=== PATIENT | male | born 1960 | race Caucasian/White ===

== ENCOUNTER 2018-02-26 17:22 | Emergency (ER) | payer BC ==
[2018-02-26 17:36] VITALS: BP 140/85
[2018-02-26] MEDS ORDERED: Sodium Chloride 0.9% 10 ML Syringe FLUSH PRN ×2 (17:47→18:56)
[2018-02-26] MEDS ORDERED: HYDROmorphone 0.5 MG/0.5 ML SYRINGE IVPUSH ONE (17:49)
[2018-02-26] MEDS ORDERED: Sodium Chloride 0.9% 1,000 ML IV SCH (18:00)
--- NOTE | 2018-02-26 18:33 | EDM.PDOC ---
ED HPI GENERAL MEDICAL PROBLEM - General Chief Complaint: ENT Problem Stated Complaint: NECK SWELLING AFTER CERVICAL FUSION Time Seen by Provider: 02/26/18 17:32 Source of Information: Reports: Patient History Limitations: Reports: No Limitations - History of Present Illness INITIAL COMMENTS - FREE TEXT/NARRATIVE: The patient presents with a sore throat and trouble swallowing. The patient had cervical spine surgery with an anterior technique at [facility] in [place] earlier this week. He was discharged from [facility] on Thursday. He is now having a sore throat, trouble swallowing and swelling in his throat and neck. He has more pain in his neck but he is not taking his pain meds as prescribed. He has no numbness or weakness. He has no fever, chills, cough, chest pain, shortness of breath, abdominal pain, nausea or vomiting. He was seen at the walk in clinic yesterday and a rapid strep was negative. Onset: Gradual Duration: Day(s): (2) Location: Reports: Neck Quality: Reports: Sharp Severity: Moderate Improves with: Reports: None Worsens with: Reports: None Associated Symptoms: Denies: Chest Pain, Cough, Fever/Chills, Headaches, Nausea/ Vomiting, Shortness of Breath Treatments OIL DIPPER: Reports: Cervical Collar anterior throat Pain Score (Numeric/FACES): 7 - Related Data Allergies Allergy/AdvReac Type Severity Reaction Status Date / Time aspirin Allergy Anxiety Verified 02/26/18 17:36 Home Meds: Home Meds glipiZIDE [Glucotrol] 10 mg PO BID 03/23/15 [History] Carvedilol [Coreg] 6.25 mg PO BID 02/26/18 [History] Cyclobenzaprine [Flexeril] 10 mg PO TID PRN 02/26/18 [History] Diltiazem [Tiazac] 360 mg PO DAILY 02/26/18 [History] Hydrocodone/Acetaminophen [Hydrocodon-Acetaminophen 5-325] 1 each PO TID PRN [History] Polyethylene Glycol 3350 [MiraLAX] 17 gm PO DAILY PRN 02/26/18 [History] Ramipril [Altace] 10 mg PO DAILY 02/26/18 [History] Sennosides/Docusate Sodium [Senna-Docusate Sodium] 1 each PO DAILY 02/26/18 [ History] Past Medical History Cardiovascular History: Reports: Hypertension Endocrine/Metabolic History: Reports: Diabetes, Type II Social & Family History - Family History Family Medical History: Noncontributory - Tobacco Use Smoking Status *Q: Current Every Day Smoker Years of Tobacco use: 38 Packs/Tins Daily: 0.3 Second Hand Smoke Exposure: No - Caffeine Use Caffeine Use: Reports: Coffee - Alcohol Use Days Per Week of Alcohol Use: 7 Number of Drinks Per Day: 4 Total Drinks Per Week: 28 - Recreational Drug Use Recreational Drug Use: No ED ROS ENT - Review of Systems Review Of Systems: See Below Constitutional: Reports: No Symptoms HEENT: Reports: Throat Pain, Throat Swelling Respiratory: Reports: No Symptoms Cardiovascular: Reports: No Symptoms Endocrine: Reports: No Symptoms GI/Abdominal: Reports: No Symptoms : Reports: No Symptoms Musculoskeletal: Reports: Neck Pain Skin: Reports: No Symptoms Neurological: Reports: No Symptoms ED EXAM, ENT - Physical Exam Exam: See Below Exam Limited By: No Limitations General Appearance: Alert, No Apparent Distress Ears: Normal External Exam Nose: Normal Inspection Mouth/Throat: Normal Oropharynx, Other (Dry mucus membranes) Head: Atraumatic, Normocephalic Neck: Other (Anterior scar with no erythema, drainage or edema. The tissue around that area is soft with mild edema.) Respiratory/Chest: No Respiratory Distress, Lungs Clear, Normal Breath Sounds Cardiovascular: Regular Rate, Rhythm, No Edema, No Murmur GI/Abdominal: Soft, Non-Tender, No Organomegaly, No Mass Back: Normal Inspection Extremities: Normal Inspection Neurological: Alert, Oriented, No Motor/Sensory Deficits Course - Vital Signs Last Recorded V/S: Last Vital Signs Temp 98.3 F 02/26/18 17:28 Pulse 77 02/26/18 17:28 Resp 18 02/26/18 17:28 BP 140/85 02/26/18 17:28 Pulse Ox 98 02/26/18 17:28 - Orders/Labs/Meds Orders: Active Orders 24 hr Category Date Time Status Cardiac Monitoring [RC] . DIRECTED Care 02/26/18 17:47 Active Peripheral IV Care [RC] . DIRECTED Care 02/26/18 17:49 Active Soft Tissue Neck w Cont [CT] Stat Exams 02/26/18 18:55 Taken Sodium Chloride 0.9% [Normal Saline] 1,000 ml Med 02/26/18 18:00 Active IV ASDIRECTED Sodium Chloride 0.9% [Saline Flush] Med 02/26/18 17:47 Active 10 ml FLUSH ASDIRECTED PRN Sodium Chloride 0.9% [Saline Flush] Med 02/26/18 18:56 Active 10 ml FLUSH ONETIME PRN Peripheral IV Insertion Adult [OM.PC] Stat Oth 02/26/18 17:47 Ordered Medication Orders Sodium Chloride (Normal Saline) 1,000 mls @ 125 mls/hr IV ASDIRECTED CORTEZ Last Admin: 02/26/18 18:01 Dose: 125 mls/hr Sodium Chloride (Saline Flush) 10 ml FLUSH ASDIRECTED PRN PRN Reason: Keep Vein Open Last Admin: 02/26/18 18:01 Dose: 10 ml Sodium Chloride (Saline Flush) 10 ml FLUSH ONETIME PRN PRN Reason: IV FLUSH Last Admin: 02/26/18 18:57 Dose: 10 ml Labs: Laboratory Tests 02/26/18 02/26/18 Range/Units 17:55 17:55 WBC 5.30 (4.23-9.07) K/mm3 RBC 3.98 L (4.63-6.08) M/mm3 Hgb 13.3 L (13.7-17.5) gm/L Hct 37.5 L (40.1-51.0) % MCV 94.2 H (79.0-92.2) fl MCH 33.4 H (25.7-32.2) pg MCHC 35.5 (32.2-35.5) g/dl RDW Std Deviation 38.2 (35.1-43.9) fL Plt Count 137 L (163-337) K/mm3 MPV 10.6 (9.4-12.3) fl Neut % (Auto) 71.5 H (34.0-67.9) % Lymph % (Auto) 13.8 L (21.8-53.1) % [place] % (Auto) 12.6 H (5.3-12.2) % Eos % (Auto) 1.7 (0.8-7.0) Baso % (Auto) 0.2 (0.1-1.2) % Neut # (Auto) 3.79 (1.78-5.38) K/mm3 Lymph # (Auto) 0.73 L (1.32-3.57) K/mm3 [place] # (Auto) 0.67 (0.30-0.82) K/mm3 Eos # (Auto) 0.09 (0.04-0.54) K/mm3 Baso # (Auto) 0.01 (0.01-0.08) K/mm3 Sodium 133 L (136-145) mEq/L Potassium 3.8 (3.5-5.1) mEq/L Chloride 97 L (98-107) mEq/L Carbon Dioxide 26 (21-32) mEq/L Anion Gap 13.8 (5-15) BUN 13 (7-18) mg/dL Creatinine 0.9 (0.7-1.3) mg/dL Est Cr Clr Drug Dosing 106.56 mL/min Estimated GFR (MDRD) > 60 (>60) mL/min BUN/Creatinine Ratio 14.4 (14-18) Glucose 285 H (74-106) mg/dL Calcium 8.9 (8.5-10.1) mg/dL Total Bilirubin 0.8 (0.2-1.0) mg/dL AST 5 L (15-37) U/L ALT 20 (16-63) U/L Alkaline Phosphatase 55 (46-116) U/L Total Protein 6.8 (6.4-8.2) g/dl Albumin 3.5 (3.4-5.0) g/dl Globulin 3.3 gm/dL Albumin/Globulin Ratio 1.1 (1-2) Meds: Medications Generic Name Dose Route Start Last Admin Trade Name Freq PRN Reason Stop Dose Admin Sodium Chloride 1,000 mls @ 125 mls/hr 02/26/18 18:00 02/26/18 18:01 Normal Saline IV 125 mls/hr ASDIRECTED CORTEZ Administration Sodium Chloride 10 ml 02/26/18 17:47 02/26/18 18:01 Saline Flush FLUSH 10 ml ASDIRECTED PRN Administration Keep Vein Open Sodium Chloride 10 ml 02/26/18 18:56 02/26/18 18:57 Saline Flush FLUSH 10 ml ONETIME PRN Administration IV FLUSH Discontinued Medications Generic Name Dose Route Start Last Admin Trade Name Freq PRN Reason Stop Dose Admin Hydromorphone HCl 0.5 mg 02/26/18 17:49 02/26/18 18:01 Dilaudid IVPUSH 02/26/18 17:50 0.5 mg ONETIME ONE Administration Iopamidol 100 ml 02/26/18 18:56 02/26/18 18:57 Isovue-300 (61%) IVPUSH 02/26/18 18:57 100 ml ONETIME ONE Administration - Re-Assessments/Exams Free Text/Narrative Re-Assessment/Exam: 02/26/18 18:33 I ordered an IV NS at 125mL/hr, dilaudid 0.5mg IV, labs and a CT of the soft tissue of his neck with IV contrast. 02/26/18 19:11 His CBC looks good. His blood sugar was elevated at 285. I am waiting on the CT now. 02/26/18 19:[address] looks good. There is postoperative changes but no swelling or pushing on the airway. He does have a 1.5cm nodule in the left thyroid. He will need to see his doctor and have an US. Departure - Departure Time of Disposition: 19:25 Disposition: Home, Self-Care 01 Condition: Good Clinical Impression: Sore throat, Thyroid nodule - Discharge Information Referrals: Peng Norman Jr, MD [Primary Care Provider] - 1 Week Forms: ED Department Discharge Additional Instructions: Take your medication as prescribed. On CT you had a 1.5cm thyroid nodule. Follow up with your doctor. He may need to order an US to look at it. Please return if you are worse. - My Orders Last 24 Hours: My Active Orders 02/26/18 17:47 Cardiac Monitoring [RC] . DIRECTED Sodium Chloride 0.9% [Saline Flush] 10 ml FLUSH ASDIRECTED PRN Peripheral IV Insertion Adult [OM.PC] Stat 02/26/18 17:49 Peripheral IV Care [RC] . DIRECTED 02/26/18 18:00 Sodium Chloride 0.9% [Normal Saline] 1,000 ml IV ASDIRECTED 02/26/18 18:55 Soft Tissue Neck w Cont [CT] Stat 02/26/18 18:56 Sodium Chloride 0.9% [Saline Flush] 10 ml FLUSH ONETIME PRN - Assessment/Plan Last 24 Hours: My Active Orders 02/26/18 17:47 Cardiac Monitoring [RC] . DIRECTED Sodium Chloride 0.9% [Saline Flush] 10 ml FLUSH ASDIRECTED PRN Peripheral IV Insertion Adult [OM.PC] Stat 02/26/18 17:49 Peripheral IV Care [RC] . DIRECTED 02/26/18 18:00 Sodium Chloride 0.9% [Normal Saline] 1,000 ml IV ASDIRECTED 02/26/18 18:55 Soft Tissue Neck w Cont [CT] Stat 02/26/18 18:56 Sodium Chloride 0.9% [Saline Flush] 10 ml FLUSH ONETIME PRN
[2018-02-26] MEDS ORDERED: Iopamidol 612 MG/ML 100 ML Bottle IVPUSH ONE (18:56)
--- NOTE | 2018-02-27 16:37 | CT ---
CT neck Technique: Multiple axial sections through the neck were obtained. Intravenous contrast was utilized. Reconstructed coronal and sagittal images were reviewed. Findings: Evidence of previous cervical spine surgery is seen with anterior plate and screws. There is low density noted with thickening seen within the prevertebral soft tissues most likely due to normal postoperative swelling. No focal findings of abscess are seen at this time. Submandibular and parotid salivary glands are within normal limits. Normal-appearing lymph nodes seen within both sides of the neck. Atherosclerotic calcification is noted within the carotid siphon. Opacified left maxillary sinus is seen which appears to be chronic. Retention cyst is identified within the right maxillary sinus measuring 1.3 cm. Thyroid gland shows small area of non-enhancement within both posterior lower lobes most likely incidental. Impression: 1. Previous cervical spine surgery. Low density with soft tissue swelling noted within the prevertebral soft tissues most likely due to normal postoperative swelling. 2. Chronic appearing sinus findings. 3. Low density within the posterior thyroid gland most likely incidental. 4. Nothing acute is appreciated on CT study of the neck. Diagnostic code #2 I agree with preliminary report from [facility], finalized at 02/26/18, 8:14 PM Central Time
== END 2018-02-26 19:33 | disposition home or self-care (01) ==
LOC: JD.ED 17:22
DX: J02.9 Acute pharyngitis, unspecified (principal); E04.1 Nontoxic single thyroid nodule; I10 Essential (primary) hypertension; E11.9 Type 2 diabetes mellitus without complications; F17.210 Nicotine dependence, cigarettes, uncomplicated; Z88.6 Allergy status to analgesic agent; Z79.899 Other long term (current) drug therapy
CPT/HCPCS: 36415; 70491; 80053; 85025; 96361; 96374; 99284; J1170; J7040; J7050; Q9967

== ENCOUNTER 2018-05-19 19:57 | Emergency (ER) | payer BC ==
[2018-05-19 20:05] VITALS: BP 165/96
[2018-05-19] MEDS ORDERED: Sodium Chloride 0.9% 10 ML Syringe FLUSH PRN (20:43)
--- NOTE | 2018-05-19 20:49 | EDM.PDOC ---
ED HPI GENERAL MEDICAL PROBLEM - General Chief Complaint: Respiratory Problem Stated Complaint: COUGH Time Seen by Provider: 05/19/18 20:11 Source of Information: Reports: Patient, Family History Limitations: Reports: No Limitations - History of Present Illness INITIAL COMMENTS - FREE TEXT/NARRATIVE: Patient is a 57-year-old male presents emergency department complaining of a cough. Patient states he has had a significant cough for the last week and a half and has been unable to get rid of it with [id number] medications. Patient states he had the cough is productive of white mucus. Patient reports feeling warm/subjective temperature yesterday, back pain, chest congestion with a heavy feeling, and constipation. He denies any chills nausea vomiting abdominal pain diarrhea or rashes itches or joint pains. Patient does admit experiencing lower extremity edema which is new for him. Patient denies any history of cardiac problems. He states he recently had a workup which was negative for any cardiac diagnoses. However, patient states that he has had to sleep in his recliner lately because when he lays down flat it makes his coughing much worse. Onset: Gradual Duration: Week(s): (1.5), Getting Worse Location: Reports: Other (See history of present illness) Quality: Reports: Other (CHPI) Severity: Moderate Improves with: Reports: None Worsens with: Reports: Rest Context: Reports: Other (See history of present illness) Associated Symptoms: Reports: Cough, cough w sputum, Shortness of Breath, Other (Peripheral edema, orthopnea). Denies: Diaphoresis, Headaches, Loss of Appetite , Malaise, Nausea/Vomiting, Seizure Bilateral Chest Pain Score (Numeric/FACES): 6 - Related Data Allergies Allergy/AdvReac Type Severity Reaction Status Date / Time aspirin Allergy Anxiety Verified 05/19/18 20:05 Home Meds: Home Meds glipiZIDE [Glucotrol] 10 mg PO BID 03/23/15 [History] Carvedilol [Coreg] 6.25 mg PO BID 02/26/18 [History] Cyclobenzaprine [Flexeril] 10 mg PO TID PRN 02/26/18 [History] Diltiazem [Tiazac] 360 mg PO DAILY 02/26/18 [History] Hydrocodone/Acetaminophen [Hydrocodon-Acetaminophen 5-325] 1 each PO TID PRN [History] Polyethylene Glycol 3350 [MiraLAX] 17 gm PO DAILY PRN 02/26/18 [History] Ramipril [Altace] 10 mg PO DAILY 02/26/18 [History] Sennosides/Docusate Sodium [Senna-Docusate Sodium] 1 each PO DAILY 02/26/18 [ History] Cephalexin [Keflex] 500 mg PO Q8HR #30 capsule 05/19/18 [Rx] Furosemide [Lasix] 20 mg PO DAILY #5 tab 05/19/18 [Rx] Past Medical History Cardiovascular History: Reports: Hypertension Respiratory History: Reports: Pneumonia, Recurrent Psychiatric History: Reports: Anxiety Endocrine/Metabolic History: Reports: Diabetes, Type II - Past Surgical History HEENT Surgical History: Reports: Adenoidectomy, Tonsillectomy Neurological Surgical History: Reports: C-Spine Other Neurological Surgeries/Procedures: cervical fusion Social & Family History - Family History Family Medical History: Noncontributory - Tobacco Use Smoking Status *Q: Current Every Day Smoker Years of Tobacco use: 35 Packs/Tins Daily: 0.4 - Caffeine Use Caffeine Use: Reports: Coffee - Alcohol Use Days Per Week of Alcohol Use: 7 Number of Drinks Per Day: 5 Total Drinks Per Week: 35 - Recreational Drug Use Recreational Drug Use: Yes ED ROS GENERAL - Review of Systems Review Of Systems: See Below Constitutional: Reports: Fever (Subjective temperature yesterday) HEENT: Reports: No Symptoms Respiratory: Reports: Shortness of Breath (Orthopnea), Cough, Sputum Cardiovascular: Reports: Edema, Orthopnea Endocrine: Reports: No Symptoms GI/Abdominal: Reports: Constipation : Reports: No Symptoms Musculoskeletal: Reports: Neck Pain (Postsurgical, C1-C7 fusion in the last month) Skin: Reports: No Symptoms Neurological: Reports: No Symptoms Psychiatric: Reports: No Symptoms Hematologic/Lymphatic: Reports: No Symptoms Immunologic: Reports: No Symptoms ED EXAM, GENERAL - Physical Exam Exam: See Below Exam Limited By: No Limitations General Appearance: Alert, WD/WN, No Apparent Distress, Mild Distress (With staccato cough) Eye Exam: Bilateral Eye: EOMI, PERRL Ears: Normal External Exam, Normal Canal, Hearing Grossly Normal, Normal TMs Ear Exam: Bilateral Ear: Auricle Normal, Canal Normal, TM normal Nose: Normal Inspection, Normal Mucosa, No Blood Throat/Mouth: Normal Inspection, Normal Lips, Normal Gums, Normal Oropharynx, Normal Voice, No Airway Compromise Head: Atraumatic, Normocephalic Neck: Normal Inspection (Postsurgical scarring) Respiratory/Chest: No Accessory Muscle Use, Chest Non-Tender, Decreased Breath Sounds, Wheezing. No: Respiratory Distress Cardiovascular: Normal Peripheral Pulses, Regular Rate, Rhythm, No Gallop, No JVD, No Rub, Systolic Murmur, Other (Bilateral peripheral edema) Peripheral Pulses: 4+: Radial (L), Radial (R) GI/Abdominal: Normal Bowel Sounds, Soft, Non-Tender, No Distention, No Abnormal Bruit, No Mass Back Exam: Normal Inspection Extremities: Normal Inspection, Normal Range of Motion, Non-Tender, Normal Capillary Refill, Pedal Edema Neurological: Alert, Oriented, CN II-XII Intact, Normal Cognition Psychiatric: Normal Affect, Normal Mood Skin Exam: Warm, Dry, Intact, Normal Color, No Rash Course - Vital Signs Last Recorded V/S: Last Vital Signs Temp 98.2 F 05/19/18 20:01 Pulse 89 05/19/18 20:01 Resp 20 05/19/18 20:01 BP 165/96 H 05/19/18 20:01 Pulse Ox 95 05/19/18 20:01 - Orders/Labs/Meds Orders: Active Orders 24 hr Category Date Time Status RT Aerosol Therapy [RC] ASDIRECTED Care 05/19/18 22:46 Active Chest 2V [CR] Stat Exams 05/19/18 20:43 Taken UA W/MICROSCOPIC [URIN] Stat Lab 05/19/18 21:24 Ordered Sodium Chloride 0.9% [Saline Flush] Med 05/19/18 20:43 Active 10 ml FLUSH ASDIRECTED PRN Saline Lock Insert [OM.PC] Stat Oth 05/19/18 20:42 Ordered EKG 12 Lead [EK] Stat Ther 05/19/18 22:47 Ordered Medication Orders Sodium Chloride (Saline Flush) 10 ml FLUSH ASDIRECTED PRN PRN Reason: Keep Vein Open Last Admin: 05/19/18 21:08 Dose: 10 ml Labs: Laboratory Tests 05/19/18 05/19/18 05/19/18 Range/Units 20:53 20:53 20:53 WBC 7.63 (4.23-9.07) K/mm3 RBC 4.41 L (4.63-6.08) M/mm3 Hgb 14.6 (13.7-17.5) gm/L Hct 41.4 (40.1-51.0) % MCV 93.9 H (79.0-92.2) fl MCH 33.1 H (25.7-32.2) pg MCHC 35.3 (32.2-35.5) g/dl RDW Std Deviation 44.0 H (35.1-43.9) fL Plt Count 178 (163-337) K/mm3 MPV 10.0 (9.4-12.3) fl Neut % (Auto) 77.7 H (34.0-67.9) % Lymph % (Auto) 11.1 L (21.8-53.1) % [place] % (Auto) 9.3 (5.3-12.2) % Eos % (Auto) 1.4 (0.8-7.0) Baso % (Auto) 0.1 (0.1-1.2) % Neut # (Auto) 5.92 H (1.78-5.38) K/mm3 Lymph # (Auto) 0.85 L (1.32-3.57) K/mm3 [place] # (Auto) 0.71 (0.30-0.82) K/mm3 Eos # (Auto) 0.11 (0.04-0.54) K/mm3 Baso # (Auto) 0.01 (0.01-0.08) K/mm3 Sodium 138 (136-145) mEq/L Potassium 3.4 L (3.5-5.1) mEq/L Chloride 100 (98-107) mEq/L Carbon Dioxide 26 (21-32) mEq/L Anion Gap 15.4 H (5-15) BUN 9 (7-18) mg/dL Creatinine 1.0 (0.7-1.3) mg/dL Est Cr Clr Drug Dosing 95.90 mL/min Estimated GFR (MDRD) > 60 (>60) mL/min BUN/Creatinine Ratio 9.0 L (14-18) Glucose 343 H (74-106) mg/dL Calcium 8.6 (8.5-10.1) mg/dL Total Bilirubin 0.5 (0.2-1.0) mg/dL AST 21 (15-37) U/L ALT 41 (16-63) U/L Alkaline Phosphatase 85 (46-116) U/L Troponin I < 0.017 (0.00-0.056) ng/mL NT-Pro-B Natriuret Pep 251 H (0-125) pg/mL Total Protein 6.6 (6.4-8.2) g/dl Albumin 3.5 (3.4-5.0) g/dl Globulin 3.1 gm/dL Albumin/Globulin Ratio 1.1 (1-2) Urine Color (Yellow) Urine Appearance (Clear) Urine pH (5.0-8.0) Ur Specific [place] (1.005-1.030) Urine Protein (Negative) Urine Glucose (UA) (Negative) Urine Ketones (Negative) Urine Occult Blood (Negative) Urine Nitrite (Negative) Urine Bilirubin (Negative) Urine Urobilinogen (0.2-1.0) Ur Leukocyte Esterase (Negative) Urine RBC (0-5) /hpf Urine WBC (0-5) /hpf Urine WBC Clumps (NOT SEEN) /hpf Ur Epithelial Cells (0-5) /hpf Urine Bacteria (FEW) /hpf Urine Mucus (FEW) /hpf 05/19/18 05/19/18 Range/Units 21:24 23:05 WBC (4.23-9.07) K/mm3 RBC (4.63-6.08) M/mm3 Hgb (13.7-17.5) gm/L Hct (40.1-51.0) % MCV (79.0-92.2) fl MCH (25.7-32.2) pg MCHC (32.2-35.5) g/dl RDW Std Deviation (35.1-43.9) fL Plt Count (163-337) K/mm3 MPV (9.4-12.3) fl Neut % (Auto) (34.0-67.9) % Lymph % (Auto) (21.8-53.1) % [place] % (Auto) (5.3-12.2) % Eos % (Auto) (0.8-7.0) Baso % (Auto) (0.1-1.2) % Neut # (Auto) (1.78-5.38) K/mm3 Lymph # (Auto) (1.32-3.57) K/mm3 [place] # (Auto) (0.30-0.82) K/mm3 Eos # (Auto) (0.04-0.54) K/mm3 Baso # (Auto) (0.01-0.08) K/mm3 Sodium (136-145) mEq/L Potassium (3.5-5.1) mEq/L Chloride (98-107) mEq/L Carbon Dioxide (21-32) mEq/L Anion Gap (5-15) BUN (7-18) mg/dL Creatinine (0.7-1.3) mg/dL Est Cr Clr Drug Dosing mL/min Estimated GFR (MDRD) (>60) mL/min BUN/Creatinine Ratio (14-18) Glucose (74-106) mg/dL Calcium (8.5-10.1) mg/dL Total Bilirubin (0.2-1.0) mg/dL AST (15-37) U/L ALT (16-63) U/L Alkaline Phosphatase (46-116) U/L Troponin I < 0.017 (0.00-0.056) ng/mL NT-Pro-B Natriuret Pep (0-125) pg/mL Total Protein (6.4-8.2) g/dl Albumin (3.4-5.0) g/dl Globulin gm/dL Albumin/Globulin Ratio (1-2) Urine Color Yellow (Yellow) Urine Appearance Clear (Clear) Urine pH 6.5 (5.0-8.0) Ur Specific [place] 1.015 (1.005-1.030) Urine Protein Negative (Negative) Urine Glucose (UA) 3+ H (Negative) Urine Ketones Trace H (Negative) Urine Occult Blood 1+ H (Negative) Urine Nitrite Negative (Negative) Urine Bilirubin Negative (Negative) Urine Urobilinogen 0.2 (0.2-1.0) Ur Leukocyte Esterase 1+ H (Negative) Urine RBC 0-5 (0-5) /hpf Urine WBC 10-20 H (0-5) /hpf Urine WBC Clumps Few (NOT SEEN) /hpf Ur Epithelial Cells 0-5 (0-5) /hpf Urine Bacteria Rare (FEW) /hpf Urine Mucus Not seen (FEW) /hpf Meds: Medications Generic Name Dose Route Start Last Admin Trade Name Freq PRN Reason Stop Dose Admin Sodium Chloride 10 ml 05/19/18 20:43 05/19/18 21:08 Saline Flush FLUSH 10 ml ASDIRECTED PRN Administration Keep Vein Open Discontinued Medications Generic Name Dose Route Start Last Admin Trade Name Zahida PRN Reason Stop Dose Admin Albuterol 2.5 mg 05/19/18 22:46 05/19/18 23:23 Proventil Neb Soln NEB 05/19/18 22:47 2.5 mg ONETIME ONE Administration Cephalexin 500 mg 05/19/18 22:45 05/19/18 22:56 Keflex PO 05/19/18 22:46 500 mg ONETIME ONE Administration Furosemide 40 mg 05/19/18 22:17 05/19/18 22:30 Lasix IVPUSH 05/19/18 22:18 40 mg NOW ONE Administration - Radiology Interpretation Free Text/Narrative:: Patient had a two-view chest x-ray which was interpreted by me as having no acute disease no focal infiltrate no pneumothorax no free air. Departure - Departure Time of Disposition: 23:44 Disposition: Refer to Observation Condition: Good Clinical Impression: CHF (congestive heart failure), NYHA class I Qualifiers: Congestive heart failure type: unspecified Qualified Code(s): I50.9 - Heart failure, unspecified Urinary tract infection Qualifiers: Urinary tract infection type: site unspecified Hematuria presence: without hematuria Qualified Code(s): N39.0 - Urinary tract infection, site not specified - Discharge Information *PRESCRIPTION DRUG MONITORING PROGRAM REVIEWED*: Not Applicable *COPY OF PRESCRIPTION DRUG MONITORING REPORT IN PATIENT [place]: Not Applicable Prescriptions: Cephalexin [Keflex] 500 mg PO Q8HR #30 capsule Furosemide [Lasix] 20 mg PO DAILY #5 tab Instructions: Urinary Tract Infection, Adult, Preventing Heart Failure Referrals: Peng Norman Jr, MD [Primary Care Provider] - Forms: ED Department Discharge - My Orders Last 24 Hours: My Active Orders 05/19/18 20:42 Saline Lock Insert [OM.PC] Stat 05/19/18 20:43 Chest 2V [CR] Stat Sodium Chloride 0.9% [Saline Flush] 10 ml FLUSH ASDIRECTED PRN 05/19/18 21:24 UA W/MICROSCOPIC [URIN] Stat 05/19/18 22:46 RT Aerosol Therapy [RC] ASDIRECTED 05/19/18 22:47 EKG 12 Lead [EK] Stat - Assessment/Plan Last 24 Hours: My Active Orders 05/19/18 20:42 Saline Lock Insert [OM.PC] Stat 05/19/18 20:43 Chest 2V [CR] Stat Sodium Chloride 0.9% [Saline Flush] 10 ml FLUSH ASDIRECTED PRN 05/19/18 21:24 UA W/MICROSCOPIC [URIN] Stat 05/19/18 22:46 RT Aerosol Therapy [RC] ASDIRECTED 05/19/18 22:47 EKG 12 Lead [EK] Stat
[2018-05-19] MEDS ORDERED: Furosemide 40 MG/4 ML VIAL IVPUSH ONE (22:17)
[2018-05-19] MEDS ORDERED: Cephalexin 500 MG Cap PO ONE (22:45)
[2018-05-19] MEDS ORDERED: Albuterol 0.083% 2.5 MG/3 ML Neb Soln NEB ONE (22:46)
--- NOTE | 2018-05-19 23:53 | EDM.PDOC ---
ED HPI GENERAL MEDICAL PROBLEM - General Chief Complaint: Respiratory Problem Stated Complaint: COUGH Time Seen by Provider: 05/19/18 20:11 Source of Information: Reports: Patient, Family History Limitations: Reports: No Limitations - History of Present Illness INITIAL COMMENTS - FREE TEXT/NARRATIVE: Patient is a 57-year-old male presents emergency department complaining of a cough. Patient states he has had a significant cough for the last week and a half and has been unable to get rid of it with [id number] medications. Patient states he had the cough is productive of white mucus. Patient reports feeling warm/subjective temperature yesterday, back pain, chest congestion with a heavy feeling, and constipation. He denies any chills nausea vomiting abdominal pain diarrhea or rashes itches or joint pains. Patient does admit experiencing lower extremity edema which is new for him. Patient denies any history of cardiac problems. He states he recently had a workup which was negative for any cardiac diagnoses. However, patient states that he has had to sleep in his recliner lately because when he lays down flat it makes his coughing much worse. Onset: Gradual Duration: Week(s): (1.5), Getting Worse Location: Reports: Other (See history of present illness) Quality: Reports: Other (CHPI) Severity: Moderate Improves with: Reports: None Worsens with: Reports: Rest Context: Reports: Other (See history of present illness) Associated Symptoms: Reports: Cough, cough w sputum, Shortness of Breath, Other (Peripheral edema, orthopnea). Denies: Diaphoresis, Headaches, Loss of Appetite , Malaise, Nausea/Vomiting, Seizure Bilateral Chest Pain Score (Numeric/FACES): 6 - Related Data Allergies Allergy/AdvReac Type Severity Reaction Status Date / Time aspirin Allergy Anxiety Verified 05/19/18 20:05 Home Meds: Home Meds glipiZIDE [Glucotrol] 10 mg PO BID 03/23/15 [History] Carvedilol [Coreg] 6.25 mg PO BID 02/26/18 [History] Cyclobenzaprine [Flexeril] 10 mg PO TID PRN 02/26/18 [History] Diltiazem [Tiazac] 360 mg PO DAILY 02/26/18 [History] Hydrocodone/Acetaminophen [Hydrocodon-Acetaminophen 5-325] 1 each PO TID PRN [History] Polyethylene Glycol 3350 [MiraLAX] 17 gm PO DAILY PRN 02/26/18 [History] Ramipril [Altace] 10 mg PO DAILY 02/26/18 [History] Sennosides/Docusate Sodium [Senna-Docusate Sodium] 1 each PO DAILY 02/26/18 [ History] Cephalexin [Keflex] 500 mg PO Q8HR #30 capsule 05/19/18 [Rx] Furosemide [Lasix] 20 mg PO DAILY #5 tab 05/19/18 [Rx] Potassium Bicarb/Potassium Chl [Potassium Chloride] 25 meq PO DAILY #5 tab.eff 05/20/18 [Rx] Past Medical History Cardiovascular History: Reports: Hypertension Respiratory History: Reports: Pneumonia, Recurrent Psychiatric History: Reports: Anxiety Endocrine/Metabolic History: Reports: Diabetes, Type II - Past Surgical History HEENT Surgical History: Reports: Adenoidectomy, Tonsillectomy Neurological Surgical History: Reports: C-Spine Other Neurological Surgeries/Procedures: cervical fusion Social & Family History - Family History Family Medical History: Noncontributory - Tobacco Use Smoking Status *Q: Current Every Day Smoker Years of Tobacco use: 35 Packs/Tins Daily: 0.4 - Caffeine Use Caffeine Use: Reports: Coffee - Alcohol Use Days Per Week of Alcohol Use: 7 Number of Drinks Per Day: 5 Total Drinks Per Week: 35 - Recreational Drug Use Recreational Drug Use: Yes ED ROS GENERAL - Review of Systems Review Of Systems: See Below Constitutional: Reports: Fever (Subjective temperature). Denies: Chills, Diaphoresis HEENT: Reports: No Symptoms Respiratory: Reports: Shortness of Breath, Cough, Sputum Cardiovascular: Reports: Edema. Denies: Chest Pain Endocrine: Reports: No Symptoms GI/Abdominal: Reports: No Symptoms : Reports: No Symptoms Musculoskeletal: Reports: No Symptoms Skin: Reports: No Symptoms Neurological: Reports: No Symptoms Psychiatric: Reports: No Symptoms Hematologic/Lymphatic: Reports: No Symptoms Immunologic: Reports: No Symptoms ED EXAM, GENERAL - Physical Exam Exam: See Below Free Text/Narrative:: Patient is a 57-year-old male presents emergency department complaining of a cough. Patient states he has had a significant cough for the last week and a half and has been unable to get rid of it with [id number] medications. Patient states he had the cough is productive of white mucus. Patient reports feeling warm/subjective temperature yesterday, back pain, chest congestion with a heavy feeling, and constipation. He denies any chills nausea vomiting abdominal pain diarrhea or rashes itches or joint pains. Patient does admit experiencing lower extremity edema which is new for him. Patient denies any history of cardiac problems. He states he recently had a workup which was negative for any cardiac diagnoses. However, patient states that he has had to sleep in his recliner lately because when he lays down flat it makes his coughing much worse. Exam Limited By: No Limitations General Appearance: Alert, WD/WN, No Apparent Distress, Mild Distress (With staccato cough) Ears: Normal External Exam, Normal Canal, Hearing Grossly Normal, Normal TMs Ear Exam: Bilateral Ear: Auricle Normal, Canal Normal, TM normal Nose: Normal Inspection, Normal Mucosa, No Blood Throat/Mouth: Normal Inspection, Normal Lips, Normal Gums, Normal Oropharynx, Normal Voice, No Airway Compromise Head: Atraumatic, Normocephalic Neck: Normal Inspection (Postsurgical scarring) Respiratory/Chest: No Accessory Muscle Use, Chest Non-Tender, Decreased Breath Sounds, Wheezing. No: Respiratory Distress Cardiovascular: Normal Peripheral Pulses, Regular Rate, Rhythm, No Gallop, No JVD, No Rub, Systolic Murmur, Other (Bilateral peripheral edema) Peripheral Pulses: 4+: Radial (L), Radial (R) GI/Abdominal: Normal Bowel Sounds, Soft, Non-Tender, No Distention, No Abnormal Bruit, No Mass Back Exam: Normal Inspection Extremities: Normal Inspection, Normal Range of Motion, Non-Tender, Normal Capillary Refill, Pedal Edema Neurological: Alert, Oriented, CN II-XII Intact, Normal Cognition Psychiatric: Normal Affect, Normal Mood Skin Exam: Warm, Dry, Intact, Normal Color, No Rash Course - Vital Signs Last Recorded V/S: Last Vital Signs Temp 98.2 F 05/19/18 20:01 Pulse 89 05/19/18 20:01 Resp 20 05/19/18 20:01 BP 165/96 H 05/19/18 20:01 Pulse Ox 95 05/19/18 20:01 - Orders/Labs/Meds Orders: Active Orders 24 hr Category Date Time Status RT Aerosol Therapy [RC] ASDIRECTED Care 05/19/18 22:46 Active UA W/MICROSCOPIC [URIN] Stat Lab 05/19/18 21:24 Ordered Saline Lock Insert [OM.PC] Stat Oth 05/19/18 20:42 Ordered EKG 12 Lead [EK] Stat Ther 05/19/18 22:47 Ordered Labs: Laboratory Tests 05/19/18 05/19/18 05/19/18 Range/Units 20:53 20:53 20:53 WBC 7.63 (4.23-9.07) K/mm3 RBC 4.41 L (4.63-6.08) M/mm3 Hgb 14.6 (13.7-17.5) gm/L Hct 41.4 (40.1-51.0) % MCV 93.9 H (79.0-92.2) fl MCH 33.1 H (25.7-32.2) pg MCHC 35.3 (32.2-35.5) g/dl RDW Std Deviation 44.0 H (35.1-43.9) fL Plt Count 178 (163-337) K/mm3 MPV 10.0 (9.4-12.3) fl Neut % (Auto) 77.7 H (34.0-67.9) % Lymph % (Auto) 11.1 L (21.8-53.1) % Alpine % (Auto) 9.3 (5.3-12.2) % Eos % (Auto) 1.4 (0.8-7.0) Baso % (Auto) 0.1 (0.1-1.2) % Neut # (Auto) 5.92 H (1.78-5.38) K/mm3 Lymph # (Auto) 0.85 L (1.32-3.57) K/mm3 Alpine # (Auto) 0.71 (0.30-0.82) K/mm3 Eos # (Auto) 0.11 (0.04-0.54) K/mm3 Baso # (Auto) 0.01 (0.01-0.08) K/mm3 Sodium 138 (136-145) mEq/L Potassium 3.4 L (3.5-5.1) mEq/L Chloride 100 (98-107) mEq/L Carbon Dioxide 26 (21-32) mEq/L Anion Gap 15.4 H (5-15) BUN 9 (7-18) mg/dL Creatinine 1.0 (0.7-1.3) mg/dL Est Cr Clr Drug Dosing 95.90 mL/min Estimated GFR (MDRD) > 60 (>60) mL/min BUN/Creatinine Ratio 9.0 L (14-18) Glucose 343 H (74-106) mg/dL Calcium 8.6 (8.5-10.1) mg/dL Total Bilirubin 0.5 (0.2-1.0) mg/dL AST 21 (15-37) U/L ALT 41 (16-63) U/L Alkaline Phosphatase 85 (46-116) U/L Troponin I < 0.017 (0.00-0.056) ng/mL NT-Pro-B Natriuret Pep 251 H (0-125) pg/mL Total Protein 6.6 (6.4-8.2) g/dl Albumin 3.5 (3.4-5.0) g/dl Globulin 3.1 gm/dL Albumin/Globulin Ratio 1.1 (1-2) Urine Color (Yellow) Urine Appearance (Clear) Urine pH (5.0-8.0) Ur Specific [place] (1.005-1.030) Urine Protein (Negative) Urine Glucose (UA) (Negative) Urine Ketones (Negative) Urine Occult Blood (Negative) Urine Nitrite (Negative) Urine Bilirubin (Negative) Urine Urobilinogen (0.2-1.0) Ur Leukocyte Esterase (Negative) Urine RBC (0-5) /hpf Urine WBC (0-5) /hpf Urine WBC Clumps (NOT SEEN) /hpf Ur Epithelial Cells (0-5) /hpf Urine Bacteria (FEW) /hpf Urine Mucus (FEW) /hpf 05/19/18 05/19/18 Range/Units 21:24 23:05 WBC (4.23-9.07) K/mm3 RBC (4.63-6.08) M/mm3 Hgb (13.7-17.5) gm/L Hct (40.1-51.0) % MCV (79.0-92.2) fl MCH (25.7-32.2) pg MCHC (32.2-35.5) g/dl RDW Std Deviation (35.1-43.9) fL Plt Count (163-337) K/mm3 MPV (9.4-12.3) fl Neut % (Auto) (34.0-67.9) % Lymph % (Auto) (21.8-53.1) % Alpine % (Auto) (5.3-12.2) % Eos % (Auto) (0.8-7.0) Baso % (Auto) (0.1-1.2) % Neut # (Auto) (1.78-5.38) K/mm3 Lymph # (Auto) (1.32-3.57) K/mm3 Alpine # (Auto) (0.30-0.82) K/mm3 Eos # (Auto) (0.04-0.54) K/mm3 Baso # (Auto) (0.01-0.08) K/mm3 Sodium (136-145) mEq/L Potassium (3.5-5.1) mEq/L Chloride (98-107) mEq/L Carbon Dioxide (21-32) mEq/L Anion Gap (5-15) BUN (7-18) mg/dL Creatinine (0.7-1.3) mg/dL Est Cr Clr Drug Dosing mL/min Estimated GFR (MDRD) (>60) mL/min BUN/Creatinine Ratio (14-18) Glucose (74-106) mg/dL Calcium (8.5-10.1) mg/dL Total Bilirubin (0.2-1.0) mg/dL AST (15-37) U/L ALT (16-63) U/L Alkaline Phosphatase (46-116) U/L Troponin I < 0.017 (0.00-0.056) ng/mL NT-Pro-B Natriuret Pep (0-125) pg/mL Total Protein (6.4-8.2) g/dl Albumin (3.4-5.0) g/dl Globulin gm/dL Albumin/Globulin Ratio (1-2) Urine Color Yellow (Yellow) Urine Appearance Clear (Clear) Urine pH 6.5 (5.0-8.0) Ur Specific [place] 1.015 (1.005-1.030) Urine Protein Negative (Negative) Urine Glucose (UA) 3+ H (Negative) Urine Ketones Trace H (Negative) Urine Occult Blood 1+ H (Negative) Urine Nitrite Negative (Negative) Urine Bilirubin Negative (Negative) Urine Urobilinogen 0.2 (0.2-1.0) Ur Leukocyte Esterase 1+ H (Negative) Urine RBC 0-5 (0-5) /hpf Urine WBC 10-20 H (0-5) /hpf Urine WBC Clumps Few (NOT SEEN) /hpf Ur Epithelial Cells 0-5 (0-5) /hpf Urine Bacteria Rare (FEW) /hpf Urine Mucus Not seen (FEW) /hpf Meds: Medications Discontinued Medications Generic Name Dose Route Start Last Admin Trade Name Freq PRN Reason Stop Dose Admin Albuterol 2.5 mg 05/19/18 22:46 05/19/18 23:23 Proventil Neb Soln NEB 05/19/18 22:47 2.5 mg ONETIME ONE Administration Cephalexin 500 mg 05/19/18 22:45 05/19/18 22:56 Keflex PO 05/19/18 22:46 500 mg ONETIME ONE Administration Furosemide 40 mg 05/19/18 22:17 05/19/18 22:30 Lasix IVPUSH 05/19/18 22:18 40 mg NOW ONE Administration Sodium Chloride 10 ml 05/19/18 20:43 05/19/18 21:08 Saline Flush FLUSH 10 ml ASDIRECTED PRN Administration Keep Vein Open Departure - Departure Time of Disposition: 23:50 Disposition: Home, Self-Care 01 Condition: Good Clinical Impression: Hypokalemia CHF (congestive heart failure), NYHA class I Qualifiers: Congestive heart failure type: unspecified Qualified Code(s): I50.9 - Heart failure, unspecified Urinary tract infection Qualifiers: Urinary tract infection type: site unspecified Hematuria presence: without hematuria Qualified Code(s): N39.0 - Urinary tract infection, site not specified - Discharge Information *PRESCRIPTION DRUG MONITORING PROGRAM REVIEWED*: Not Applicable *COPY OF PRESCRIPTION DRUG MONITORING REPORT IN PATIENT [place]: Not Applicable Prescriptions: Cephalexin [Keflex] 500 mg PO Q8HR #30 capsule Furosemide [Lasix] 20 mg PO DAILY #5 tab Potassium Bicarb/Potassium Chl [Potassium Chloride] 25 meq PO DAILY #5 tab.eff Instructions: Urinary Tract Infection, Adult, Preventing Heart Failure Referrals: Peng Norman Jr, MD [Primary Care Provider] - 3 Days Forms: ED Department Discharge - My Orders Last 24 Hours: My Active Orders 05/19/18 20:42 Saline Lock Insert [OM.PC] Stat 05/19/18 21:24 UA W/MICROSCOPIC [URIN] Stat 05/19/18 22:46 RT Aerosol Therapy [RC] ASDIRECTED 05/19/18 22:47 EKG 12 Lead [EK] Stat - Assessment/Plan Last 24 Hours: My Active Orders 05/19/18 20:42 Saline Lock Insert [OM.PC] Stat 05/19/18 21:24 UA W/MICROSCOPIC [URIN] Stat 05/19/18 22:46 RT Aerosol Therapy [RC] ASDIRECTED 05/19/18 22:47 EKG 12 Lead [EK] Stat
--- NOTE | 2018-05-20 06:51 | CR ---
Chest: Two views of the chest were obtained. Comparison: Prior chest x-ray of 03/07/12. Heart size and mediastinum are normal. Lungs are clear. Degenerative endplate spurring noted within the mid and lower thoracic spine with minimal scoliosis. Prior cervical spine surgery is noted. Impression: 1. Incidental findings. Nothing acute is seen on two-view chest x-ray. Diagnostic code #2
== END 2018-05-20 00:15 | disposition home or self-care (01) ==
LOC: JD.ED 19:57
DX: I11.0 Hypertensive heart disease with heart failure (principal); I50.9 Heart failure, unspecified; N39.0 Urinary tract infection, site not specified; E87.6 Hypokalemia; F41.9 Anxiety disorder, unspecified; E11.9 Type 2 diabetes mellitus without complications; F17.210 Nicotine dependence, cigarettes, uncomplicated; Z79.84 Long term (current) use of oral hypoglycemic drugs; Z79.899 Other long term (current) drug therapy; Z79.82 Long term (current) use of aspirin
CPT/HCPCS: 36415; 71046; 80053; 81001; 83880; 84484; 85025; 94640; 96374; 99284; A9270; J1940; J7050

== ENCOUNTER 2018-12-17 12:41 | Emergency (ER) | payer BC ==
[2018-12-17 13:31] VITALS: BP 162/98
--- NOTE | 2018-12-17 13:36 | EDM.PDOC ---
ED HPI GENERAL MEDICAL PROBLEM - General Chief Complaint: Neck Problem Stated Complaint: NECK PAIN Time Seen by Provider: 12/17/18 13:33 Source of Information: Reports: Patient History Limitations: Reports: No Limitations - History of Present Illness INITIAL COMMENTS - FREE TEXT/NARRATIVE: 58-year-old male presents to the ED with persistent diffuse cervical neck pain and radiculopathy particularly in his left upper extremity. Patient underwent cervical fusion by --neurosurgeon in [place] at [facility] in January of this last year. Pain is markedly improved compared to before surgery but he has chronic pain in the neck and radicular pain in his left upper extremity. States the pain is has good days and bad days. He states the left arm seems to be slowly getting a bit stronger but he has marked evidence of triceps wasting and radiculopathy in the C7 nerve root distribution. He states he is usually on Percocet 10/325 mg tabs for pain relief but has run short this month. He has nothing to get him through the weekend. He cannot get his regular prescription filled until Thursday-- due to insurance purposes. Onset: Other (Chronic cervical neck pain) Duration: Chronic Location: Reports: Neck Quality: Reports: Ache, Burning, Other (Sedating shooting pain in the C7 dermatome left arm) Severity: Moderate (6 or 7 out of 10) Improves with: Reports: None Worsens with: Reports: None Context: Reports: Other (Has chronic cervical neck pain with previous fusion carried out in January of last year. Fortunately did not relieve all of his pain and continues to have radiculopathy left upper extremity.). 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: Other (see below) Posterior Neck Pain Score (Numeric/FACES): 8 - Related Data Allergies Allergy/AdvReac Type Severity Reaction Status Date / Time aspirin Allergy Anxiety Verified 08/21/18 06:07 Home Meds: Home Meds glipiZIDE [Glucotrol] 10 mg PO BID 03/23/15 [History] Diltiazem [Tiazac] 360 mg PO DAILY 02/26/18 [History] Hydrocodone/Acetaminophen [Hydrocodon-Acetaminophen 5-325] 1 each PO TID PRN [History] Ramipril [Altace] 10 mg PO DAILY 02/26/18 [History] Diclofenac Sodium [Voltaren] 50 mg PO TID #30 tab.ec 08/21/18 [Rx] oxyCODONE HCl/Acetaminophen [Percocet 10-325 mg Tablet] 1 each PO Q3H PRN #30 tablet 08/21/18 [Rx] Carvedilol 6.25 mg PO DAILY 09/17/18 [History] Gabapentin [Neurontin] 100 mg PO Q8H #30 capsule 09/17/18 [Rx] oxyCODONE HCl/Acetaminophen [Percocet 5-325 mg Tablet] 1 - 2 each PO Q4H PRN # 24 tablet 12/17/18 [Rx] Past Medical History Cardiovascular History: Reports: High Cholesterol, Hypertension Respiratory History: Reports: Pneumonia, Recurrent Musculoskeletal History: Reports: Neck Pain, Chronic, Osteoarthritis Neurological History: Reports: Neuropathy, Peripheral Psychiatric History: Reports: Anxiety Endocrine/Metabolic History: Reports: Diabetes, Type II - Past Surgical History HEENT Surgical History: Reports: Adenoidectomy, Tonsillectomy Neurological Surgical History: Reports: C-Spine Social & Family History - Family History Family Medical History: Noncontributory - Caffeine Use Caffeine Use: Reports: Coffee - Living Situation & Occupation Living situation: Reports: , with Spouse 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 Denies: Fever, Chills, Malaise HEENT: Reports: Glasses Respiratory: Reports: No Symptoms Cardiovascular: Reports: No Symptoms Endocrine: Reports: No Symptoms GI/Abdominal: Reports: Constipation (Occasional problems) : Reports: No Symptoms Musculoskeletal: Reports: Neck Pain ( left side), Shoulder Pain (Left side), Arm Pain Skin: Reports: No Symptoms (chronic cervical neck pain ) Neurological: Reports: Paresthesia (Left upper extremity to his thumb.) Psychiatric: Reports: No Symptoms Hematologic/Lymphatic: Reports: No Symptoms Immunologic: Reports: No Symptoms ED EXAM, UPPER BACK/NECK PAIN - Physical Exam Exam: See Below Exam Limited By: No Limitations General Appearance: Alert, WD/WN, Other (Appears very tired.) Eye Exam: Bilateral Eye: Normal Inspection Head Exam: Atraumatic, Normocephalic Neck Exam: Normal Alignment, Normal Inspection, Painful Range of Motion, Paraspinous Muscle Tender, Stiff Neck, Other (Bilaterally.). No: Full Range of Motion Nexus Criteria: Posterior, Midline Cervical Tenderness ( Healed midline cervical neck incision.) Cardiovascular/Respiratory: Regular Rate, Rhythm, No M/R/G, Normal Peripheral Pulses Course - Vital Signs Last Recorded V/S: Last Vital Signs Temp 36.2 C 12/17/18 13:29 Pulse 80 12/17/18 13:29 Resp 20 12/17/18 13:29 BP 162/98 H 12/17/18 13:29 Pulse Ox 100 12/17/18 13:29 - Radiology Interpretation Free Text/Narrative:: 58-year-old male presents to the ED with exacerbation of pain in his neck. Patient has had spinal fusion carried out by a neurosurgeon in [place] January of last year. This did relieve a good amount of pain in his neck and left upper extremity but not all of it. He usually manages with Percocet 10/325 mg tablets one every 6 hours. He ran out of medication prematurely this month. He has a prescription for refill of medication from Dr. Norman but this is unable to be filled until Thursday due to insurance purposes. He therefore has been without medicine for the last few days and is requesting analgesia to get through the weekend. Will write him a prescription for the Percocet 5/325 mg tabs one or 2 every 4 hours as needed for pain relief 24 tabs to get him through the weekend. Departure - Departure Time of Disposition: 13:33 Disposition: Home, Self-Care 01 Condition: Fair Clinical Impression: Cervicalgia, Cervical radiculopathy, chronic - Discharge Information *PRESCRIPTION DRUG MONITORING PROGRAM REVIEWED*: Not Applicable *COPY OF PRESCRIPTION DRUG MONITORING REPORT IN PATIENT [place]: Not Applicable Prescriptions: oxyCODONE HCl/Acetaminophen [Percocet 5-325 mg Tablet] 1 - 2 each PO Q4H PRN # 24 tablet PRN Reason: pain relief. Referrals: Peng Norman Jr, MD [Primary Care Provider] - Forms: ED Department Discharge Additional Instructions: Evaluation in the emergency room in regards to chronic cervical /neck pain . Continued pain post surgery with Lt sided radicular pain. ran short of pain pills this month. Script written for Percocet 5/325mg tabs-- take 1-2 tabs every 4-6hrs as needed for pain relief over the weekend until able to get regular prescription re filled for chronic pain.
== END 2018-12-17 13:44 | disposition home or self-care (01) ==
LOC: JD.ED 12:41
DX: M54.12 Radiculopathy, cervical region (principal); I10 Essential (primary) hypertension; E11.9 Type 2 diabetes mellitus without complications
CPT/HCPCS: 99283

== ENCOUNTER 2019-01-16 18:15 | Emergency (ER) | payer BC ==
[2019-01-16 18:38] VITALS: BP 141/83
[2019-01-16] MEDS ORDERED: Ketorolac 30 MG/ML SDV IM ONE (19:01)
--- NOTE | 2019-01-16 19:05 | EDM.PDOC ---
ED HPI GENERAL MEDICAL PROBLEM - General Chief Complaint: Neck Problem Stated Complaint: SEVERE PAIN IN NECK AND LEFT ARM Time Seen by Provider: 01/16/19 18:36 Source of Information: Reports: Patient History Limitations: Reports: No Limitations - History of Present Illness INITIAL COMMENTS - FREE TEXT/NARRATIVE: Pt is 58 yo M here for chronic neck pain that radiates to left arm. He states he is taking Oxycodone 10mg TID but it hasn't worked for 3 weeks now. He has an appointment with his PCP, Dr. Norman, on Thursday. He is here for management of chronic pain. Left Arm Pain Score (Numeric/FACES): 8 Neck Pain Score (Numeric/FACES): 8 - Related Data Allergies Allergy/AdvReac Type Severity Reaction Status Date / Time aspirin Allergy Anxiety Verified 01/16/19 18:38 Home Meds: Home Meds glipiZIDE [Glucotrol] 10 mg PO BID 03/23/15 [History] Diltiazem [Tiazac] 360 mg PO DAILY 02/26/18 [History] Ramipril [Altace] 10 mg PO DAILY 02/26/18 [History] Diclofenac Sodium [Voltaren] 50 mg PO TID #30 tab.ec 08/21/18 [Rx] Carvedilol 6.25 mg PO DAILY 09/17/18 [History] oxyCODONE HCl/Acetaminophen [Percocet 5-325 mg Tablet] 1 - 2 each PO Q4H PRN # 24 tablet 12/17/18 [Rx] predniSONE [Prednisone] 20 mg PO DAILY 01/16/19 [History] predniSONE [Prednisone] 20 mg PO DAILY #2 tablet 01/16/19 [Rx] Past Medical History Cardiovascular History: Reports: High Cholesterol, Hypertension Respiratory History: Reports: Pneumonia, Recurrent Musculoskeletal History: Reports: Neck Pain, Chronic, Osteoarthritis Neurological History: Reports: Neuropathy, Peripheral Psychiatric History: Reports: Anxiety Endocrine/Metabolic History: Reports: Diabetes, Type II - Past Surgical History HEENT Surgical History: Reports: Adenoidectomy, Tonsillectomy Neurological Surgical History: Reports: C-Spine Social & Family History - Family History Family Medical History: Noncontributory - Caffeine Use Caffeine Use: Reports: Coffee - Living Situation & Occupation Living situation: Reports: , with Spouse Occupation: Employed ([email or web address]) ED ROS GENERAL - Review of Systems Review Of Systems: ROS reveals no pertinent complaints other than HPI. ED EXAM, UPPER BACK/NECK PAIN - Physical Exam Exam: See Below Exam Limited By: No Limitations General Appearance: Alert, WD/WN, Mild Distress Eye Exam: Bilateral Eye: EOMI, Normal Inspection, PERRL Ears Exam: Normal External Exam, Hearing Grossly Normal Nose Exam: Normal Inspection, Normal Mucousa, No Blood Head Exam: Atraumatic, Normocephalic Neck Exam: Limited Range of Motion, Painful Range of Motion, Stiff Neck, Tenderness Back Exam: Normal Inspection Extremities: Normal Inspection, Normal Range of Motion, Non-Tender, No Pedal Edema, Normal Capillary Refill Psychiatric: Normal Affect, Normal Mood Skin Exam: Normal Color, Warm/Dry Course - Vital Signs Last Recorded V/S: Last Vital Signs Temp 98.0 F 01/16/19 18:35 Pulse 89 01/16/19 18:35 Resp 20 01/16/19 18:35 BP 141/83 H 01/16/19 18:35 Pulse Ox 95 01/16/19 18:35 - Orders/Labs/Meds Meds: Medications Discontinued Medications Generic Name Dose Route Start Last Admin Trade Name Zahida PRN Reason Stop Dose Admin Ketorolac Tromethamine 30 mg 01/16/19 19:01 01/16/19 19:07 Toradol IM 01/16/19 19:02 30 mg ONETIME ONE Administration - Re-Assessments/Exams Free Text/Narrative Re-Assessment/Exam: 01/16/19 19:08 I have explained to Terrance that we do not treat chronic pain in the ED, especially not with opioids. However, I did tell him will give him a dose of Toradol while he is here to see if that helps. He has an appointment with his PCP on Thursday which is who he should be going to with this issue. He states he understands and would like to try the Toradol. 01/16/19 19:22 He did have some relief with the Toradol. Offered some prednisone which he is willing to try. Will send prescription in for him for a couple of days. Ultimately he understands he needs to f/u with PCP. Departure - Departure Time of Disposition: 19:11 Disposition: Home, Self-Care 01 Condition: Fair Clinical Impression: Neck pain of over 3 months duration - Discharge Information *PRESCRIPTION DRUG MONITORING PROGRAM REVIEWED*: Yes *COPY OF PRESCRIPTION DRUG MONITORING REPORT IN PATIENT R[place]: Yes Prescriptions: predniSONE [Prednisone] 20 mg PO DAILY #2 tablet Instructions: What You Need to Know About Chronic Back Pain Referrals: Peng Norman Jr, MD [Primary Care Provider] - Forms: ED Department Discharge Additional Instructions: You were seen in the ED today for chronic neck and left arm pain. You were given Toradol while here, but it was explained that we do not treat chronic pain in the ED, especialyl not with opioids. Since you did have some relief with the Toradol, prednisone (steroid) will be prescribed to you for a couple of days until your appointment. Please keep your appointment with your primary care provider, Dr. Norman on Thursday, for follow up and further treatment. Please return to ED if new or worsening symptoms.
== END 2019-01-16 19:34 | disposition home or self-care (01) ==
LOC: JD.ED 18:15
DX: G89.29 Other chronic pain (principal); M54.2 Cervicalgia; E11.42 Type 2 diabetes mellitus with diabetic polyneuropathy; E78.00 Pure hypercholesterolemia, unspecified; I10 Essential (primary) hypertension; D41.9 Neoplasm of uncertain behavior of unspecified urinary organ; Z88.8 Allergy status to other drugs, medicaments and biological substances; Z79.899 Other long term (current) drug therapy; Z79.84 Long term (current) use of oral hypoglycemic drugs
CPT/HCPCS: 96372; 99283; J1885

== ENCOUNTER 2019-02-15 21:21 | Emergency (ER) | payer BC ==
[2019-02-15 21:48] VITALS: BP 167/102
[2019-02-15] MEDS ORDERED: HYDROmorphone 1 MG/ML Syringe IM ONE (21:51)
[2019-02-15] MEDS ORDERED: Promethazine 25 MG/ML SDV IM ONE (21:52)
--- NOTE | 2019-02-15 21:54 | EDM.PDOC ---
ED HPI GENERAL MEDICAL PROBLEM - General Chief Complaint: General Stated Complaint: NECK PAIN GOING DOWN LEFT ARM Time Seen by Provider: 02/15/19 21:51 Source of Information: Reports: Patient, Family (spouse) History Limitations: Reports: No Limitations - History of Present Illness INITIAL COMMENTS - FREE TEXT/NARRATIVE: 58-year-old male attends the ED primarily for pain management. He has found out that his son-in-law is stealing his narcotics. He is currently using 10/325 mg of Percocet every 4-6 hours for cervical neck pain with radiculopathy in the C7 nerve root distribution left upper extremity. Patient is a great deal of pain tonight since he's had no pain medication today. I get his prescription refilled until Thursday this week. He has appointment to follow-up with Dr. Norman this week. Plan is to get him to see a neural surgeon with a view to having the disc in his neck fixed. Denies any nausea or vomiting. He appears exhausted he's not slept well for the last 3 nights. Onset: Other (Has been having cervical neck pain with left upper extremity radiculopathy for greater than 6 weeks.) Duration: Constant, Getting Worse Location: Reports: Neck, Upper Extremity, Left (With radiculopathy into the left upper extremity all the way down to his thumb) Quality: Reports: Ache, Burning, Other Severity: Severe (Burning sharp stabbing lancinating 10 out of 10) Improves with: Reports: None Worsens with: Reports: None Context: Denies: Activity, Exercise, Lifting, Sick Contact, Trauma Associated Symptoms: Reports: Malaise. 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) (None.) Neck Pain Score (Numeric/FACES): 10 - Related Data Allergies Allergy/AdvReac Type Severity Reaction Status Date / Time aspirin Allergy Anxiety Verified 02/15/19 21:41 Home Meds: Home Meds glipiZIDE [Glucotrol] 10 mg PO BID 03/23/15 [History] Diltiazem [Tiazac] 360 mg PO DAILY 02/26/18 [History] Ramipril [Altace] 10 mg PO DAILY 02/26/18 [History] Diclofenac Sodium [Voltaren] 50 mg PO TID #30 tab.ec 08/21/18 [Rx] Carvedilol 6.25 mg PO DAILY 09/17/18 [History] oxyCODONE HCl/Acetaminophen [Percocet 5-325 mg Tablet] 1 - 2 each PO Q4H PRN # 24 tablet 12/17/18 [Rx] oxyCODONE HCl/Acetaminophen [Percocet 5-325 mg Tablet] 1 - 2 each PO Q4H PRN # 20 tablet 02/15/19 [Rx] Past Medical History Cardiovascular History: Reports: High Cholesterol, Hypertension Respiratory History: Reports: Pneumonia, Recurrent Musculoskeletal History: Reports: Neck Pain, Chronic (With radiculopathy left upper extremity.), Osteoarthritis Neurological History: Reports: Neuropathy, Peripheral Psychiatric History: Reports: Anxiety Endocrine/Metabolic History: Reports: Diabetes, Type II (On diet and oral medications) - Past Surgical History HEENT Surgical History: Reports: Adenoidectomy, Tonsillectomy Neurological Surgical History: Reports: C-Spine Social & Family History - Family History Family Medical History: Noncontributory - Caffeine Use Caffeine Use: Reports: Coffee - Living Situation & Occupation Living situation: Reports: , with Spouse Occupation: Employed ([employer]) ED ROS GENERAL - Review of Systems Review Of Systems: See Below Constitutional: Reports: Malaise, Weakness, Fatigue, Decreased Appetite (From not sleeping), Weight Loss. Denies: Fever, Chills HEENT: Reports: No Symptoms Respiratory: Reports: No Symptoms Cardiovascular: Reports: No Symptoms Endocrine: Reports: Fatigue GI/Abdominal: Reports: No Symptoms : Reports: Frequency Musculoskeletal: Reports: Neck Pain Skin: Reports: No Symptoms (Neck cervical neck pain radiating down his left upper extremity in the distribution of the C7 nerve root.) Neurological: Reports: Other (Wasting of his left triceps. Chronic radiculopathy left upper extremity) Psychiatric: Reports: No Symptoms Hematologic/Lymphatic: Reports: No Symptoms ( only to his thumb) Immunologic: Reports: No Symptoms ED EXAM, GENERAL - Physical Exam Exam: See Below Exam Limited By: No Limitations General Appearance: Alert, WD/WN, Moderate Distress Eye Exam: Bilateral Eye: Normal Inspection Neck: Other (Patient has diffuse cervical neck pain to palpation. He has a positive axial compression examination with radiculopathy in his left upper extremity with the head slightly extended and tilted to the left side. The triceps on the left upper extremity. No obvious interosseous muscle) Respiratory/Chest: No Respiratory Distress, Lungs Clear, Normal Breath Sounds, No Accessory Muscle Use Cardiovascular: Normal Peripheral Pulses, Regular Rate, Rhythm, No Edema, No Gallop, No Murmur ( atrophy in his hand yet.) Peripheral Pulses: 2+: Radial (L), Radial (R) Course - Vital Signs Last Recorded V/S: Last Vital Signs Temp 36.9 C 02/15/19 21:44 Pulse 81 02/15/19 21:44 Resp 18 02/15/19 21:44 BP 167/102 H 02/15/19 21:44 Pulse Ox 100 02/15/19 21:44 - Orders/Labs/Meds Meds: Medications Discontinued Medications Generic Name Dose Route Start Last Admin Trade Name Freq PRN Reason Stop Dose Admin Hydromorphone HCl 1 mg 02/15/19 21:51 02/15/19 22:04 Dilaudid IM 02/15/19 21:52 1 mg ONETIME ONE Administration Promethazine HCl 25 mg 02/15/19 21:52 02/15/19 22:04 Phenergan IM 02/15/19 21:53 25 mg ONETIME ONE Administration - Radiology Interpretation Free Text/Narrative:: 58-year-old male presents to the ED primarily for pain management. Patient is currently on oxycodone 10/325 mg tablets one every 4-6 hours no safe for pain management. Patient has chronic cervical neck pain with radiculopathy in the left upper extremity reveals C7 nerve root entrapment. This is confirmed by examination. He has identified that his son-in-law is stealing his narcotic medications. For his come up shorts and cannot get his medications refilled until Thursday this week. He has been performed to see Dr. Norman on Thursday this week. Plan is to refer him to a neurosurgeon for definitive neurosurgical management of herniated disc in his neck. He has not had sleep for 3 days. I will therefore give him that I am injection of Dilaudid 1 mg with Phenergan 25 mg IM for pain relief. I wrote a prescription for Percocet 5/325 mg tabs 2 tablets every 4 hours as needed for pain relief 20 tablets to get him through till Thursday this week. Departure - Departure Time of Disposition: 21:52 Disposition: Home, Self-Care 01 Condition: Fair Clinical Impression: Herniation of cervical intervertebral disc with radiculopathy - Discharge Information *PRESCRIPTION DRUG MONITORING PROGRAM REVIEWED*: No *COPY OF PRESCRIPTION DRUG MONITORING REPORT IN PATIENT [place]: No Prescriptions: oxyCODONE HCl/Acetaminophen [Percocet 5-325 mg Tablet] 1 - 2 each PO Q4H PRN # 20 tablet PRN Reason: pain relief. Instructions: Herniated Disk, [id number], Cervical Radiculopathy, Easy-to- Read Referrals: Peng Norman Jr, MD [Primary Care Provider] - Forms: ED Department Discharge Additional Instructions: Evaluation in the emergency him today in regards to severe neck pain radiating down the left arm in the distribution of C7 nerve root. Chronic pain problem due to cervical disc herniation. You're treated today with thinning intramuscular injection of Dilaudid 1 mg with Phenergan 25 mg IM to help alleviate pain for the next 4-6 hours and hopefully get to some sleep. Prescription tomorrow for Percocet 5/325 mg tablets 2 tablets every 4-6 hours needed for pain relief until follow-up with Dr. Norman on Thursday.
== END 2019-02-15 22:15 | disposition home or self-care (01) ==
LOC: JD.ED 21:21
DX: M50.13 Cervical disc disorder with radiculopathy, cervicothoracic region (principal); E78.00 Pure hypercholesterolemia, unspecified; I10 Essential (primary) hypertension; E11.42 Type 2 diabetes mellitus with diabetic polyneuropathy; Z88.8 Allergy status to other drugs, medicaments and biological substances; Z79.899 Other long term (current) drug therapy
CPT/HCPCS: 96372; 99283; J1170; J2550

== ENCOUNTER 2019-03-05 20:09 | Emergency (ER) | payer BC ==
[2019-03-05 20:22] VITALS: BP 150/85
[2019-03-05] MEDS ORDERED: HYDROmorphone 1 MG/ML Syringe IM ONE (20:38)
--- NOTE | 2019-03-05 20:48 | EDM.PDOC ---
ED HPI GENERAL MEDICAL PROBLEM - General Chief Complaint: General Stated Complaint: pain all over Time Seen by Provider: 03/05/19 20:13 Source of Information: Reports: Patient History Limitations: Reports: No Limitations - History of Present Illness INITIAL COMMENTS - FREE TEXT/NARRATIVE: There is a 58-year-old male. He comes to the ER because he complains of pain all over. He's had neck surgery so he has chronic cervical pain but he also has pain as he describes it in all of his joints including his legs his knees his hips and shoulders his hands. His family doctor who provides his pain medications switched and OxyContin 20 mg extended release a day and then his breakthrough pain and takes oxycodone 10 mg. It has not been helping today. So he comes to the ER for evaluation. I talked to him about the workup for polyarthralgia and that perhaps there something more going on with the rest of his body causing his joint pain and perhaps he needs to speak to his family doctor regarding this. I can certainly see why his neck might be painful but I' m not certain why all of his joints are painful. He assures me his doctor has worked him up in the past and all he needs is a little booster to get him over this pain. He says that the pain medications he takes now don't seem to be as effective as they used to be a very talked about the process of tolerance and that perhaps he needs to talk to his family doctor about switching him to a different medication and giving him a drug holiday so he'll be more effective. He says he'll talk to his doctor about this. He denies any fever or chills he denies any nausea or vomiting he denies any cough he denies any stomach pain he says he's not had any illnesses recently. Does not want a workup for his polyarthralgias he just needs a booster. 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 Generalized Pain Score (Numeric/FACES): 9 - Related Data Allergies Allergy/AdvReac Type Severity Reaction Status Date / Time aspirin Allergy Anxiety Verified 02/15/19 21:41 Home Meds: Home Meds glipiZIDE [Glucotrol] 10 mg PO BID 03/23/15 [History] Diltiazem [Tiazac] 360 mg PO DAILY 02/26/18 [History] Ramipril [Altace] 10 mg PO DAILY 02/26/18 [History] Diclofenac Sodium [Voltaren] 50 mg PO TID #30 tab.ec 08/21/18 [Rx] Carvedilol 6.25 mg PO DAILY 09/17/18 [History] oxyCODONE HCl/Acetaminophen [Percocet 5-325 mg Tablet] 1 - 2 each PO Q4H PRN # 24 tablet 12/17/18 [Rx] oxyCODONE HCl/Acetaminophen [Percocet 5-325 mg Tablet] 1 - 2 each PO Q4H PRN # 20 tablet 02/15/19 [Rx] Past Medical History Cardiovascular History: Reports: High Cholesterol, Hypertension Respiratory History: Reports: Pneumonia, Recurrent Musculoskeletal History: Reports: Neck Pain, Chronic, Osteoarthritis Neurological History: Reports: Neuropathy, Peripheral Psychiatric History: Reports: Anxiety Endocrine/Metabolic History: Reports: Diabetes, Type II - Past Surgical History HEENT Surgical History: Reports: Adenoidectomy, Tonsillectomy Neurological Surgical History: Reports: C-Spine Social & Family History - Family History Family Medical History: Noncontributory - Tobacco Use Smoking Status *Q: Unknown Ever Smoked - Caffeine Use Caffeine Use: Reports: Coffee - Recreational Drug Use Recreational Drug Use: No - Living Situation & Occupation Living situation: Reports: , with Spouse Occupation: Employed ([employer]) ED ROS GENERAL - Review of Systems Review Of Systems: See Below Constitutional: Reports: Malaise. Denies: Fever, Chills HEENT: Reports: No Symptoms Respiratory: Reports: No Symptoms Cardiovascular: Denies: Chest Pain Endocrine: Reports: No Symptoms GI/Abdominal: Reports: No Symptoms : Reports: No Symptoms Musculoskeletal: Reports: Neck Pain, Joint Pain Skin: Reports: No Symptoms Neurological: Reports: No Symptoms Psychiatric: Reports: Depression Hematologic/Lymphatic: Reports: No Symptoms ED EXAM, GENERAL - Physical Exam Exam: See Below Exam Limited By: No Limitations General Appearance: Alert, WD/WN, No Apparent Distress Eye Exam: Bilateral Eye: Normal Inspection Ears: Normal External Exam, Normal Canal, Normal TMs Nose: Normal Inspection Throat/Mouth: Normal Inspection, Normal Voice, No Airway Compromise, Other ( Teeth are in poor repair but he denies any particular tooth pain or drainage to suggest an infection and there is no facial swelling) Head: Normocephalic Neck: Other (Cervical spine appears to be tender all over, he has limited range of motion) Respiratory/Chest: No Respiratory Distress, Lungs Clear, Normal Breath Sounds Cardiovascular: Regular Rate, Rhythm, Other (Very faint murmur) GI/Abdominal: Soft, Non-Tender Back Exam: Decreased Range of Motion Extremities: Normal Inspection, Other (He appears to have full range of motion of his extremities, he walks rather slow and slumped) Neurological: Alert, Oriented Psychiatric: Depressed Mood, Flat Affect Skin Exam: Warm, Dry Course - Vital Signs Last Recorded V/S: Last Vital Signs Temp 97.3 F 03/05/19 20:20 Pulse 88 03/05/19 20:20 Resp 20 03/05/19 20:20 BP 150/85 H 03/05/19 20:20 Pulse Ox 98 03/05/19 20:20 - Orders/Labs/Meds Meds: Medications Discontinued Medications Generic Name Dose Route Start Last Admin Trade Name Freq PRN Reason Stop Dose Admin Hydromorphone HCl 1 mg 03/05/19 20:38 03/05/19 20:47 Dilaudid IM 03/05/19 20:39 1 mg ONETIME ONE Administration - Re-Assessments/Exams Free Text/Narrative Re-Assessment/Exam: 03/05/19 21:15 After the Dilaudid shot the patient states that his symptoms have eased up some though they have not gone away. Patient is wanting to go home now and he will follow-up with his family doctor. Departure - Departure Time of Disposition: 21:16 Disposition: Home, Self-Care 01 Condition: Fair Clinical Impression: Chronic cervical pain, Polyarthralgia - Discharge Information *PRESCRIPTION DRUG MONITORING PROGRAM REVIEWED*: Yes *COPY OF PRESCRIPTION DRUG MONITORING REPORT IN PATIENT R[place]: No Referrals: Peng Norman Jr, MD [Primary Care Provider] - Forms: ED Department Discharge Additional Instructions: Continue with your pain regimen as per Dr. Norman, follow up with him this week if the medications do not seem to be working or as effective as they used to be to see what he would suggest, return to the ER if needed
== END 2019-03-05 21:25 | disposition home or self-care (01) ==
LOC: JD.ED 20:09
DX: M25.50 Pain in unspecified joint (principal); M54.2 Cervicalgia; G89.29 Other chronic pain; I10 Essential (primary) hypertension; E78.00 Pure hypercholesterolemia, unspecified; E11.42 Type 2 diabetes mellitus with diabetic polyneuropathy; F41.9 Anxiety disorder, unspecified; Z79.84 Long term (current) use of oral hypoglycemic drugs; Z79.899 Other long term (current) drug therapy
CPT/HCPCS: 96372; 99283; J1170

== ENCOUNTER 2019-04-03 12:26 | Emergency (ER) | payer BC ==
[2019-04-03 12:48] VITALS: BP 152/96
[2019-04-03] MEDS ORDERED: HYDROmorphone 1 MG/ML Syringe IM ONE (13:06)
--- NOTE | 2019-04-03 13:13 | EDM.PDOC ---
ED HPI GENERAL MEDICAL PROBLEM - General Chief Complaint: Neck Problem Stated Complaint: ALL OVER PAIN Time Seen by Provider: 04/03/19 12:38 Source of Information: Reports: Patient History Limitations: Reports: No Limitations - History of Present Illness INITIAL COMMENTS - FREE TEXT/NARRATIVE: The patient presents with neck pain. This is a chronic problem. He has had surgery and he is under the care of a neurosurgeon and Dr Norman. The patient wanted to cut back so Dr Norman prescribed less of the percocet but now he is out and he is having more pain. He still has the oxycontins. He has numbness in his hands but that is chronic. Onset: Gradual Duration: Week(s): Location: Reports: Neck Quality: Reports: Sharp Severity: Severe Improves with: Reports: Immobilization Worsens with: Reports: Movement Associated Symptoms: Reports: No Other Symptoms Neck Pain Score (Numeric/FACES): 8 - Related Data Allergies Allergy/AdvReac Type Severity Reaction Status Date / Time aspirin Allergy Anxiety Verified 02/15/19 21:41 Home Meds: Home Meds glipiZIDE [Glucotrol] 10 mg PO BID 03/23/15 [History] Diltiazem [Tiazac] 360 mg PO DAILY 02/26/18 [History] Ramipril [Altace] 10 mg PO DAILY 02/26/18 [History] oxyCODONE HCl/Acetaminophen [Percocet 5-325 mg Tablet] 1 - 2 each PO Q4H PRN # 24 tablet 12/17/18 [Rx] oxyCODONE HCl [Oxycontin] 20 mg PO DAILY 04/03/19 [History] oxyCODONE HCl/Acetaminophen [Percocet 10-325 mg Tablet] 1 each PO Q6HR PRN #30 tablet 04/03/19 [Rx] Past Medical History Cardiovascular History: Reports: High Cholesterol, Hypertension Respiratory History: Reports: Pneumonia, Recurrent Musculoskeletal History: Reports: Neck Pain, Chronic, Osteoarthritis, Other ( See Below) Other Musculoskeletal History: neck surgery Neurological History: Reports: Neuropathy, Peripheral Psychiatric History: Reports: Anxiety Endocrine/Metabolic History: Reports: Diabetes, Type II - Past Surgical History HEENT Surgical History: Reports: Adenoidectomy, Tonsillectomy Neurological Surgical History: Reports: C-Spine Social & Family History - Family History Family Medical History: Noncontributory - Tobacco Use Smoking Status *Q: Current Every Day Smoker Years of Tobacco use: 40 Packs/Tins Daily: 0.3 - Caffeine Use Caffeine Use: Reports: Coffee - Recreational Drug Use Recreational Drug Use: No - Living Situation & Occupation Living situation: Reports: , with Spouse 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 GENERAL - Review of Systems Review Of Systems: See Below Constitutional: Reports: No Symptoms HEENT: Reports: No Symptoms Respiratory: Reports: No Symptoms Cardiovascular: Reports: No Symptoms Endocrine: Reports: No Symptoms GI/Abdominal: Reports: No Symptoms : Reports: No Symptoms Musculoskeletal: Reports: Neck Pain ED EXAM, UPPER BACK/NECK PAIN - Physical Exam Exam: See Below Exam Limited By: No Limitations General Appearance: Alert, No Apparent Distress Ears Exam: Normal External Exam Throat/Mouth Exam: Normal Inspection Head Exam: Atraumatic, Normocephalic Neck Exam: Other (Pain upon palpation to the posterior neck) Cardiovascular/Respiratory: Regular Rate, Rhythm, No M/R/G, Normal Breath Sounds , No Respiratory Distress GI/Abdominal: Soft, Non-Tender, No Organomegaly, No Mass Back Exam: Normal Inspection Course - Vital Signs Last Recorded V/S: Last Vital Signs Temp 98.0 F 04/03/19 12:46 Pulse 91 04/03/19 12:46 Resp 20 04/03/19 12:46 BP 152/96 H 04/03/19 12:46 Pulse Ox 95 04/03/19 12:46 - Orders/Labs/Meds Orders: Active Orders 24 hr Category Date Time Status HYDROmorphone [Dilaudid] Med 04/03/19 13:06 Once 1 mg IM ONETIME ONE - Re-Assessments/Exams Free Text/Narrative Re-Assessment/Exam: 04/03/19 13:10 I ordered a shot of dilaudid and I will get him a refill. Departure - Departure Time of Disposition: 13:15 Disposition: Home, Self-Care 01 Condition: Good Clinical Impression: Cervical radiculopathy, chronic - Discharge Information *PRESCRIPTION DRUG MONITORING PROGRAM REVIEWED*: Yes *COPY OF PRESCRIPTION DRUG MONITORING REPORT IN PATIENT R[place]: Yes Prescriptions: oxyCODONE HCl/Acetaminophen [Percocet 10-325 mg Tablet] 1 each PO Q6HR PRN #30 tablet PRN Reason: Pain Referrals: Peng Norman Jr, MD [Primary Care Provider] - Additional Instructions: Take your medication as prescribed. Please return if you are worse. - My Orders Last 24 Hours: My Active Orders 04/03/19 13:06 HYDROmorphone [Dilaudid] 1 mg IM ONETIME ONE - Assessment/Plan Last 24 Hours: My Active Orders 04/03/19 13:06 HYDROmorphone [Dilaudid] 1 mg IM ONETIME ONE
== END 2019-04-03 13:33 | disposition home or self-care (01) ==
LOC: JD.ED 12:26
DX: M54.12 Radiculopathy, cervical region (principal); I10 Essential (primary) hypertension; M19.90 Unspecified osteoarthritis, unspecified site; E11.9 Type 2 diabetes mellitus without complications; Z79.899 Other long term (current) drug therapy; F17.210 Nicotine dependence, cigarettes, uncomplicated; Z98.890 Other specified postprocedural states; Z88.6 Allergy status to analgesic agent
CPT/HCPCS: 96372; 99283; J1170

== ENCOUNTER 2019-04-14 23:33 | Emergency (ER) | payer BC ==
[2019-04-14 23:41] VITALS: BP 164/92
== END 2019-04-15 00:53 | disposition left against medical advice (07) ==
LOC: JD.ED 23:33
DX: Z53.21 Procedure and treatment not carried out due to patient leaving prior to being seen by health care provider (principal)

== ENCOUNTER 2019-04-20 23:41 | Emergency (ER) | payer BC ==
[2019-04-20 23:53] VITALS: BP 144/84
--- NOTE | 2019-04-20 23:54 | EDM.PDOC ---
ED HPI GENERAL MEDICAL PROBLEM - General Chief Complaint: Neck Problem Stated Complaint: PAIN IN ARM AND NECK Time Seen by Provider: 04/20/19 23:52 - History of Present Illness INITIAL COMMENTS - FREE TEXT/NARRATIVE: 58-year-old male presents emergency room chronic pain concerns The patient wants off his Percocet they usually takes 4 times a day. The patient had neck surgery several years ago and actually had a pretty good outcome but since this time is low back is got progressively worse and he does not want to have back surgery. He sees his regular doctor on a regular basis for his Percocet. At this time the patient states he really wants to get off the Percocet that is really concerned about having back surgery. The patient has not lost any bowel or bladder control. He has significant radicular symptoms. He states he had a good result from his neck surgeries Upper body strength back in the pain is much better but his back is continuing to get worse. Neck Pain Score (Numeric/FACES): 8 - Related Data Allergies Allergy/AdvReac Type Severity Reaction Status Date / Time aspirin Allergy Anxiety Verified 04/20/19 23:52 Home Meds: Home Meds glipiZIDE [Glucotrol] 10 mg PO BID 03/23/15 [History] Diltiazem [Tiazac] 360 mg PO DAILY 02/26/18 [History] Ramipril [Altace] 10 mg PO DAILY 02/26/18 [History] oxyCODONE HCl/Acetaminophen [Percocet 10-325 mg Tablet] 1 each PO Q6HR PRN #30 tablet 04/03/19 [Rx] Past Medical History Cardiovascular History: Reports: High Cholesterol, Hypertension Respiratory History: Reports: Pneumonia, Recurrent Musculoskeletal History: Reports: Neck Pain, Chronic, Osteoarthritis, Other ( See Below) Other Musculoskeletal History: neck surgery Neurological History: Reports: Neuropathy, Peripheral Psychiatric History: Reports: Anxiety Endocrine/Metabolic History: Reports: Diabetes, Type II - Past Surgical History HEENT Surgical History: Reports: Adenoidectomy, Tonsillectomy Neurological Surgical History: Reports: C-Spine Social & Family History - Family History Family Medical History: Noncontributory - Caffeine Use Caffeine Use: Reports: Coffee - Living Situation & Occupation Living situation: Reports: , with Spouse 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) ED ROS GENERAL - Review of Systems Review Of Systems: See Below Constitutional: Reports: No Symptoms HEENT: Reports: No Symptoms Respiratory: Reports: No Symptoms Cardiovascular: Reports: No Symptoms Endocrine: Reports: No Symptoms GI/Abdominal: Reports: No Symptoms : Reports: No Symptoms ED EXAM, UPPER BACK/NECK PAIN - Physical Exam Exam: See Below Exam Limited By: Uncooperative General Appearance: Alert, No Apparent Distress Head Exam: Atraumatic, Normocephalic Neck Exam: Non-Tender, Full Range of Motion, Normal Alignment, Normal Inspection Cardiovascular/Respiratory: Regular Rate, Rhythm, Normal Peripheral Pulses, No JVD, Normal Breath Sounds, No Respiratory Distress GI/Abdominal: Normal Bowel Sounds, Soft, Non-Tender Back Exam: Normal Inspection, Muscle Spasm. No: Vertebral Tenderness Extremities: Normal Inspection, Pedal Edema Neurologic: Normal Mood/Affect, Oriented x 3 Course - Vital Signs Last Recorded V/S: Last Vital Signs Temp 37.1 C 04/20/19 23:48 Pulse 81 04/20/19 23:48 Resp 16 04/20/19 23:48 BP 144/84 H 04/20/19 23:48 Pulse Ox 95 04/20/19 23:48 - Orders/Labs/Meds Meds: Medications Discontinued Medications Generic Name Dose Route Start Last Admin Trade Name Freq PRN Reason Stop Dose Admin Ketorolac Tromethamine 30 mg 04/21/19 00:33 04/21/19 00:41 Toradol IM 04/21/19 00:34 30 mg ONETIME ONE Administration - Re-Assessments/Exams Free Text/Narrative Re-Assessment/Exam: 04/21/19 02:02 Patient had some improvement with 30 mg IM Toradol. He will follow-up with his regular doctor as scheduled Departure - Departure Time of Disposition: 01:58 Disposition: Home, Self-Care 01 Clinical Impression: Back pain, Lumbar radiculopathy - Discharge Information Instructions: Opioid Use Disorder Referrals: Peng Norman Jr, MD [Primary Care Provider] - Forms: ED Department Discharge Additional Instructions: Return to the emergency room with any questions or problems or worsening symptoms. Follow-up with your regular doctor on Thursday as scheduled.
[2019-04-21] MEDS ORDERED: Ketorolac 30 MG/ML SDV IM ONE (00:33)
== END 2019-04-21 02:07 | disposition home or self-care (01) ==
LOC: JD.ED 23:41
DX: M54.16 Radiculopathy, lumbar region (principal); E78.00 Pure hypercholesterolemia, unspecified; I10 Essential (primary) hypertension; E11.42 Type 2 diabetes mellitus with diabetic polyneuropathy; Z88.8 Allergy status to other drugs, medicaments and biological substances; Z79.899 Other long term (current) drug therapy
CPT/HCPCS: 96372; 99283; J1885

== ENCOUNTER 2019-04-21 09:24 | Emergency (ER) | payer BC ==
[2019-04-21 09:33] VITALS: BP 147/90
[2019-04-21] MEDS ORDERED: Ketorolac 60 MG/2 ML SDV IM ONE (09:51)
[2019-04-21] MEDS ORDERED: Cyclobenzaprine 10 MG Tab PO ONE (09:51)
[2019-04-21] MEDS ORDERED: HYDROmorphone 1 MG/ML Syringe IM ONE (09:51)
--- NOTE | 2019-04-21 10:01 | EDM.PDOC ---
ED HPI GENERAL MEDICAL PROBLEM - General Chief Complaint: General Stated Complaint: HIP, LEG AND FEET PAIN Time Seen by Provider: 04/21/19 09:42 Source of Information: Reports: Patient History Limitations: Reports: No Limitations - History of Present Illness INITIAL COMMENTS - FREE TEXT/NARRATIVE: The patient presents with low back pain that radiates to his legs. He has a history of neck and upper back problems with surgery by Dr Mabry. He did nothing to hurt his back. He has no bowel or bladder problems. He has no numbness or weakness in his legs. He has never had an MRI of his low back. He is seeing Dr Norman on Thursday to get an MRI scheduled. He is also trying to get back in to see Dr Mabry. Onset: Gradual Duration: Day(s): Location: Reports: Back Quality: Reports: Sharp Severity: Severe Improves with: Reports: Immobilization Worsens with: Reports: Movement Associated Symptoms: Reports: No Other Symptoms Bilateral Lower Leg Pain Score (Numeric/FACES): 9 - Related Data Allergies Allergy/AdvReac Type Severity Reaction Status Date / Time aspirin Allergy Anxiety Verified 04/21/19 09:34 Home Meds: Home Meds glipiZIDE [Glucotrol] 10 mg PO BID 03/23/15 [History] Diltiazem [Tiazac] 360 mg PO DAILY 02/26/18 [History] Ramipril [Altace] 10 mg PO DAILY 02/26/18 [History] oxyCODONE HCl/Acetaminophen [Percocet 10-325 mg Tablet] 1 each PO Q6HR PRN #30 tablet 04/03/19 [Rx] Cyclobenzaprine [Flexeril] 10 mg PO TID PRN #20 tab 04/21/19 [Rx] oxyCODONE HCl/Acetaminophen [Percocet 5-325 mg Tablet] 1 - 2 each PO Q6HR PRN # 20 tablet 04/21/19 [Rx] Past Medical History Cardiovascular History: Reports: High Cholesterol, Hypertension Respiratory History: Reports: Pneumonia, Recurrent Musculoskeletal History: Reports: Neck Pain, Chronic, Osteoarthritis, Other ( See Below) Other Musculoskeletal History: neck surgery Neurological History: Reports: Neuropathy, Peripheral Psychiatric History: Reports: Anxiety Endocrine/Metabolic History: Reports: Diabetes, Type II - Past Surgical History HEENT Surgical History: Reports: Adenoidectomy, Tonsillectomy Neurological Surgical History: Reports: C-Spine Social & Family History - Family History Family Medical History: Noncontributory - Tobacco Use Smoking Status *Q: Never Smoker - Caffeine Use Caffeine Use: Reports: Coffee - Alcohol Use Days Per Week of Alcohol Use: 7 Number of Drinks Per Day: 5 Total Drinks Per Week: 35 - Recreational Drug Use Recreational Drug Use: No - Living Situation & Occupation Living situation: Reports: , with Spouse 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 GENERAL - Review of Systems Review Of Systems: See Below Constitutional: Reports: No Symptoms HEENT: Reports: No Symptoms Respiratory: Reports: No Symptoms Cardiovascular: Reports: No Symptoms Endocrine: Reports: No Symptoms GI/Abdominal: Reports: No Symptoms : Reports: No Symptoms Musculoskeletal: Reports: Back Pain ED EXAM, GENERAL - Physical Exam Exam: See Below Exam Limited By: No Limitations General Appearance: Alert, No Apparent Distress Ears: Normal External Exam Nose: Normal Inspection Head: Atraumatic, Normocephalic Neck: Normal Inspection Respiratory/Chest: No Respiratory Distress, Lungs Clear, Normal Breath Sounds Cardiovascular: Regular Rate, Rhythm, No Edema, No Murmur GI/Abdominal: Soft, Non-Tender, No Organomegaly, No Mass Back Exam: Other (Pain upon palpation to the lower back with more pain to the left back) Neurological: Alert, Oriented, No Motor/Sensory Deficits Course - Vital Signs Last Recorded V/S: Last Vital Signs Temp 98.0 F 04/21/19 09:30 Pulse 95 04/21/19 09:30 Resp 14 04/21/19 09:30 BP 147/90 H 04/21/19 09:30 Pulse Ox 97 04/21/19 09:30 - Orders/Labs/Meds Meds: Medications Discontinued Medications Generic Name Dose Route Start Last Admin Trade Name Freq PRN Reason Stop Dose Admin Cyclobenzaprine HCl 10 mg 04/21/19 09:51 04/21/19 10:05 Flexeril PO 04/21/19 09:52 10 mg ONETIME ONE Administration Hydromorphone HCl 1 mg 04/21/19 09:51 04/21/19 10:06 Dilaudid IM 04/21/19 09:52 1 mg ONETIME ONE Administration Ketorolac Tromethamine 60 mg 04/21/19 09:51 Toradol IM 04/21/19 09:52 ONETIME ONE - Re-Assessments/Exams Free Text/Narrative Re-Assessment/Exam: 04/21/19 10:05 I ordered dilaudid 1mg IM, toradol 30mg IM and flexeril 10mg by mouth. Departure - Departure Time of Disposition: 10:25 Disposition: Home, Self-Care 01 Condition: Good Clinical Impression: Low back pain Qualifiers: Chronicity: acute Back pain laterality: left Sciatica presence: with sciatica Sciatica laterality: sciatica of left side Qualified Code(s): M54.42 - Lumbago with sciatica, left side - Discharge Information *PRESCRIPTION DRUG MONITORING PROGRAM REVIEWED*: No *COPY OF PRESCRIPTION DRUG MONITORING REPORT IN PATIENT [place]: No Prescriptions: oxyCODONE HCl/Acetaminophen [Percocet 5-325 mg Tablet] 1 - 2 each PO Q6HR PRN # 20 tablet PRN Reason: Pain Cyclobenzaprine [Flexeril] 10 mg PO TID PRN #20 tab PRN Reason: Pain Referrals: Peng Norman Jr, MD [Primary Care Provider] - 1 Day Forms: ED Department Discharge Additional Instructions: Take the medicine as prescribed. Follow up with Dr Norman tomorrow and talk about getting an MRI and then follow up with Dr Mabry. Please return if you are worse.
== END 2019-04-21 10:25 | disposition home or self-care (01) ==
LOC: JD.ED 09:24
DX: M54.42 Lumbago with sciatica, left side (principal); E11.9 Type 2 diabetes mellitus without complications; E78.00 Pure hypercholesterolemia, unspecified; I10 Essential (primary) hypertension; Z88.8 Allergy status to other drugs, medicaments and biological substances; Z79.899 Other long term (current) drug therapy
CPT/HCPCS: 96372; 99283; A9270; J1170; J1885

== ENCOUNTER 2019-04-21 20:21 | Emergency (ER) | payer BC ==
[2019-04-21 20:48] VITALS: BP 183/95
--- NOTE | 2019-04-21 21:09 | EDM.PDOC ---
ED HPI GENERAL MEDICAL PROBLEM - General Chief Complaint: Genitourinary Problem Stated Complaint: UNABLE TO URINATE Time Seen by Provider: 04/21/19 21:08 - History of Present Illness INITIAL COMMENTS - FREE TEXT/NARRATIVE: 58-year-old male presents emergency room with bladder obstruction This started during the course of the day patient developed quite a bit of lower abdominal distention discomfort and has not been able to void. He has not had any fevers or chills she's never had an episode like this in the past. He's not had any nausea vomiting no constipation diarrhea. Lower Abdomen Pain Score (Numeric/FACES): 9 - Related Data Allergies Allergy/AdvReac Type Severity Reaction Status Date / Time aspirin Allergy Anxiety Verified 04/21/19 20:48 Home Meds: Home Meds glipiZIDE [Glucotrol] 10 mg PO BID 03/23/15 [History] Diltiazem [Tiazac] 360 mg PO DAILY 02/26/18 [History] Ramipril [Altace] 10 mg PO DAILY 02/26/18 [History] oxyCODONE HCl/Acetaminophen [Percocet 10-325 mg Tablet] 1 each PO Q6HR PRN #30 tablet 04/03/19 [Rx] Cyclobenzaprine [Flexeril] 10 mg PO TID PRN #20 tab 04/21/19 [Rx] Tamsulosin [Tamsulosin 24 Hr] 0.4 mg PO Q24H #15 cap.er 04/21/19 [Rx] oxyCODONE HCl/Acetaminophen [Percocet 5-325 mg Tablet] 1 - 2 each PO Q6HR PRN # 20 tablet 04/21/19 [Rx] Past Medical History Cardiovascular History: Reports: High Cholesterol, Hypertension Respiratory History: Reports: Pneumonia, Recurrent Musculoskeletal History: Reports: Neck Pain, Chronic, Osteoarthritis, Other ( See Below) Other Musculoskeletal History: neck surgery Neurological History: Reports: Neuropathy, Peripheral Psychiatric History: Reports: Anxiety Endocrine/Metabolic History: Reports: Diabetes, Type II - Past Surgical History HEENT Surgical History: Reports: Adenoidectomy, Tonsillectomy Neurological Surgical History: Reports: C-Spine Social & Family History - Family History Family Medical History: Noncontributory - Caffeine Use Caffeine Use: Reports: Coffee - Living Situation & Occupation Living situation: Reports: , with Spouse 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 Denies: Constipation, Diarrhea, Nausea, Vomiting : Reports: Urinary Retention. Denies: Flank Pain, Frequency ED EXAM, RENAL/ - Physical Exam Exam: See Below Exam Limited By: No Limitations General Appearance: Alert, No Apparent Distress Respiratory/Chest: No Respiratory Distress, Lungs Clear, Normal Breath Sounds Cardiovascular: Regular Rate, Rhythm, No Edema, No Murmur GI/Abdominal: Normal Bowel Sounds, Soft, Non-Tender, Other (Patient had a Barrios placed in an almost 2100 mL out by the time I saw him felt much better) Course - Vital Signs Last Recorded V/S: Last Vital Signs Temp 36.2 C 04/21/19 20:44 Pulse 86 04/21/19 20:44 Resp 18 04/21/19 20:44 BP 183/95 H 04/21/19 20:44 Pulse Ox 98 04/21/19 20:44 - Orders/Labs/Meds Labs: Laboratory Tests 04/21/19 Range/Units 21:30 Urine Color Yellow (Yellow) Urine Appearance Clear (Clear) Urine pH 6.5 (5.0-8.0) Ur Specific [place] 1.015 (1.005-1.030) Urine Protein 1+ H (Negative) Urine Glucose (UA) Negative (Negative) Urine Ketones Negative (Negative) Urine Occult Blood 1+ H (Negative) Urine Nitrite Negative (Negative) Urine Bilirubin Negative (Negative) Urine Urobilinogen 0.2 (0.2-1.0) Ur Leukocyte Esterase Negative (Negative) Urine RBC 0-5 (0-5) /hpf Urine WBC 0-5 (0-5) /hpf Ur Squamous Epith Cells 0-5 (0-5) /hpf Urine Bacteria Rare (FEW) /hpf Hyaline Casts 0-5 (0-5) /lpf Urine Mucus Rare (FEW) /hpf - Re-Assessments/Exams Free Text/Narrative Re-Assessment/Exam: 04/21/19 23:41 Significant urinary retention patient felt much better after placement of catheter however patient demanded that the Barrios be taken out I informed him in no uncertain terms he may be back later this evening for another one he is willing to take that risk he is given a Flomax before his discharge and I will discharge him with some Flomax. He has an appointment to see his regular doctor tomorrow Departure - Departure Time of Disposition: 23:42 Disposition: Home, Self-Care 01 Clinical Impression: Urinary retention - Discharge Information Prescriptions: Tamsulosin [Tamsulosin 24 Hr] 0.4 mg PO Q24H #15 cap.er Referrals: Peng Norman Jr, MD [Primary Care Provider] - Forms: ED Department Discharge Additional Instructions: Return to emergency room if any questions or problems. Take the Flomax 1 daily. Follow-up with your doctor tomorrow as scheduled
[2019-04-21] MEDS ORDERED: Tamsulosin 0.4 MG Cap.ER PO ONE (23:50)
== END 2019-04-21 23:55 | disposition home or self-care (01) ==
LOC: JD.ED 20:21
DX: R33.9 Retention of urine, unspecified (principal); I10 Essential (primary) hypertension; E11.9 Type 2 diabetes mellitus without complications; M19.90 Unspecified osteoarthritis, unspecified site; Z98.890 Other specified postprocedural states; Z87.01 Personal history of pneumonia (recurrent); Z79.899 Other long term (current) drug therapy; Z88.6 Allergy status to analgesic agent
CPT/HCPCS: 51702; 51798; 81001; 99283; A9270

== ENCOUNTER 2019-04-25 22:11 | Emergency (ER) | payer BC ==
[2019-04-25 22:23] VITALS: BP 139/78
--- NOTE | 2019-04-25 23:18 | EDM.PDOC ---
ED HPI GENERAL MEDICAL PROBLEM - General Chief Complaint: Genitourinary Problem Stated Complaint: LOWER ABDOMINAL PAIN POSSIBLE BLADDER INFECTION Time Seen by Provider: 04/25/19 22:29 Source of Information: Reports: Patient, Family (), RN Notes Reviewed History Limitations: Reports: No Limitations - History of Present Illness INITIAL COMMENTS - FREE TEXT/NARRATIVE: Medical records indicate that the patient was seen in this ED on , 2018, for bladder obstruction. He had no prior history of bladder obstruction. He was catheterized, and a recommendation was made that the catheter be left in place for a few days, but the patient insisted that it be removed, being made aware that it may result in his having to return to the ED due to re- obstruction. He was prescribed Flomax, and instructed to follow-up with his PCP on 04/22/2019. The patient now returns to the ED stating that he has had dysuria and suprapubic pain today. No recent fever or back pain. He states that his symptoms are similar to prior urinary tract infections. The patient states that he typically has no difficulty urinating in the morning , but that as the day goes on, he finds it more and more difficult to initiate a stream, and that by the evening, he is virtually unable to urinate. He states that he saw his PCP on 04/22/2019, and that he was referred to a Urologist, but that he has not heard back from the Urologist's office. He does not recall the name of the Urologist. The patient states that he has been taking his Flomax once a day, as prescribed. He denies recent use of antihistamines or cold medications. The patient's PCP is Dr. Peng Norman. His Spinal Surgeon is Dr. Norm Burdick. His Neurology mid level is Tali Sequeira NP. Lower Abdomen Pain Score (Numeric/FACES): 8 - Related Data Allergies Allergy/AdvReac Type Severity Reaction Status Date / Time aspirin Allergy Anxiety Verified 04/25/19 22:23 Home Meds: Home Meds glipiZIDE [Glucotrol] 10 mg PO BID 03/23/15 [History] Diltiazem [Tiazac] 360 mg PO DAILY 02/26/18 [History] Ramipril [Altace] 10 mg PO DAILY 02/26/18 [History] Tamsulosin [Tamsulosin 24 Hr] 0.4 mg PO Q24H #15 cap.er 04/21/19 [Rx] oxyCODONE HCl/Acetaminophen [Percocet 5-325 mg Tablet] 1 - 2 each PO Q6HR PRN # 20 tablet 04/21/19 [Rx] Januvia. 1 tab PO DAILY 04/25/19 [History] Past Medical History Cardiovascular History: Reports: High Cholesterol (untreated), Hypertension Genitourinary History: Reports: BPH Musculoskeletal History: Reports: Neck Pain, Chronic, Osteoarthritis Neurological History: Reports: Neuropathy, Peripheral Psychiatric History: Reports: Anxiety (untreated) Endocrine/Metabolic History: Reports: Diabetes, Type II - Past Surgical History HEENT Surgical History: Reports: Adenoidectomy, Tonsillectomy Neurological Surgical History: Reports: C-Spine (ACDF January 2018) Social & Family History - Family History Family Medical History: Noncontributory - Tobacco Use Smoking Status *Q: Never Smoker - Caffeine Use Caffeine Use: Reports: None - Alcohol Use Alcohol Use History: Yes Days Per Week of Alcohol Use: 7 Number of Drinks Per Day: 10 Total Drinks Per Week: 70 Alcohol Use Frequency: Daily (Alcoholic) - Recreational Drug Use Recreational Drug Use: No - Living Situation & Occupation Living situation: Reports: , with Spouse 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 ED EXAM, RENAL/ - Physical Exam Exam: See Below Exam Limited By: No Limitations General Appearance: Alert, WD/WN, No Apparent Distress Eye Exam: Bilateral Eye: EOMI, Normal Inspection Ears: Normal External Exam, Hearing Grossly Normal Nose: Normal Inspection Throat/Mouth: Normal Inspection, Normal Lips, Normal Voice, No Airway Compromise Head: Atraumatic, Normocephalic Neck: Normal Inspection, Full Range of Motion Respiratory/Chest: No Respiratory Distress, Lungs Clear, Normal Breath Sounds, No Accessory Muscle Use Cardiovascular: Normal Peripheral Pulses, Regular Rate, Rhythm, No Edema, No Gallop, No JVD, No Murmur, No Rub GI/Abdominal: Normal Bowel Sounds, Soft, No Organomegaly, No Distention, No Abnormal Bruit, No Mass, Tender (Suprapubically only. Nontender elsewhere.), Other (Male) Exam: Deferred Rectal (Males) Exam: Deferred Back Exam: Normal Inspection, Full Range of Motion. No: CVA Tenderness (L), CVA Tenderness (R) Extremities: Normal Inspection, Normal Range of Motion, No Pedal Edema, Normal Capillary Refill Neurological: Alert, Oriented, Normal Cognition, No Motor/Sensory Deficits Psychiatric: Normal Affect Skin Exam: Warm, Dry, Intact, Normal Color, No Rash Course - Vital Signs Last Recorded V/S: Last Vital Signs Temp 36.4 C 04/25/19 22:20 Pulse 85 04/25/19 22:20 Resp 16 04/25/19 22:20 BP 139/78 04/25/19 22:20 Pulse Ox 97 04/25/19 22:20 - Orders/Labs/Meds Labs: Laboratory Tests 04/25/19 Range/Units 22:38 Urine Color Light yellow (Yellow) Urine Appearance Clear (Clear) Urine pH 6.5 (5.0-8.0) Ur Specific [place] 1.010 (1.005-1.030) Urine Protein Negative (Negative) Urine Glucose (UA) Negative (Negative) Urine Ketones Negative (Negative) Urine Occult Blood Trace-lysed H (Negative) Urine Nitrite Negative (Negative) Urine Bilirubin Negative (Negative) Urine Urobilinogen 0.2 (0.2-1.0) Ur Leukocyte Esterase 1+ H (Negative) Urine RBC Not seen (0-5) /hpf Urine WBC 0-5 (0-5) /hpf Ur Squamous Epith Cells 0-5 (0-5) /hpf Urine Bacteria Rare (FEW) /hpf Urine Mucus Not seen (FEW) /hpf - Re-Assessments/Exams Free Text/Narrative Re-Assessment/Exam: 04/25/19 23:17 The urinalysis results are still pending, however, his postvoid bladder scan found only 50 mL of urine. If the urinalysis finds a UTI, then that would explain his symptoms, however, if it is negative, I am not certain what the cause of his dysuria and suprapubic pain is. His symptoms are not consistent with acute bacterial prostatitis, as he does not appear to be acutely ill, he has not had a fever or chills, myalgias, or cloudy urine. 04/26/19 00:09 The patient's urinalysis is normal. The patient stated that he is able to urinate in the middle the night, but that over the course of the day, he has progressively worsening urinary retention, only to be relieved again the following night. Perhaps the patient's pain is due to bladder spasm, however, I cannot prove that from the ED. I suggested that he might try a few doses of over -the-counter Azo, to see if that helps with his symptoms. He should continue to take tamsulosin, and I will refer him to a Urologist in [place], for definitive evaluation and treatment. Departure - Departure Time of Disposition: 00:10 Disposition: Home, Self-Care 01 Condition: Good Clinical Impression: Bladder spasms, Dysuria - Discharge Information *PRESCRIPTION DRUG MONITORING PROGRAM REVIEWED*: Not Applicable *COPY OF PRESCRIPTION DRUG MONITORING REPORT IN PATIENT [place]: Not Applicable Instructions: Dysuria Referrals: Kar Guerrero MD [Ordering Only Provider] - Peng Norman Jr, MD [Primary Care Provider] - Norm Burdick MD [Ordering Only Provider] - Tali Sequeira NP [Ordering Only Provider] - Forms: ED Department Discharge Additional Instructions: You were seen in the emergency room for painful urination and lower central abdominal pain today. Workup in the ER included a urinalysis, followed by a post-void bladder scan. Your urinalysis returned normal. You do not have a urinary tract infection. Your postvoid bladder scan found only 50 mL of urine, which is not significantly elevated. The cause of your symptoms is not clear, but may be related to intermittent urinary retention and bladder spasms. We recommend that you continue to take the tamsulosin (Flomax) that you were previously prescribed. We recommend that you try taking [id number] Azo, either 2 tablets a day for 3 days or 3 tablets a day for 2 days. We recommend that you not exceed a total of 6 doses. Azo will turn your urine orange, which is normal. Follow-up with either the Urologist that you were referred to by Dr. Norman, or Dr. Kar Guerrero, in [place], at the next available appointment, for definitive evaluation. If any other problems, please do not hesitate to return to the ER.
== END 2019-04-26 00:24 | disposition home or self-care (01) ==
LOC: JD.ED 22:11
DX: N32.89 Other specified disorders of bladder (principal); R30.0 Dysuria; I10 Essential (primary) hypertension; E11.42 Type 2 diabetes mellitus with diabetic polyneuropathy; F41.9 Anxiety disorder, unspecified; E78.00 Pure hypercholesterolemia, unspecified; Z79.84 Long term (current) use of oral hypoglycemic drugs; Z79.899 Other long term (current) drug therapy; Z88.6 Allergy status to analgesic agent
CPT/HCPCS: 51798; 81001; 99282; 99283

== ENCOUNTER 2019-04-28 19:15 | Emergency (ER) | payer BC ==
[2019-04-28 19:28] VITALS: BP 138/83
--- NOTE | 2019-04-28 19:40 | EDM.PDOC ---
ED HPI GENERAL MEDICAL PROBLEM - General Chief Complaint: General Stated Complaint: LOWER ABDOMINAL PAIN AND POSSIBLE KIDNEY STONE Time Seen by Provider: 04/28/19 19:39 Source of Information: Reports: Patient History Limitations: Reports: No Limitations - History of Present Illness INITIAL COMMENTS - FREE TEXT/NARRATIVE: Patient is a 58-year-old male who presents ED complaining of lower abdominal pain, generalized pain to his legs/ arms/neck. Patient states he has a history of arthritis and history of cervical spinal fusion. He has been on chronic narcotic pain medications for quite some time. He normally takes Percocet [id number] 4 times a day. He took his last pill this afternoon at 1400 hrs. and since then has developed pain to these areas with arthritis. In addition he has a history of urine retention. He has been evaluated by a ER provider here approximately 3 days ago with UA obtained that was negative for infection. Patient refuses to have a Barrios catheter placed. He has appointment with urology for May 03. He also has a appointment with his PCP for tomorrow morning at 8:30 to get refill of his pain medications. All the pain he is currently experiencing is chronic unchanged. He believes he cannot urinate secondary to his worsening pain. He does admit to being a alcoholic and drinks approximately 10 shots of alcohol daily for the past 10 years. When able to urinate he does no dysuria. He states the discomfort to the abdomen comes and goes. With the Flomax the ability to urinate has improved drastically. Patient has been eating well. There is been no bloody stools, dark tarry stools, constipation, nausea or vomiting, fever, chest pain, shortness of breath, scrotal pain, perineal pain , and/or any additional complaints. He is requesting a oral pain medication to help alleviate his discomfort so that he may be able to urinate with no issues. In addition patient is a type II diabetic and takes Januvia and glipizide. Patient states he has been waking up in the middle of night experiencing hypoglycemic events. He wakes up in a cold sweat with blood sugars in the 50s. He has been in contact with his PCPs nurse with no changes to current medication regimen. Again the patient states he has been eating well. Abdomen Pain Score (Numeric/FACES): 8 - Related Data Allergies Allergy/AdvReac Type Severity Reaction Status Date / Time aspirin Allergy Anxiety Verified 04/28/19 19:28 Home Meds: Home Meds Diltiazem [Tiazac] 360 mg PO DAILY 02/26/18 [History] Ramipril [Altace] 10 mg PO DAILY 02/26/18 [History] Tamsulosin [Tamsulosin 24 Hr] 0.4 mg PO Q24H #15 cap.er 04/21/19 [Rx] oxyCODONE HCl/Acetaminophen [Percocet 5-325 mg Tablet] 1 - 2 each PO Q6HR PRN # 20 tablet 04/21/19 [Rx] Past Medical History Cardiovascular History: Reports: High Cholesterol, Hypertension Respiratory History: Reports: Pneumonia, Recurrent Genitourinary History: Reports: BPH Musculoskeletal History: Reports: Neck Pain, Chronic, Osteoarthritis Other Musculoskeletal History: neck surgery Neurological History: Reports: Neuropathy, Peripheral Psychiatric History: Reports: Anxiety, Depression Endocrine/Metabolic History: Reports: Diabetes, Type II - Past Surgical History HEENT Surgical History: Reports: Adenoidectomy, Tonsillectomy Neurological Surgical History: Reports: C-Spine Social & Family History - Family History Family Medical History: Noncontributory - Tobacco Use Smoking Status *Q: Current Every Day Smoker Years of Tobacco use: 30 Packs/Tins Daily: 0.3 - Caffeine Use Caffeine Use: Reports: Soda - Recreational Drug Use Recreational Drug Use: No - Living Situation & Occupation Living situation: Reports: , with Spouse 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 ED EXAM, GENERAL - Physical Exam Exam: See Below Exam Limited By: Intoxication General Appearance: Alert, WD/WN, No Apparent Distress Eye Exam: Bilateral Eye: Normal Inspection, PERRL Ears: Hearing Grossly Normal Nose: Normal Inspection Throat/Mouth: Normal Voice, No Airway Compromise Head: Atraumatic, Normocephalic Neck: Normal Inspection, Supple Respiratory/Chest: No Respiratory Distress, Lungs Clear, Normal Breath Sounds, No Accessory Muscle Use, Chest Non-Tender Cardiovascular: Normal Peripheral Pulses, Regular Rate, Rhythm, No Murmur Peripheral Pulses: 2+: Radial (L) GI/Abdominal: Normal Bowel Sounds, Soft, No Organomegaly, Distended (minimal distention to the suprapubic region along the bladder with some pain present. ) Back Exam: Normal Inspection. No: CVA Tenderness (L), CVA Tenderness (R) Extremities: Normal Inspection, Normal Range of Motion, Non-Tender, No Pedal Edema Neurological: Alert, Oriented, CN II-XII Intact, Normal Cognition, Normal Gait Psychiatric: Normal Affect, Normal Mood Course - Vital Signs Last Recorded V/S: Last Vital Signs Temp 97.1 F 04/28/19 19:22 Pulse 77 04/28/19 19:22 Resp 16 04/28/19 19:22 BP 138/83 04/28/19 19:22 Pulse Ox 97 04/28/19 19:22 - Orders/Labs/Meds Orders: Active Orders 24 hr Category Date Time Status Blood Glucose Check, Bedside [RC] ONETIME Care 04/28/19 20:12 Active Abdomen 2V AP Flat Upright [CR] Stat Exams 04/28/19 20:21 Taken UA W/MICROSCOPIC [URIN] Stat Lab 04/28/19 20:20 Ordered Labs: Laboratory Tests 04/28/19 04/28/19 04/28/19 Range/Units 20:17 20:40 20:40 WBC 5.09 (4.23-9.07) K/mm3 RBC 4.33 L (4.63-6.08) M/mm3 Hgb 14.4 (13.7-17.5) gm/L Hct 41.7 (40.1-51.0) % MCV 96.3 H (79.0-92.2) fl MCH 33.3 H (25.7-32.2) pg MCHC 34.5 (32.2-35.5) g/dl RDW Std Deviation 41.5 (35.1-43.9) fL Plt Count 206 (163-337) K/mm3 MPV 9.2 L (9.4-12.3) fl Neutrophils % (Manual) 70 H (40-60) % Band Neutrophils % 0 (0-10) % Lymphocytes % (Manual) 23 (20-40) % Atypical Lymphs % 0 % Monocytes % (Manual) 6 (2-10) % Eosinophils % (Manual) 1 (0.8-7.0) % Basophils % (Manual) 0 L (0.2-1.2) Platelet Estimate Adequate RBC Morph Comment Normal Sodium 138 (136-145) mEq/L Potassium 4.0 (3.5-5.1) mEq/L Chloride 101 (98-107) mEq/L Carbon Dioxide 30 (21-32) mEq/L Anion Gap 11.0 (5-15) BUN 9 (7-18) mg/dL Creatinine 0.8 (0.7-1.3) mg/dL Est Cr Clr Drug Dosing 115.13 mL/min Estimated GFR (MDRD) > 60 (>60) mL/min BUN/Creatinine Ratio 11.3 L (14-18) Glucose 130 H (74-106) mg/dL POC Glucose 56 L (70-105) mg/dL Calcium 8.7 (8.5-10.1) mg/dL Magnesium 2.0 (1.8-2.4) mg/dl Total Bilirubin 0.3 (0.2-1.0) mg/dL AST 42 H (15-37) U/L ALT 68 H (16-63) U/L Alkaline Phosphatase 57 (46-116) U/L C-Reactive Protein < 0.2 (<1.0) mg/dL Total Protein 6.8 (6.4-8.2) g/dl Albumin 4.0 (3.4-5.0) g/dl Globulin 2.8 gm/dL Albumin/Globulin Ratio 1.4 (1-2) Ethyl Alcohol 0.22 (0.00) gm% Meds: Medications Discontinued Medications Generic Name Dose Route Start Last Admin Trade Name Freq PRN Reason Stop Dose Admin Oxycodone/Acetaminophen 2 tab 04/28/19 20:03 04/28/19 20:22 Percocet 325-5 Mg PO 04/28/19 20:04 2 tab ONETIME ONE Administration Oxycodone/Acetaminophen 2 tab 04/28/19 21:35 04/28/19 21:46 Percocet 325-5 Mg PO 04/28/19 21:36 2 tab ONETIME ONE Administration - Re-Assessments/Exams Free Text/Narrative Re-Assessment/Exam: On exam patient is intoxicated. On exam of his abdomen there is some slight discomfort along the suprapubic region. Pain is constant and unchanged from previous episodes. Similar to previous episode with being evaluated in the emergency department 3 days ago. He is adamant about not having a catheter placed. Otherwise on exam there is no other concerning findings. Bladder scan indicated 250 mL. Patient has been unable to urinate 2. States his generalized pain is causing the issue. Percocet 5x325 x2 tabs have been ordered. 2019 Patient returned from the bathroom complaining of low blood sugar. Rapid bedside glucose was obtained and it was 56. Patient is eating and drinking juice at this time. I will go ahead and obtain some basic labs and studies including: CBC, chem 14, CRP, magnesium, UA with micro, serum EtOH, and abdomen two-view. 04/28/19 21:13 X-ray of the abdomen revealed nonspecific air in stool patterns. No acute findings. Final interpretation is pending. Reviewed with Dr. Laureano. Labs reviewed: CMP essentially normal. Blood glucose 1:30. Magnesium 2.0. LFTs are elevated at 42 and 68. CRP normal. CBC White blood cell count 5.09, hemoglobin 14.4, platelet count 206. Serum EtOH 0.22. 2119 reassessment, patient resting comfortably along the bedside with no complaints at this time. He does not have the sensation he needs to urinate. States he has urinated 5 times today with no issues. Strong stream present. He does not feel the urge to urinate at this time. I will discharge the patient home with 2x 5-325 Percocet tabs. I will not provide a prescription for the Percocet 10-325 mg tabs. He has an appointment with his PCP tomorrow morning for this. Return precautions were discussed with the patient. Patient had no further questions or concerns. He agreed with plan. Patient voiced understanding of the return precautions. Departure - Departure Time of Disposition: 21:22 Disposition: Home, Self-Care 01 Condition: Good Clinical Impression: Lower abdominal pain of unknown etiology, Alcohol abuse with intoxication, Hypoglycemia due to type 2 diabetes mellitus Opioid dependence Qualifiers: Substance use status: with unspecified opioid-induced disorder Qualified Code(s ): F11.29 - Opioid dependence with unspecified opioid-induced disorder - Discharge Information Instructions: Alcohol Use Disorder, Chemical Dependency, Alcohol Intoxication, Opioid Pain Medicine Information, Alcohol Abuse and Nutrition, Finding Treatment for Addiction Referrals: Peng Norman Jr, MD [Primary Care Provider] - Forms: ED Department Discharge Additional Instructions: Do not take any of your oral diabetic medications this evening or tomorrow morning until you speak with your PCP. I would recommend discontinuing the glipizide since this is a common medication that causes hypoglycemia. This evening prior to going to bed please ensure that you have eaten food that is high in protein. Please check your blood sugars prior to going to bed as well. If low continue to eat and check blood sugars until it raises to exceptable level. Stop consuming alcohol. Take the Percocet 5-325, 2 tabs this evening as needed. For further pain management see your PCP tomorrow morning at 8:30 as scheduled. Please return to the ED if you experience any new or worsening symptoms. - My Orders Last 24 Hours: My Active Orders 04/28/19 20:12 Blood Glucose Check, Bedside [RC] ONETIME 04/28/19 20:20 UA W/MICROSCOPIC [URIN] Stat 04/28/19 20:21 Abdomen 2V AP Flat Upright [CR] Stat - Assessment/Plan Last 24 Hours: My Active Orders 04/28/19 20:12 Blood Glucose Check, Bedside [RC] ONETIME 04/28/19 20:20 UA W/MICROSCOPIC [URIN] Stat 04/28/19 20:21 Abdomen 2V AP Flat Upright [CR] Stat
[2019-04-28] MEDS ORDERED: Acetaminophen/oxyCODONE 325-5 MG Tab PO ONE ×2 (20:03→21:35)
--- NOTE | 2019-04-29 07:18 | CR ---
Abdomen: Supine and upright views the abdomen were obtained. Comparison: No prior abdominal imaging is available. Mild degenerative change is seen within the left hip. Degenerative endplate spurring is noted throughout the spine. No free air is seen. Bowel gas pattern appears within normal limits. Mild vascular calcification is seen. Impression: 1. Findings as noted above. Nothing acute is appreciated on two-view abdominal x-ray. Diagnostic code #2
== END 2019-04-28 21:45 | disposition home or self-care (01) ==
LOC: JD.ED 19:15
DX: R10.30 Lower abdominal pain, unspecified (principal); F10.129 Alcohol abuse with intoxication, unspecified; Y90.7 Blood alcohol level of 200-239 mg/100 ml; E11.649 Type 2 diabetes mellitus with hypoglycemia without coma; F11.29 Opioid dependence with unspecified opioid-induced disorder; E78.00 Pure hypercholesterolemia, unspecified; I10 Essential (primary) hypertension; F41.9 Anxiety disorder, unspecified; F32.9 Major depressive disorder, single episode, unspecified; F17.210 Nicotine dependence, cigarettes, uncomplicated; Z88.6 Allergy status to analgesic agent; Z79.899 Other long term (current) drug therapy; Z79.82 Long term (current) use of aspirin
CPT/HCPCS: 36415; 51798; 74019; 80053; 82962; 83735; 85007; 85027; 86140; 99284; A9270; G0480; 99283

== ENCOUNTER 2019-07-03 13:17 | Emergency (ER) | payer BC, OTHER ==
[2019-07-03 13:33] VITALS: BP 137/95
--- NOTE | 2019-07-03 14:37 | EDM.PDOC ---
ED HPI GENERAL MEDICAL PROBLEM - General Chief Complaint: General Stated Complaint: OUT OF MEDS Time Seen by Provider: 07/03/19 13:52 Source of Information: Reports: Patient History Limitations: Reports: No Limitations - History of Present Illness INITIAL COMMENTS - FREE TEXT/NARRATIVE: Patient is a 58-year-old male who presents to the ED requesting a prescription for his glipizide. Patient states he has not taking his glipizide for the past 2 days and notes his blood sugars have been elevated. States his blood sugar today was 237. Has been eating and drinking okay. Denies any increased frequency to urination. He has to self catheter. Straw-colored urine noted. No polydipsia, fever, cough, short of breath, abdominal pain, nausea or vomiting noted. He recently changed his insurance and thus issue is a prescription currently will cost him $200. He states with his new insurance that should be different. He is requesting enough medication to get through Thursday. - Related Data Allergies Allergy/AdvReac Type Severity Reaction Status Date / Time aspirin Allergy Anxiety Verified 07/03/19 13:29 Home Meds: Home Meds Diltiazem [Tiazac] 360 mg PO DAILY 02/26/18 [History] Ramipril [Altace] 10 mg PO DAILY 02/26/18 [History] Tamsulosin [Flomax] 0.4 mg PO Q24H #15 cap.er 04/21/19 [Rx] Polyethylene Glycol 3350 [MiraLAX] 17 gm PO DAILY #1 cont 05/24/19 [Rx] oxyCODONE HCl/Acetaminophen [Percocet 10-325 mg Tablet] 1 each PO Q4H PRN #24 tablet 05/24/19 [Rx] Ondansetron [Zofran ODT] 4 mg PO Q6H PRN #20 tab.dis 06/19/19 [Rx] glipiZIDE [Glucotrol] 10 mg PO BID #60 tablet 07/03/19 [Rx] Past Medical History Cardiovascular History: Reports: High Cholesterol, Hypertension Respiratory History: Reports: Pneumonia, Recurrent Gastrointestinal History: Reports: Chronic Constipation Genitourinary History: Reports: BPH, Other (See Below) Other Genitourinary History: pt self caths for bladder issues and prostate Musculoskeletal History: Reports: Neck Pain, Chronic, Osteoarthritis Other Musculoskeletal History: neck surgery Neurological History: Reports: Neuropathy, Peripheral Psychiatric History: Reports: Anxiety, Depression Endocrine/Metabolic History: Reports: Diabetes, Type II - Infectious Disease History Infectious Disease History: Reports: Chicken Pox, Measles, Mumps - Past Surgical History HEENT Surgical History: Reports: Adenoidectomy, Tonsillectomy Neurological Surgical History: Reports: C-Spine Social & Family History - Family History Family Medical History: Noncontributory - Tobacco Use Smoking Status *Q: Never Smoker - Caffeine Use Caffeine Use: Reports: Coffee - Recreational Drug Use Recreational Drug Use: No - Living Situation & Occupation Living situation: Reports: , with Spouse Occupation: Employed ([employer]) ED ROS GENERAL - Review of Systems Review Of Systems: See Below Constitutional: Denies: Fever, Chills, Malaise, Weakness, Decreased Appetite HEENT: Reports: No Symptoms Respiratory: Reports: No Symptoms Cardiovascular: Reports: No Symptoms GI/Abdominal: Reports: No Symptoms : Reports: No Symptoms Neurological: Reports: No Symptoms ED EXAM, GENERAL - Physical Exam Exam: See Below Exam Limited By: No Limitations General Appearance: Alert, WD/WN, No Apparent Distress Ears: Hearing Grossly Normal Nose: Normal Inspection Throat/Mouth: Normal Inspection, Normal Oropharynx, Normal Voice, No Airway Compromise Head: Atraumatic, Normocephalic, Other Neck: Normal Inspection, Supple Respiratory/Chest: No Respiratory Distress, Lungs Clear, Normal Breath Sounds, No Accessory Muscle Use Cardiovascular: Normal Peripheral Pulses, Regular Rate, Rhythm, No Murmur Peripheral Pulses: 2+: Radial (R) GI/Abdominal: Normal Bowel Sounds, Soft, Non-Tender, No Organomegaly, No Distention Extremities: Normal Inspection Neurological: Alert, Oriented, CN II-XII Intact, Normal Cognition, No Motor/ Sensory Deficits Psychiatric: Normal Affect, Normal Mood Course - Vital Signs Last Recorded V/S: Last Vital Signs Temp 98.5 F 07/03/19 13:29 Pulse 95 07/03/19 13:29 Resp 17 07/03/19 13:29 BP 137/95 H 07/03/19 13:29 Pulse Ox 95 07/03/19 13:29 - Re-Assessments/Exams Free Text/Narrative Re-Assessment/Exam: I have provided a coupon for RX with prescription for the glipizide. He will be able to purchase sixty-10 mg tabs of the glipizide for $7.15. Patient takes 10mgs twice a day. He was encouraged to follow-up with his PCP this week for prescriptions if needed. In addition return precautions discussed with the patient. He had no further questions or concerns and agreed with plan. Departure - Departure Time of Disposition: 14:36 Disposition: Home, Self-Care 01 Condition: Good Clinical Impression: Encounter for medication refill - Discharge Information Prescriptions: glipiZIDE [Glucotrol] 10 mg PO BID #60 tablet Instructions: Medicine Refill at the Emergency Department Referrals: Peng Norman Jr, MD [Primary Care Provider] - Forms: ED Department Discharge Additional Instructions: Take the glipizide as previously prescribed 10 mg one tab twice a day. Check her blood sugars twice a day keep any log. Provide the log to your PCP on reevaluation in the next week. Return to the ED if you develop any new or worsening symptoms.
== END 2019-07-03 14:58 | disposition home or self-care (01) ==
LOC: JD.ED 13:17
DX: I10 Essential (primary) hypertension (principal); E11.40 Type 2 diabetes mellitus with diabetic neuropathy, unspecified; M19.90 Unspecified osteoarthritis, unspecified site; Z88.6 Allergy status to analgesic agent; Z79.899 Other long term (current) drug therapy; Z98.890 Other specified postprocedural states
CPT/HCPCS: 99281

== ENCOUNTER 2019-08-19 16:37 | Emergency (ER) | payer OTHER ==
[2019-08-19 17:00] VITALS: BP 97/71; PULSE 88
== END 2019-08-19 17:40 | disposition home or self-care (01) ==
LOC: JD.ED 16:37
DX: Z53.21 Procedure and treatment not carried out due to patient leaving prior to being seen by health care provider (principal)

== ENCOUNTER 2019-10-16 18:57 | Emergency (ER) | payer BC, OTHER ==
[2019-10-16 19:06] VITALS: BP 137/92; PULSE 86
[2019-10-16] MEDS ORDERED: Promethazine 25 MG/ML SDV IM ONE (19:07)
[2019-10-16] MEDS ORDERED: Morphine 4 MG/ML Syringe IM ONE (19:07)
--- NOTE | 2019-10-16 19:12 | EDM.PDOC ---
ED HPI GENERAL MEDICAL PROBLEM - General Chief Complaint: General Stated Complaint: PAIN ALL OVER Time Seen by Provider: 10/16/19 19:04 Source of Information: Reports: Patient History Limitations: Reports: No Limitations - History of Present Illness INITIAL COMMENTS - FREE TEXT/NARRATIVE: Patient's unfortunate 59-year-old male who presents emergency Department they reports he is out of his oxycodone. Patient reports that he's been out since yesterday. Patient reports that he has chronic neck pain and he has radiculopathy which radiates to bilateral hands of burning tingling type pain is consistent with his chronic pain. Patient reports he would like his oxycodone refilled Generalized Pain Score (Numeric/FACES): 8 - Related Data Allergies Allergy/AdvReac Type Severity Reaction Status Date / Time aspirin Allergy Anxiety Verified 10/16/19 19:06 Home Meds: Home Meds Diltiazem [Tiazac] 360 mg PO DAILY 02/26/18 [History] Ramipril [Altace] 10 mg PO DAILY 02/26/18 [History] Tamsulosin [Flomax] 0.4 mg PO Q24H #15 cap.er 04/21/19 [Rx] oxyCODONE HCl/Acetaminophen [Percocet 10-325 mg Tablet] 1 each PO Q4H PRN #24 tablet 05/24/19 [Rx] Ondansetron [Zofran ODT] 4 mg PO Q6H PRN #20 tab.dis 06/19/19 [Rx] glipiZIDE [Glucotrol] 10 mg PO BID #60 tablet 07/03/19 [Rx] Past Medical History Cardiovascular History: Reports: High Cholesterol, Hypertension Respiratory History: Reports: Pneumonia, Recurrent Gastrointestinal History: Reports: Chronic Constipation Genitourinary History: Reports: BPH Other Genitourinary History: pt self caths for bladder issues and prostate Musculoskeletal History: Reports: Neck Pain, Chronic, Osteoarthritis Other Musculoskeletal History: neck surgery Neurological History: Reports: Neuropathy, Peripheral Psychiatric History: Reports: Anxiety Endocrine/Metabolic History: Reports: Diabetes, Type II - Infectious Disease History Infectious Disease History: Reports: Chicken Pox, Measles, Mumps - Past Surgical History HEENT Surgical History: Reports: Adenoidectomy, Tonsillectomy Neurological Surgical History: Reports: C-Spine Social & Family History - Family History Family Medical History: Noncontributory - Caffeine Use Caffeine Use: Reports: Coffee, Soda - Living Situation & Occupation Living situation: Reports: , with Spouse 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 GENERAL - Review of Systems Review Of Systems: See Below Constitutional: Denies: Fever, Chills Free Text/Narrative/Comment: Positive neck pain ED EXAM, GENERAL - Physical Exam Exam: See Below Exam Limited By: No Limitations General Appearance: Alert, WD/WN, Mild Distress Ears: Normal External Exam, Normal Canal, Hearing Grossly Normal, Normal TMs Nose: Normal Inspection, Normal Mucosa, No Blood Throat/Mouth: Normal Inspection, Normal Lips, Normal Teeth, Normal Gums, Normal Oropharynx, Normal Voice, No Airway Compromise Neck: Other (Tenderness to paraspinous muscles bilaterally C2-C7 and radiates to his lats bilaterally) Respiratory/Chest: No Respiratory Distress Cardiovascular: Normal Peripheral Pulses, Regular Rate, Rhythm, No Edema, No Gallop, No JVD, No Murmur, No Rub GI/Abdominal: Normal Bowel Sounds, Soft, Non-Tender, No Organomegaly, No Distention, No Abnormal Bruit, No Mass Back Exam: Normal Inspection, Full Range of Motion, NT Extremities: Normal Inspection, Normal Range of Motion, Non-Tender, Normal Capillary Refill, No Pedal Edema Neurological: Alert, Oriented Skin Exam: Warm, Dry, No Rash Course - Vital Signs Last Recorded V/S: Last Vital Signs Temp 97.4 F 10/16/19 19:04 Pulse 86 10/16/19 19:04 Resp 16 10/16/19 19:04 BP 137/92 H 10/16/19 19:04 Pulse Ox 100 10/16/19 19:04 - Re-Assessments/Exams Free Text/Narrative Re-Assessment/Exam: 10/16/19 19:11 I discussed with patient that this is an emergency department in treating his chronic pain is not appropriate here, we will not be refilling his prescription tomorrow is Thursday he can follow-up with his PCP tomorrow and get his prescription refilled we will however, give him a one-time injection, to assist with his pain overnight and hopefully he'll be able to sleep in order to see his PCP tomorrow Departure - Departure Time of Disposition: 19:12 Disposition: Home, Self-Care 01 Condition: Good Clinical Impression: Chronic neck pain - Discharge Information Referrals: Peng Norman Jr, MD [Primary Care Provider] - Additional Instructions: Home, rest, heating pad 20 minutes at a time 3-4 times a day, return as needed for worsening condition Sepsis Event Note - Evaluation Sepsis Screening Result: No Definite Risk - Focused Exam Vital Signs: Vital Signs Temp Pulse Resp BP Pulse Ox 10/16/19 19:04 97.4 F 86 16 137/92 H 100 Date Exam was Performed: 10/16/19 Time Exam was Performed: 19:07
== END 2019-10-16 19:30 | disposition home or self-care (01) ==
LOC: JD.ED 18:57
DX: G89.29 Other chronic pain (principal); M54.2 Cervicalgia; I10 Essential (primary) hypertension; E78.00 Pure hypercholesterolemia, unspecified; E11.40 Type 2 diabetes mellitus with diabetic neuropathy, unspecified; Z79.84 Long term (current) use of oral hypoglycemic drugs; Z79.899 Other long term (current) drug therapy; Z88.6 Allergy status to analgesic agent
CPT/HCPCS: 96372; 99283; J2270; J2550; 99282

== ENCOUNTER 2019-10-18 00:34 | Emergency (ER) | payer OTHER ==
[2019-10-18 00:53] VITALS: BP 160/105; PULSE 90
--- NOTE | 2019-10-18 00:54 | EDM.PDOC ---
ED HPI GENERAL MEDICAL PROBLEM - General Chief Complaint: General Stated Complaint: PAIN ALL OVER BODY Time Seen by Provider: 10/18/19 00:54 - History of Present Illness INITIAL COMMENTS - FREE TEXT/NARRATIVE: 59-year-old male returns emergency room with pain requesting refill of his oxycodone Patient was seen here Thursday given a shot of morphine and advised to follow-up with his regular provider on Thursday apparently the patient tried to get hold of his physician but still does not have a refill. According to the patient's own admission he is not due for refill until . He complains mostly of his chronic neck pain with pain into both arms. Patient denies any recent trauma falls or other injury. Treatments [employer] IN[employer]: Reports: NSAIDS Other Treatments [employer]: 600 mg motrin @ 2029 - Related Data Allergies Allergy/AdvReac Type Severity Reaction Status Date / Time aspirin Allergy Anxiety Verified 10/18/19 00:58 Home Meds: Home Meds Diltiazem [Tiazac] 360 mg PO DAILY 02/26/18 [History] Ramipril [Altace] 10 mg PO DAILY 02/26/18 [History] Tamsulosin [Flomax] 0.4 mg PO Q24H #15 cap.er 04/21/19 [Rx] oxyCODONE HCl/Acetaminophen [Percocet 10-325 mg Tablet] 1 each PO Q4H PRN #24 tablet 05/24/19 [Rx] Ondansetron [Zofran ODT] 4 mg PO Q6H PRN #20 tab.dis 06/19/19 [Rx] glipiZIDE [Glucotrol] 10 mg PO BID #60 tablet 07/03/19 [Rx] Past Medical History Cardiovascular History: Reports: High Cholesterol, Hypertension Respiratory History: Reports: Pneumonia, Recurrent Gastrointestinal History: Reports: Chronic Constipation Genitourinary History: Reports: BPH Other Genitourinary History: pt self caths for bladder issues and prostate Musculoskeletal History: Reports: Neck Pain, Chronic, Osteoarthritis Other Musculoskeletal History: neck surgery Neurological History: Reports: Neuropathy, Peripheral Psychiatric History: Reports: Anxiety Endocrine/Metabolic History: Reports: Diabetes, Type II - Infectious Disease History Infectious Disease History: Reports: Chicken Pox, Measles, Mumps - Past Surgical History HEENT Surgical History: Reports: Adenoidectomy, Tonsillectomy Neurological Surgical History: Reports: C-Spine Social & Family History - Family History Family Medical History: Noncontributory - Caffeine Use Caffeine Use: Reports: Coffee, Soda - Living Situation & Occupation Living situation: Reports: , with Spouse 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 GENERAL - Review of Systems Review Of Systems: See Below Constitutional: Reports: No Symptoms Respiratory: Reports: No Symptoms Cardiovascular: Reports: No Symptoms GI/Abdominal: Reports: No Symptoms ED EXAM, GENERAL - Physical Exam Exam: See Below Exam Limited By: No Limitations General Appearance: Alert, No Apparent Distress Respiratory/Chest: No Respiratory Distress, Lungs Clear, Normal Breath Sounds Cardiovascular: Regular Rate, Rhythm, No Edema, No Murmur Course - Vital Signs Last Recorded V/S: Last Vital Signs Temp 36.7 C 10/18/19 00:46 Pulse 90 10/18/19 00:46 Resp 18 10/18/19 00:46 BP 160/105 H 10/18/19 00:46 Pulse Ox 98 10/18/19 00:46 - Orders/Labs/Meds Orders: Active Orders 24 hr Category Date Time Status Ketorolac [Toradol] Med 10/18/19 01:33 Once 30 mg IM ONETIME ONE Medication Orders Ketorolac Tromethamine (Toradol) 30 mg IM ONETIME ONE Stop: 10/18/19 01:34 Meds: Medications Generic Name Dose Route Start Last Admin Trade Name Zahida PRN Reason Stop Dose Admin Ketorolac Tromethamine 30 mg 10/18/19 01:33 Toradol IM 10/18/19 01:34 ONETIME ONE - Re-Assessments/Exams Free Text/Narrative Re-Assessment/Exam: 10/18/19 01:37 I did explain to the patient that he should get all his medication from the same [facility] and from the same pharmacy. The emergency room is not a place for medication refills. I will give him a shot of Toradol 30 mg IM and he needs to follow-up with his physician later today. Did review his chart he had good renal function in June of this year Departure - Departure Time of Disposition: 01:38 Disposition: Home, Self-Care 01 Clinical Impression: Chronic pain, Chronic cervical pain - Discharge Information Referrals: Peng Norman Jr, MD [Primary Care Provider] - Forms: ED Department Discharge Additional Instructions: Follow-up with your regular physician today to get this medication issue resolved. Sepsis Event Note - Evaluation Sepsis Screening Result: No Definite Risk - Focused Exam Vital Signs: Vital Signs Temp Pulse Resp BP Pulse Ox 10/18/19 00:46 36.7 C 90 18 160/105 H 98 Date Exam was Performed: 10/18/19 Time Exam was Performed: 01:35 - My Orders Last 24 Hours: My Active Orders 10/18/19 01:33 Ketorolac [Toradol] 30 mg IM ONETIME ONE - Assessment/Plan Last 24 Hours: My Active Orders 10/18/19 01:33 Ketorolac [Toradol] 30 mg IM ONETIME ONE
[2019-10-18] MEDS ORDERED: Ketorolac 30 MG/ML SDV IM ONE (01:33)
== END 2019-10-18 01:48 | disposition home or self-care (01) ==
LOC: JD.ED 00:34
DX: G89.29 Other chronic pain (principal); M54.2 Cervicalgia; I10 Essential (primary) hypertension; E11.9 Type 2 diabetes mellitus without complications; Z88.5 Allergy status to narcotic agent; Z79.899 Other long term (current) drug therapy
CPT/HCPCS: 96372; 99283-25; J1885

== ENCOUNTER 2019-10-19 16:20 | Emergency (ER) | payer OTHER ==
[2019-10-19 16:37] VITALS: BP 135/96; PULSE 97
--- NOTE | 2019-10-19 16:41 | EDM.PDOC ---
ED HPI GENERAL MEDICAL PROBLEM - General Chief Complaint: Medication Administration Stated Complaint: WITHDRAWL FROM OPIATES Time Seen by Provider: 10/19/19 16:33 Source of Information: Reports: Patient History Limitations: Reports: No Limitations - History of Present Illness INITIAL COMMENTS - FREE TEXT/NARRATIVE: Patient's unfortunate 59-year-old male who presents emergency Department today with complaint of oxycodone addiction. Patient reports that he has chronic pain in his back and has been out of his oxycodone for the past 5 days. Patient was seen here on 10/18/2019 was given a shot of Toradol patient was seen again here on 10/16/2019 at that time was given a shot of morphine and Phenergan area patient reports that he wants to get off narcotics does not want to take opiates anymore first chronic back pain has a follow-up appointment on Thursday with his PCP Generalized Pain Score (Numeric/FACES): 10 - Related Data Allergies Allergy/AdvReac Type Severity Reaction Status Date / Time aspirin Allergy Anxiety Verified 10/19/19 16:36 Home Meds: Home Meds Diltiazem [Tiazac] 360 mg PO DAILY 02/26/18 [History] Ramipril [Altace] 10 mg PO DAILY 02/26/18 [History] Tamsulosin [Flomax] 0.4 mg PO Q24H #15 cap.er 04/21/19 [Rx] oxyCODONE HCl/Acetaminophen [Percocet 10-325 mg Tablet] 1 each PO Q4H PRN #24 tablet 05/24/19 [Rx] Ondansetron [Zofran ODT] 4 mg PO Q6H PRN #20 tab.dis 06/19/19 [Rx] glipiZIDE [Glucotrol] 10 mg PO BID #60 tablet 07/03/19 [Rx] Ondansetron [Zofran ODT] 4 mg PO TID PRN #8 tab.dis 10/19/19 [Rx] cloNIDine [Catapres] 0.1 mg PO Q12HR #8 tab 10/19/19 [Rx] Past Medical History Cardiovascular History: Reports: High Cholesterol, Hypertension Respiratory History: Reports: Pneumonia, Recurrent Gastrointestinal History: Reports: Chronic Constipation Genitourinary History: Reports: BPH Other Genitourinary History: pt self caths for bladder issues and prostate Musculoskeletal History: Reports: Neck Pain, Chronic, Osteoarthritis Other Musculoskeletal History: neck surgery Neurological History: Reports: Neuropathy, Peripheral Psychiatric History: Reports: Anxiety Endocrine/Metabolic History: Reports: Diabetes, Type II - Infectious Disease History Infectious Disease History: Reports: Chicken Pox, Measles, Mumps - Past Surgical History HEENT Surgical History: Reports: Adenoidectomy, Tonsillectomy Neurological Surgical History: Reports: C-Spine Social & Family History - Family History Family Medical History: Noncontributory - Tobacco Use Smoking Status *Q: Current Every Day Smoker Years of Tobacco use: 40 Packs/Tins Daily: 0.2 - Caffeine Use Caffeine Use: Reports: Coffee, Soda - Living Situation & Occupation Living situation: Reports: , with Spouse Occupation: Employed ([employer]) ED ROS GENERAL - Review of Systems Review Of Systems: See Below Constitutional: Denies: Fever, Chills GI/Abdominal: Reports: Nausea. Denies: Abdominal Pain, Vomiting Musculoskeletal: Reports: Back Pain ED EXAM, GENERAL - Physical Exam Exam: See Below Exam Limited By: No Limitations General Appearance: Alert, WD/WN, Mild Distress Ears: Normal External Exam, Normal Canal, Hearing Grossly Normal, Normal TMs Nose: Normal Inspection, Normal Mucosa, No Blood Neck: Normal Inspection, Supple, Non-Tender, Full Range of Motion Respiratory/Chest: No Respiratory Distress, Lungs Clear, Normal Breath Sounds, No Accessory Muscle Use, Chest Non-Tender Cardiovascular: Normal Peripheral Pulses, Regular Rate, Rhythm, No Edema, No Gallop, No JVD, No Murmur, No Rub GI/Abdominal: Normal Bowel Sounds, Soft, Non-Tender, No Organomegaly, No Distention, No Abnormal Bruit, No Mass Back Exam: Normal Inspection, Full Range of Motion, NT Extremities: Other (Mild tenderness paraspinous muscles bilaterally L4-L5 level) Neurological: Alert Skin Exam: Warm, Dry, No Rash Course - Vital Signs Last Recorded V/S: Last Vital Signs Temp 97.4 F 10/19/19 16:31 Pulse 97 10/19/19 16:31 Resp 16 10/19/19 16:31 BP 135/96 H 10/19/19 16:31 Pulse Ox 99 10/19/19 16:31 Departure - Departure Time of Disposition: 16:44 Disposition: Home, Self-Care 01 Condition: Good Clinical Impression: Opiate withdrawal Chronic back pain Qualifiers: Back pain location: low back pain Back pain laterality: unspecified Sciatica presence: without sciatica Qualified Code(s): M54.5 - Low back pain; G89.29 - Other chronic pain - Discharge Information Prescriptions: cloNIDine [Catapres] 0.1 mg PO Q12HR #8 tab Ondansetron [Zofran ODT] 4 mg PO TID PRN #8 tab.dis PRN Reason: Nausea Referrals: Peng Norman Jr, MD [Primary Care Provider] - Forms: ED Department Discharge Additional Instructions: Home, rest, avoid opiates, you may need counseling for your opiate addiction I would suggest [facility], return as needed for worsening condition Sepsis Event Note - Evaluation Sepsis Screening Result: No Definite Risk - Focused Exam Vital Signs: Vital Signs Temp Pulse Resp BP Pulse Ox 10/19/19 16:31 97.4 F 97 16 135/96 H 99 Date Exam was Performed: 10/19/19 Time Exam was Performed: 16:43
== END 2019-10-19 17:08 | disposition home or self-care (01) ==
LOC: JD.ED 16:20
DX: F11.23 Opioid dependence with withdrawal (principal); M54.5 Low back pain; I10 Essential (primary) hypertension; E11.42 Type 2 diabetes mellitus with diabetic polyneuropathy; M19.90 Unspecified osteoarthritis, unspecified site; F41.9 Anxiety disorder, unspecified; N40.0 Benign prostatic hyperplasia without lower urinary tract symptoms; F17.210 Nicotine dependence, cigarettes, uncomplicated; Z79.84 Long term (current) use of oral hypoglycemic drugs; Z79.899 Other long term (current) drug therapy; Z88.8 Allergy status to other drugs, medicaments and biological substances
CPT/HCPCS: 99283

== ENCOUNTER 2019-10-20 18:12 | Emergency (ER) | payer OTHER ==
[2019-10-20] MEDS ORDERED: Ketorolac 60 MG/2 ML SDV IM ONE (18:34)
[2019-10-20 18:37] VITALS: BP 120/97; PULSE 89
--- NOTE | 2019-10-20 18:38 | EDM.PDOC ---
ED HPI GENERAL MEDICAL PROBLEM - General Chief Complaint: General Stated Complaint: NECK AND SHOULDER PAIN Time Seen by Provider: 10/20/19 18:31 Source of Information: Reports: Patient, Family History Limitations: Reports: No Limitations - History of Present Illness INITIAL COMMENTS - FREE TEXT/NARRATIVE: Patient is an [id number] male presents today with chronic neck pain and was seen here yesterday and diagnosed with opioid withdrawal was placed on clonidine and Zofran at home. Patient reports that he continues to have pain in his neck which radiates to his fingers. Patient reports this time he wants to get back on opioids. I've instructed the patient had a long discussion with him that it is inappropriate to treat chronic pain with opioids as we will not be doing that at this time this states he does not want stop opioids but has an appointment with his primary care doctor tomorrow. Instructed him that we will be happy to give him a shot of a non-opioid and let him follow up with his PCP tomorrow patient has agreed to this and will be discharged home. Patient denies any other symptoms at this time no symptoms are new this pain is his chronic pain - Related Data Allergies Allergy/AdvReac Type Severity Reaction Status Date / Time aspirin Allergy Anxiety Verified 10/19/19 16:36 Home Meds: Home Meds Diltiazem [Tiazac] 360 mg PO DAILY 02/26/18 [History] Ramipril [Altace] 10 mg PO DAILY 02/26/18 [History] Tamsulosin [Flomax] 0.4 mg PO Q24H #15 cap.er 04/21/19 [Rx] oxyCODONE HCl/Acetaminophen [Percocet 10-325 mg Tablet] 1 each PO Q4H PRN #24 tablet 05/24/19 [Rx] Ondansetron [Zofran ODT] 4 mg PO Q6H PRN #20 tab.dis 06/19/19 [Rx] glipiZIDE [Glucotrol] 10 mg PO BID #60 tablet 07/03/19 [Rx] Ondansetron [Zofran ODT] 4 mg PO TID PRN #8 tab.dis 10/19/19 [Rx] cloNIDine [Catapres] 0.1 mg PO Q12HR #8 tab 10/19/19 [Rx] Past Medical History Cardiovascular History: Reports: High Cholesterol, Hypertension Respiratory History: Reports: Pneumonia, Recurrent Gastrointestinal History: Reports: Chronic Constipation Genitourinary History: Reports: BPH Other Genitourinary History: pt self caths for bladder issues and prostate Musculoskeletal History: Reports: Neck Pain, Chronic, Osteoarthritis Other Musculoskeletal History: neck surgery Neurological History: Reports: Neuropathy, Peripheral Psychiatric History: Reports: Anxiety Endocrine/Metabolic History: Reports: Diabetes, Type II - Infectious Disease History Infectious Disease History: Reports: Chicken Pox, Measles, Mumps - Past Surgical History HEENT Surgical History: Reports: Adenoidectomy, Tonsillectomy Neurological Surgical History: Reports: C-Spine Social & Family History - Family History Family Medical History: Noncontributory - Caffeine Use Caffeine Use: Reports: Coffee, Soda - Living Situation & Occupation Living situation: Reports: , with Spouse 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 GENERAL - Review of Systems Review Of Systems: See Below Constitutional: Denies: Fever, Chills HEENT: Reports: Other (Neck pain) ED EXAM, GENERAL - Physical Exam Exam: See Below Exam Limited By: No Limitations General Appearance: Alert, WD/WN, Anxious, Mild Distress Neck: Other (Status tenderness to bilateral paraspinous muscles at the C5-C6 level bilateral trapezius and tingling that extends to the fingers on both hands ) Respiratory/Chest: No Respiratory Distress, Lungs Clear, Normal Breath Sounds, No Accessory Muscle Use, Chest Non-Tender Cardiovascular: Normal Peripheral Pulses, Regular Rate, Rhythm, No Edema, No Gallop, No JVD, No Murmur, No Rub GI/Abdominal: Normal Bowel Sounds, Soft, Non-Tender, No Organomegaly, No Distention, No Abnormal Bruit, No Mass Extremities: Normal Inspection, Normal Range of Motion, Non-Tender, Normal Capillary Refill, No Pedal Edema Neurological: Alert, Oriented Skin Exam: Warm, Dry, No Rash Course - Orders/Labs/Meds Meds: Medications Discontinued Medications Generic Name Dose Route Start Last Admin Trade Name Freq PRN Reason Stop Dose Admin Ketorolac Tromethamine 60 mg 10/20/19 18:34 Toradol IM 10/20/19 18:35 ONETIME ONE - Re-Assessments/Exams Free Text/Narrative Re-Assessment/Exam: 10/20/19 18:37 We have discussed at great length that opioid therapy is not appropriate for chronic pain we will not be giving the patient any opioids at this time the patient is to follow-up with his PCP tomorrow Departure - Departure Time of Disposition: 18:38 Disposition: Home, Self-Care 01 Clinical Impression: Cervical radiculopathy, Chronic cervical pain, Opiate withdrawal - Discharge Information Referrals: Peng Norman Jr, MD [Primary Care Provider] - Additional Instructions: Home, rest, heating pad 20 minutes at a time 3-4 times a day, return as needed for worsening condition
== END 2019-10-20 18:45 | disposition home or self-care (01) ==
LOC: JD.ED 18:12
DX: M54.12 Radiculopathy, cervical region (principal); G89.29 Other chronic pain; F11.23 Opioid dependence with withdrawal; I10 Essential (primary) hypertension; E11.9 Type 2 diabetes mellitus without complications; M19.90 Unspecified osteoarthritis, unspecified site; Z98.890 Other specified postprocedural states; Z88.6 Allergy status to analgesic agent
CPT/HCPCS: 96372; 99283; J1885

== ENCOUNTER 2019-10-21 16:30 | Emergency (ER) | payer OTHER ==
[2019-10-21 16:41] VITALS: BP 144/80; PULSE 101
[2019-10-21] MEDS ORDERED: Sodium Chloride 0.9% 10 ML Syringe FLUSH PRN (16:41)
--- NOTE | 2019-10-21 16:45 | EDM.PDOCBH ---
ED HPI GENERAL MEDICAL PROBLEM - General Chief Complaint: Drug or Alcohol Abuse Stated Complaint: DETOX Time Seen by Provider: 10/21/19 16:34 Source of Information: Reports: Patient History Limitations: Reports: No Limitations - History of Present Illness INITIAL COMMENTS - FREE TEXT/NARRATIVE: She has unfortunate 59-year-old male who presents emergency Department today with complaint of chronic neck pain and opioid withdrawal symptoms. Patient denies any symptoms at this time no nausea no vomiting no fever no chills no shortness of breath. However, patient does report that he is an alcoholic despite previous questioning on this the last 5 visits the patient was here and denied alcohol use he now reports that he use 1.5 L of liquor per day is approximately 2:00 today and now he wants to get off of alcohol. He did not follow-up with his PCP as directed today he reported he did not want to be on opioids anymore. Patient does complain of chronic neck pain we will not be addressing that at this time as we do not address chronic pain in the emergency department we discussed this at length with patient who was not happy with the decision wanted be admitted to the hospital for alcohol detox Bilateral Upper Shoulder Pain Score (Numeric/FACES): 9 - Related Data Allergies Allergy/AdvReac Type Severity Reaction Status Date / Time aspirin Allergy Anxiety Verified 10/21/19 16:48 Home Meds: Home Meds Diltiazem [Tiazac] 360 mg PO DAILY 02/26/18 [History] Ramipril [Altace] 10 mg PO DAILY 02/26/18 [History] Tamsulosin [Flomax] 0.4 mg PO Q24H #15 cap.er 04/21/19 [Rx] oxyCODONE HCl/Acetaminophen [Percocet 10-325 mg Tablet] 1 each PO Q4H PRN #24 tablet 05/24/19 [Rx] Ondansetron [Zofran ODT] 4 mg PO Q6H PRN #20 tab.dis 06/19/19 [Rx] glipiZIDE [Glucotrol] 10 mg PO BID #60 tablet 07/03/19 [Rx] cloNIDine [Catapres] 0.1 mg PO Q12HR #8 tab 10/19/19 [Rx] Ondansetron [Zofran ODT] 4 mg PO TID PRN #8 tab.dis 10/21/19 [Rx] cephALEXin [Keflex] 500 mg PO QID #28 cap 10/21/19 [Rx] Past Medical History Cardiovascular History: Reports: High Cholesterol, Hypertension Respiratory History: Reports: Pneumonia, Recurrent Gastrointestinal History: Reports: Chronic Constipation Genitourinary History: Reports: BPH Other Genitourinary History: pt self caths for bladder issues and prostate Musculoskeletal History: Reports: Neck Pain, Chronic, Osteoarthritis Other Musculoskeletal History: neck surgery Neurological History: Reports: Neuropathy, Peripheral Psychiatric History: Reports: Anxiety Endocrine/Metabolic History: Reports: Diabetes, Type II - Infectious Disease History Infectious Disease History: Reports: Chicken Pox, Measles, Mumps - Past Surgical History HEENT Surgical History: Reports: Adenoidectomy, Tonsillectomy Neurological Surgical History: Reports: C-Spine Social & Family History - Family History Family Medical History: Noncontributory - Caffeine Use Caffeine Use: Reports: Coffee, Soda - Living Situation & Occupation Living situation: Reports: , with Spouse 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 GENERAL - Review of Systems Review Of Systems: See Below Constitutional: Denies: Fever, Chills GI/Abdominal: Denies: Abdominal Pain, Anorexia, Bloody Stool, Nausea, Vomiting Musculoskeletal: Reports: Neck Pain ED EXAM, BEHAVIORAL HEALTH - Physical Exam Exam: See Below Exam Limited By: No Limitations General Appearance: Alert, WD/WN, Mild Distress Throat/Mouth: Normal Inspection, Normal Lips, Normal Teeth, Normal Gums, Normal Oropharynx, Normal Voice, No Airway Compromise Head: Atraumatic, Normocephalic Neck: Normal Inspection, Supple, Non-Tender, Full Range of Motion Respiratory/Chest: No Respiratory Distress, Lungs Clear, Normal Breath Sounds, No Accessory Muscle Use, Chest Non-Tender Cardiovascular: Normal Peripheral Pulses, Regular Rate, Rhythm, No Edema, No Gallop, No JVD, No Murmur, No Rub GI/Abdominal: Normal Bowel Sounds, Soft, Non-Tender, No Organomegaly, No Distention, No Abnormal Bruit, No Mass Back Exam: Normal Inspection, Full Range of Motion, NT Extremities: Normal Inspection, Normal Range of Motion, Non-Tender, Normal Capillary Refill, No Pedal Edema Neurological: Alert, CN II-XII Intact Psychiatric: Alert. No: Suicidal Plan, Suicidal Thoughts Skin Exam: Warm, Dry, No rash COURSE, BEHAVIORAL HEALTH COMP - Course Vital Signs: Last Vital Signs Temp 97.6 F 10/21/19 16:40 Pulse 101 H 10/21/19 16:40 Resp 20 10/21/19 16:40 BP 144/80 H 10/21/19 16:40 Pulse Ox 99 10/21/19 16:40 Orders, Labs, Meds: Active Orders 24 hr Category Date Time Status CULTURE URINE [RM] Stat Lab 10/21/19 17:32 Received Sodium Chloride 0.9% [Saline Flush] Med 10/21/19 16:41 Active 10 ml FLUSH ASDIRECTED PRN Saline Lock Insert [OM.PC] Stat Oth 10/21/19 16:42 Ordered Medication Orders Sodium Chloride (Saline Flush) 10 ml FLUSH ASDIRECTED PRN PRN Reason: Keep Vein Open Last Admin: 10/21/19 16:57 Dose: 10 ml Laboratory Tests 10/21/19 10/21/19 10/21/19 Range/Units 16:42 16:50 17:32 WBC 6.11 (4.23-9.07) K/mm3 RBC 4.15 L (4.63-6.08) M/mm3 Hgb 14.3 (13.7-17.5) gm/dl Hct 40.0 L (40.1-51.0) % MCV 96.4 H (79.0-92.2) fl MCH 34.5 H (25.7-32.2) pg MCHC 35.8 H (32.2-35.5) g/dl RDW Std Deviation 41.9 (35.1-43.9) fL Plt Count 228 D (163-337) K/mm3 MPV 9.4 (9.4-12.3) fl Neut % (Auto) 70.9 H (34.0-67.9) % Lymph % (Auto) 16.0 L (21.8-53.1) % [place] % (Auto) 11.1 (5.3-12.2) % Eos % (Auto) 1.3 (0.8-7.0) Baso % (Auto) 0.2 (0.1-1.2) % Neut # (Auto) 4.33 (1.78-5.38) K/mm3 Lymph # (Auto) 0.98 L (1.32-3.57) K/mm3 [place] # (Auto) 0.68 (0.30-0.82) K/mm3 Eos # (Auto) 0.08 (0.04-0.54) K/mm3 Baso # (Auto) 0.01 (0.01-0.08) K/mm3 Manual Slide Review Not Reportable Sodium 136 (136-145) mEq/L Potassium 3.3 L (3.5-5.1) mEq/L Chloride 99 (98-107) mEq/L Carbon Dioxide 23 (21-32) mEq/L Anion Gap 17.3 H (5-15) BUN 13 (7-18) mg/dL Creatinine 0.8 (0.7-1.3) mg/dL Est Cr Clr Drug Dosing 113.75 mL/min Estimated GFR (MDRD) > 60 (>60) mL/min BUN/Creatinine Ratio 16.3 (14-18) Glucose 190 H (74-106) mg/dL Calcium 7.8 L (8.5-10.1) mg/dL Total Bilirubin 0.6 (0.2-1.0) mg/dL AST 63 H (15-37) U/L ALT 83 H (16-63) U/L Alkaline Phosphatase 83 (46-116) U/L Total Protein 6.0 L (6.4-8.2) g/dl Albumin 3.3 L (3.4-5.0) g/dl Globulin 2.7 gm/dL Albumin/Globulin Ratio 1.2 (1-2) Lipase 571 H (73-393) U/L Urine Color Yellow (Yellow) Urine Appearance Slt cloudy H (Clear) Urine pH 6.0 (5.0-8.0) Ur Specific Funk 1.015 (1.005-1.030) Urine Protein Negative (Negative) Urine Glucose (UA) Negative (Negative) Urine Ketones Negative (Negative) Urine Occult Blood Negative (Negative) Urine Nitrite Negative (Negative) Urine Bilirubin Negative (Negative) Urine Urobilinogen 1.0 (0.2-1.0) Ur Leukocyte Esterase 2+ H (Negative) Urine RBC 5-10 H (0-5) /hpf Urine WBC 30-40 H (0-5) /hpf Ur Squamous Epith Cells 0-5 (0-5) /hpf Urine Bacteria Many H (FEW) /hpf Urine Mucus Few (FEW) /hpf Urine Opiates Screen (VUQQAR=290) Ur Buprenorphine Scrn (CUTOFF=10) Ur Oxycodone Screen (QPZ5PL=070) Urine Methadone Screen (ZHC0RI=610) Ur Propoxyphene Screen (MXVUYS=564) Ur Barbiturates Screen (BAIHGG=203) Ur Tricyclics Screen (CHCWRM=465) Ur Phencyclidine Scrn (CUTOFF=25) Ur Amphetamine Screen (FRHVFU=250) U Methamphetamines Scrn (KLLBAC=153) U Benzodiazepines Scrn (ADSUMP=626) U Cocaine Metab Screen (MVBRFX=909) U Marijuana (THC) Screen (CUTOFF=50) Ethyl Alcohol 0.16 (0.00) gm% 10/21/19 Range/Units 17:32 WBC (4.23-9.07) K/mm3 RBC (4.63-6.08) M/mm3 Hgb (13.7-17.5) gm/dl Hct (40.1-51.0) % MCV (79.0-92.2) fl MCH (25.7-32.2) pg MCHC (32.2-35.5) g/dl RDW Std Deviation (35.1-43.9) fL Plt Count (163-337) K/mm3 MPV (9.4-12.3) fl Neut % (Auto) (34.0-67.9) % Lymph % (Auto) (21.8-53.1) % [place] % (Auto) (5.3-12.2) % Eos % (Auto) (0.8-7.0) Baso % (Auto) (0.1-1.2) % Neut # (Auto) (1.78-5.38) K/mm3 Lymph # (Auto) (1.32-3.57) K/mm3 [place] # (Auto) (0.30-0.82) K/mm3 Eos # (Auto) (0.04-0.54) K/mm3 Baso # (Auto) (0.01-0.08) K/mm3 Manual Slide Review Sodium (136-145) mEq/L Potassium (3.5-5.1) mEq/L Chloride (98-107) mEq/L Carbon Dioxide (21-32) mEq/L Anion Gap (5-15) BUN (7-18) mg/dL Creatinine (0.7-1.3) mg/dL Est Cr Clr Drug Dosing mL/min Estimated GFR (MDRD) (>60) mL/min BUN/Creatinine Ratio (14-18) Glucose (74-106) mg/dL Calcium (8.5-10.1) mg/dL Total Bilirubin (0.2-1.0) mg/dL AST (15-37) U/L ALT (16-63) U/L Alkaline Phosphatase (46-116) U/L Total Protein (6.4-8.2) g/dl Albumin (3.4-5.0) g/dl Globulin gm/dL Albumin/Globulin Ratio (1-2) Lipase (73-393) U/L Urine Color (Yellow) Urine Appearance (Clear) Urine pH (5.0-8.0) Ur Specific [place] (1.005-1.030) Urine Protein (Negative) Urine Glucose (UA) (Negative) Urine Ketones (Negative) Urine Occult Blood (Negative) Urine Nitrite (Negative) Urine Bilirubin (Negative) Urine Urobilinogen (0.2-1.0) Ur Leukocyte Esterase (Negative) Urine RBC (0-5) /hpf Urine WBC (0-5) /hpf Ur Squamous Epith Cells (0-5) /hpf Urine Bacteria (FEW) /hpf Urine Mucus (FEW) /hpf Urine Opiates Screen Negative (NWGWRS=962) Ur Buprenorphine Scrn Negative (CUTOFF=10) Ur Oxycodone Screen Negative (QXY2QZ=772) Urine Methadone Screen Negative (BPG5EO=301) Ur Propoxyphene Screen Negative (CFDPKL=285) Ur Barbiturates Screen Negative (BNKKVA=300) Ur Tricyclics Screen Negative (SBGXYL=167) Ur Phencyclidine Scrn Negative (CUTOFF=25) Ur Amphetamine Screen Negative (XPFIDH=495) U Methamphetamines Scrn Negative (PUBHVC=333) U Benzodiazepines Scrn Negative (ZWCWWQ=671) U Cocaine Metab Screen Negative (ZXABUZ=021) U Marijuana (THC) Screen Negative (CUTOFF=50) Ethyl Alcohol (0.00) gm% Medications Generic Name Dose Route Start Last Admin Trade Name Freq PRN Reason Stop Dose Admin Sodium Chloride 10 ml 10/21/19 16:41 10/21/19 16:57 Saline Flush FLUSH 10 ml ASDIRECTED PRN Administration Keep Vein Open Discontinued Medications Generic Name Dose Route Start Last Admin Trade Name Zaihda PRN Reason Stop Dose Admin Ketorolac Tromethamine 10 mg 10/21/19 17:40 10/21/19 17:43 Toradol IVPUSH 10/21/19 17:41 10 mg ONETIME ONE Administration Medical Clearance: 10/21/19 18:38 Chest case with [facility] they do not have a bed available for the patient, I notified the patient this patient reports that he does not want to quit drinking at this time and as such she is in no danger of going into DTs we will not Rx him any benzodiazepines at this point, we will give him some nausea medicine and have him follow-up with [facility] as an outpatient Departure - Departure Time of Disposition: 18:39 Disposition: Home, Self-Care 01 Clinical Impression: Alcohol abuse, Chronic cervical pain UTI (urinary tract infection) Qualifiers: Urinary tract infection type: site unspecified Hematuria presence: without hematuria Qualified Code(s): N39.0 - Urinary tract infection, site not specified - Discharge Information Prescriptions: cephALEXin [Keflex] 500 mg PO QID #28 cap Ondansetron [Zofran ODT] 4 mg PO TID PRN #8 tab.dis PRN Reason: Nausea Referrals: Peng Norman Jr, MD [Primary Care Provider] - Forms: ED Department Discharge Additional Instructions: Home, rest, drinking alcohol, we recommend that you follow up outpatient tomorrow with [facility] and/or Alcoholics Anonymous, return as needed for worsening condition, Good [place]! Sepsis Event Note - Evaluation Sepsis Screening Result: No Definite Risk - Focused Exam Vital Signs: Vital Signs Temp Pulse Resp BP Pulse Ox 10/21/19 16:40 97.6 F 101 H 20 144/80 H 99 Date Exam was Performed: 10/21/19 Time Exam was Performed: 18:38 - My Orders Last 24 Hours: My Active Orders 10/21/19 16:41 Sodium Chloride 0.9% [Saline Flush] 10 ml FLUSH ASDIRECTED PRN 10/21/19 16:42 Saline Lock Insert [OM.PC] Stat 10/21/19 17:32 CULTURE URINE [RM] Stat - Assessment/Plan Last 24 Hours: My Active Orders 10/21/19 16:41 Sodium Chloride 0.9% [Saline Flush] 10 ml FLUSH ASDIRECTED PRN 10/21/19 16:42 Saline Lock Insert [OM.PC] Stat 10/21/19 17:32 CULTURE URINE [RM] Stat
[2019-10-21] MEDS ORDERED: Ketorolac 15 MG/ML SDV IVPUSH ONE (17:40)
== END 2019-10-21 18:55 | disposition home or self-care (01) ==
LOC: JD.ED 16:30
DX: G89.29 Other chronic pain (principal); M54.2 Cervicalgia; F10.10 Alcohol abuse, uncomplicated; Y90.0 Blood alcohol level of less than 20 mg/100 ml; N39.0 Urinary tract infection, site not specified; B96.89 Other specified bacterial agents as the cause of diseases classified elsewhere; I10 Essential (primary) hypertension; E11.42 Type 2 diabetes mellitus with diabetic polyneuropathy; E78.00 Pure hypercholesterolemia, unspecified; N40.0 Benign prostatic hyperplasia without lower urinary tract symptoms; F41.9 Anxiety disorder, unspecified; M19.90 Unspecified osteoarthritis, unspecified site; Z88.8 Allergy status to other drugs, medicaments and biological substances; Z79.899 Other long term (current) drug therapy; Z79.84 Long term (current) use of oral hypoglycemic drugs
CPT/HCPCS: 36415; 80053; 80306; 80320; 81001; 83690; 85025; 87086; 87088; 87186; 96374; 99284; J1885; G0480

== ENCOUNTER 2019-10-23 05:02 | Emergency (ER) | payer OTHER ==
[2019-10-23 05:20] VITALS: BP 120/85; PULSE 99
--- NOTE | 2019-10-23 05:44 | EDM.PDOC ---
ED HPI GENERAL MEDICAL PROBLEM - General Chief Complaint: General Stated Complaint: NECK AND SHOULDER PAIN Time Seen by Provider: 10/23/19 05:17 Source of Information: Reports: Patient History Limitations: Reports: No Limitations - History of Present Illness INITIAL COMMENTS - FREE TEXT/NARRATIVE: Is a 59-year-old male. He has chronic pain in his neck and shoulders. He is normally seen by his family doctor who provides him with opioid pain medications. Because the patient was taking more and more of these medications to get the same effect he decided to stop his opioids. He has been off them now for 7 days. He was seen a couple of days ago and placed on some clonidine and Zofran for withdrawal symptoms. He was also given a Toradol shot for his pain. But he has not been given opioids from the ER so far. Supposed to see Dr. Norman on Thursday but he did not have a ride so he did not go. Now he is going to see Dr. Norman on Thursday but in between times he wants something for his pain. I explained to him that we do not treat chronic pain in the ER and that he has to get his pain medications from his family doctor who is the one that supplies them. We also talked about having his family doctor sent him to pain management so they can find some other options that might work for him rather than just opioids. I suggested he talk to his family doctor about being referred to pain management. Patient states that now he drinks alcohol to help dull the pain and he drinks a lot of it. Neck Pain Score (Numeric/FACES): 10 Bilateral Shoulder Pain Score (Numeric/FACES): 10 - Related Data Allergies Allergy/AdvReac Type Severity Reaction Status Date / Time aspirin Allergy Anxiety Verified 10/21/19 16:48 Home Meds: Home Meds Diltiazem [Tiazac] 360 mg PO DAILY 02/26/18 [History] Ramipril [Altace] 10 mg PO DAILY 02/26/18 [History] Tamsulosin [Flomax] 0.4 mg PO Q24H #15 cap.er 04/21/19 [Rx] Ondansetron [Zofran ODT] 4 mg PO Q6H PRN #20 tab.dis 06/19/19 [Rx] glipiZIDE [Glucotrol] 10 mg PO BID #60 tablet 07/03/19 [Rx] cloNIDine [Catapres] 0.1 mg PO Q12HR #8 tab 10/19/19 [Rx] Ondansetron [Zofran ODT] 4 mg PO TID PRN #8 tab.dis 10/21/19 [Rx] traMADol [Ultram] 50 mg PO Q6H PRN #6 tab 10/23/19 [Rx] Past Medical History Cardiovascular History: Reports: High Cholesterol, Hypertension Respiratory History: Reports: Pneumonia, Recurrent Gastrointestinal History: Reports: Chronic Constipation Genitourinary History: Reports: BPH Other Genitourinary History: pt self caths for bladder issues and prostate Musculoskeletal History: Reports: Neck Pain, Chronic, Osteoarthritis Other Musculoskeletal History: neck surgery Neurological History: Reports: Neuropathy, Peripheral Psychiatric History: Reports: Anxiety Endocrine/Metabolic History: Reports: Diabetes, Type II - Infectious Disease History Infectious Disease History: Reports: Chicken Pox, Measles, Mumps - Past Surgical History HEENT Surgical History: Reports: Adenoidectomy, Tonsillectomy Neurological Surgical History: Reports: C-Spine Social & Family History - Family History Family Medical History: Noncontributory - Tobacco Use Smoking Status *Q: Never Smoker - Caffeine Use Caffeine Use: Reports: None - Recreational Drug Use Recreational Drug Use: No - Living Situation & Occupation Living situation: Reports: , with Spouse 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 Denies: Fever, Chills HEENT: Reports: No Symptoms Respiratory: Reports: No Symptoms Cardiovascular: Reports: No Symptoms Endocrine: Reports: No Symptoms GI/Abdominal: Denies: Abdominal Pain, Diarrhea, Nausea, Vomiting : Reports: No Symptoms Musculoskeletal: Reports: Other (Chronic neck and shoulder pain) Skin: Reports: No Symptoms Neurological: Reports: No Symptoms Psychiatric: Reports: Mood Lability Hematologic/Lymphatic: Reports: No Symptoms ED EXAM, GENERAL - Physical Exam Exam: See Below Exam Limited By: No Limitations General Appearance: Alert, WD/WN, No Apparent Distress Eye Exam: Bilateral Eye: Normal Inspection Ears: Normal External Exam Nose: Normal Inspection Throat/Mouth: Normal Inspection, Normal Lips, Normal Voice, No Airway Compromise Head: Normocephalic Neck: Other (Planes of cervical tenderness with movement as well as palpation, also complains of trapezius muscle and shoulder muscle tenderness) Respiratory/Chest: No Respiratory Distress, Lungs Clear, Normal Breath Sounds Cardiovascular: Regular Rate, Rhythm, No Murmur GI/Abdominal: Soft Back Exam: Decreased Range of Motion Extremities: Normal Inspection, Normal Range of Motion Neurological: Alert, Oriented Psychiatric: Depressed Mood, Flat Affect Skin Exam: Warm, Dry Course - Vital Signs Last Recorded V/S: Last Vital Signs Temp 97.8 F 10/23/19 05:16 Pulse 99 10/23/19 05:16 Resp 16 10/23/19 05:16 BP 120/85 10/23/19 05:16 Pulse Ox 100 10/23/19 05:16 - Orders/Labs/Meds Meds: Medications Discontinued Medications Generic Name Dose Route Start Last Admin Trade Name Freq PRN Reason Stop Dose Admin Ketorolac Tromethamine 60 mg 10/23/19 05:46 Toradol IM 10/23/19 05:47 ONETIME ONE Departure - Departure Time of Disposition: 05:43 Disposition: Home, Self-Care 01 Condition: Fair Clinical Impression: Chronic neck pain with history of cervical spinal surgery, Neck and shoulder pain, Alcohol ingestion Opioid dependence Qualifiers: Substance use status: with opioid-induced mood disorder Qualified Code(s): F11.24 - Opioid dependence with opioid-induced mood disorder - Discharge Information *PRESCRIPTION DRUG MONITORING PROGRAM REVIEWED*: Yes *COPY OF PRESCRIPTION DRUG MONITORING REPORT IN PATIENT [place]: No Prescriptions: traMADol [Ultram] 50 mg PO Q6H PRN #6 tab PRN Reason: Pain Referrals: Peng Norman Jr, MD [Primary Care Provider] - Forms: ED Department Discharge Additional Instructions: Follow-up with Dr. Norman on Thursday like you are saying you well, ask him to refer you to pain management for other options rather than opioid medications, remember that the ER does not treat chronic pain especially when you get your pain medications from your provider, return to the ER as needed Sepsis Event Note - Evaluation Sepsis Screening Result: No Definite Risk - Focused Exam Vital Signs: Vital Signs Temp Pulse Resp BP Pulse Ox 10/23/19 05:16 97.8 F 99 16 120/85 100 Date Exam was Performed: 10/23/19 Time Exam was Performed: 05:47
[2019-10-23] MEDS ORDERED: Ketorolac 60 MG/2 ML SDV IM ONE (05:46)
== END 2019-10-23 06:09 | disposition home or self-care (01) ==
LOC: JD.ED 05:02
DX: G89.29 Other chronic pain (principal); M54.2 Cervicalgia; M25.511 Pain in right shoulder; M25.512 Pain in left shoulder; F11.24 Opioid dependence with opioid-induced mood disorder; N40.0 Benign prostatic hyperplasia without lower urinary tract symptoms; E11.42 Type 2 diabetes mellitus with diabetic polyneuropathy; I10 Essential (primary) hypertension; Z88.6 Allergy status to analgesic agent; Z79.899 Other long term (current) drug therapy; Z79.84 Long term (current) use of oral hypoglycemic drugs; Z98.890 Other specified postprocedural states; Z72.89 Other problems related to lifestyle
CPT/HCPCS: 96372; 99283; J1885

== ENCOUNTER 2019-10-24 04:03 | Emergency (ER) | payer OTHER ==
--- NOTE | 2019-10-24 04:54 | EDM.PDOC ---
ED HPI GENERAL MEDICAL PROBLEM - General Chief Complaint: General Stated Complaint: SHOULDER AND NECK PAIN Time Seen by Provider: 10/24/19 04:12 Source of Information: Reports: Patient, Family () History Limitations: Reports: No Limitations - History of Present Illness INITIAL COMMENTS - FREE TEXT/NARRATIVE: Mr. Woo is a 59-year-old man with a past history significant for chronic neck pain with peripheral neuropathy causing numbness of his hands and generalized body pain. The patient's chronic pain is managed with Percocet 10/325, prescribed by his PCP. I last saw the patient in this ED on 09/18/2019 with a complaint at that time of increased neck pain. He requested a refill of his Percocet to last him for a few days, acknowledging that he been taking one tablet every 4 hours, even though he was prescribed one tablet every 6 hours. Since that visit, the patient has been to the ED 6 times, not including this morning, since 10/16/2019 on a near-daily basis and all for generalized body aches/opioid withdrawal symptoms. His most recent visit was just about 24 hours ago, 10/23/2019. He reported chronic pain in his neck and shoulders. He stated that because he was developing tolerance to opioids, he decided to stop his opioids 7 days previous, on 10/16/2019. He was supposed to see his PCP on 10/21/2019, but he told the ED physician that he didn't have a ride, therefore did not go. He told the ED physician that he was going to see his PCP today, but in the meantime, he wanted something for his pain. It was explained to the patient that the ED does not treat chronic pain, and he would need to see his PCP about that. The ED physician suggested that the patient talk to his PCP about being referred to pain management. The patient was given IM injection of ketorolac then discharged home with a prescription for tramadol 50 mg, one tablet by mouth every 6 hours PRN, #6. The patient now returns to the ED with virtually the identical complaint, stating that he has chronic neck and shoulder pain, no different from yesterday , requesting something for pain. He states that because yesterday was Thursday, he was unable to fill the prescription for tramadol. Unlike yesterday, however, when he stated that he intentionally stopped his opioids, he is now telling me that he is simply ran out of them. He denies, however, taking any of his pain medications in excess of his prescription. He scoffed at the idea, but I had to remind him that that is exactly what he had acknowledged doing when I saw him on 09/18/2019. Instead, the patient indicated that he would have been fine, were it not for not being able to get to his doctor's office on Thursday. Further , the patient states that he does not in fact have an appointment to see his PCP today, but that he intends to call his office today, to make an appointment. The patient states that in addition to Percocet, he also takes ibuprofen, 800 mg every 6 hours, with his most recent dose around midnight. Review of the [place] PMPi finds that the patient filled a prescription on 2018 for 120 tablets of Percocet 10/325 - a 30 day supply - prescribed by his PCP, then filled a second prescription on 10/14/2019 for 8 tablets of the same - a 2 day supply. The patient's PCP is Dr. Peng Norman. His Spinal Surgeon is Dr. Norm Burdick. His Neurology mid-level is Tali Sequeira NP. Bilateral Shoulder Pain Score (Numeric/FACES): 10 Neck Pain Score (Numeric/FACES): 10 - Related Data Allergies Allergy/AdvReac Type Severity Reaction Status Date / Time aspirin Allergy Anxiety Verified 10/24/19 04:12 Home Meds: Home Meds Diltiazem [Tiazac] 360 mg PO DAILY 02/26/18 [History] Ramipril [Altace] 10 mg PO DAILY 02/26/18 [History] Tamsulosin [Flomax] 0.4 mg PO Q24H #15 cap.er 04/21/19 [Rx] Ondansetron [Zofran ODT] 4 mg PO Q6H PRN #20 tab.dis 06/19/19 [Rx] glipiZIDE [Glucotrol] 10 mg PO BID #60 tablet 07/03/19 [Rx] cloNIDine [Catapres] 0.1 mg PO Q12HR #8 tab 10/19/19 [Rx] Ondansetron [Zofran ODT] 4 mg PO TID PRN #8 tab.dis 10/21/19 [Rx] traMADol [Ultram] 50 mg PO Q6H PRN #6 tab 10/23/19 [Rx] Past Medical History Cardiovascular History: Reports: High Cholesterol (untreated), Hypertension Genitourinary History: Reports: BPH (requires self-catheterization) Musculoskeletal History: Reports: Neck Pain, Chronic, Osteoarthritis Neurological History: Reports: Neuropathy, Peripheral Psychiatric History: Reports: Anxiety (untreated) Endocrine/Metabolic History: Reports: Diabetes, Type II - Infectious Disease History Infectious Disease History: Reports: Chicken Pox, Measles, Mumps - Past Surgical History HEENT Surgical History: Reports: Adenoidectomy, Tonsillectomy Neurological Surgical History: Reports: C-Spine (ACDF 02/23/2018) Social & Family History - Family History Family Medical History: Noncontributory - Tobacco Use Smoking Status *Q: Current Every Day Smoker Years of Tobacco use: 35 Packs/Tins Daily: 0.2 - Caffeine Use Caffeine Use: Reports: None - Alcohol Use Alcohol Use History: No - Recreational Drug Use Recreational Drug Use: No - Living Situation & Occupation Living situation: Reports: , with Spouse 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 GI/Abdominal: Reports: Constipation (chronic) ED EXAM, GENERAL - Physical Exam Exam: See Below Exam Limited By: No Limitations General Appearance: Alert, WD/WN, No Apparent Distress Eye Exam: Bilateral Eye: EOMI, Normal Inspection Ears: Normal External Exam, Hearing Grossly Normal Nose: Normal Inspection Throat/Mouth: Normal Inspection, Normal Lips, Normal Voice, No Airway Compromise Head: Atraumatic, Normocephalic Neck: Normal Inspection Respiratory/Chest: No Respiratory Distress, Lungs Clear, Normal Breath Sounds, No Accessory Muscle Use Cardiovascular: Normal Peripheral Pulses, Regular Rate, Rhythm, No Edema, No Gallop, No JVD, No Murmur, No Rub Peripheral Pulses: 4+: Radial (L), Radial (R) GI/Abdominal: Normal Bowel Sounds, Soft, Non-Tender, No Organomegaly, No Distention, No Abnormal Bruit, No Mass (Male) Exam: Deferred Rectal (Males) Exam: Deferred Back Exam: Normal Inspection, Full Range of Motion, NT Extremities: Normal Inspection, Normal Range of Motion, No Pedal Edema, Normal Capillary Refill Neurological: Alert, Oriented, Normal Cognition, No Motor/Sensory Deficits Psychiatric: Flat Affect Skin Exam: Warm, Dry, Intact, Normal Color, No Rash Course - Vital Signs Last Recorded V/S: Last Vital Signs Temp 37.0 C 10/24/19 04:15 Pulse 88 10/24/19 04:15 Resp 16 10/24/19 04:15 BP 112/70 10/24/19 04:15 Pulse Ox 99 10/24/19 04:15 - Re-Assessments/Exams Free Text/Narrative Re-Assessment/Exam: 10/24/19 04:48 That the patient ran out of his Percocet on or about 10/16/2019 makes sense, since that is when the patient started coming to the ED on a near-daily basis. 10/16/2019 is 6 days prior to when his prescription should have lasted him. Clearly, the patient is drug seeking. Just like last month, I suspect that he took his pills in excess of his prescription, running out early, around 6-8 days ago. Obviously, I am not going to be giving the patient any opioids. I was prepared to give the patient a shot of Toradol, however, he tells me that he is taking 800 mg of ibuprofen every 6 hours, with his most recent dosage around midnight, 4.75 hours ago, therefore it is too early to give him a shot of Toradol. The patient cursed at me and said that he was just going to leave the ED. He left without waiting for his discharge instructions. Departure - Departure Time of Disposition: 04:47 Disposition: Eloped 07 Condition: Good Clinical Impression: Drug-seeking behavior - Discharge Information *PRESCRIPTION DRUG MONITORING PROGRAM REVIEWED*: Yes *COPY OF PRESCRIPTION DRUG MONITORING REPORT IN PATIENT [place]: No Referrals: Peng Norman Jr, MD [Primary Care Provider] - Norm Burdick MD [Ordering Only Provider] - Tali Sequeira NP [Ordering Only Provider] - Forms: ED Department Discharge Sepsis Event Note - Evaluation Sepsis Screening Result: No Definite Risk - Focused Exam Vital Signs: Vital Signs Temp Pulse Resp BP Pulse Ox 10/24/19 04:15 37.0 C 88 16 112/70 99 Date Exam was Performed: 10/24/19 Time Exam was Performed: 05:17
== END 2019-10-24 04:50 | disposition left against medical advice (07) ==
LOC: JD.ED 04:03
CPT/HCPCS: 99281; 99283

== ENCOUNTER 2019-11-25 00:41 | Emergency (ER) | payer OTHER ==
[2019-11-25 00:49] VITALS: BP 126/85; PULSE 103
== END 2019-11-25 01:27 | disposition left against medical advice (07) ==
LOC: JD.ED 00:41
DX: Z53.21 Procedure and treatment not carried out due to patient leaving prior to being seen by health care provider (principal)

== ENCOUNTER 2019-12-05 10:15 | Inpatient (IN) | payer OTHER ==
[2019-12-05] MEDS ORDERED: Lactated Ringers 1,000 ML IV ONE (10:30)
[2019-12-05] MEDS ORDERED: Ondansetron 4 MG/2 ML SDV IVPUSH STA (10:30)
[2019-12-05] MEDS ORDERED: LORazepam 2 MG/ML SDV IVPUSH ONE (12:21)
[2019-12-05] MEDS ORDERED: Alum Hydrox/Mag Hydrox/Simeth 30 ML, Lidocaine 2% 15 ML PO ONE ×2 (12:29)
[2019-12-05] MEDS ORDERED: Pantoprazole 40 MG Vial IVPUSH ONE ×2 (13:02→13:50)
--- NOTE | 2019-12-05 13:24 | EDM.PDOC ---
ED HPI GENERAL MEDICAL PROBLEM - General Chief Complaint: Drug or Alcohol Abuse Stated Complaint: [facility] Time Seen by Provider: 12/05/19 12:21 Source of Information: Reports: Patient, RN Notes Reviewed History Limitations: Reports: No Limitations - History of Present Illness INITIAL COMMENTS - FREE TEXT/NARRATIVE: Patient is a 59-year-old male who presents via [facility] to the ED for the evaluation of alcohol detox. The patient notes that he had a last shot of vodka at around 830 this morning. He states that he normally drinks up to 175 of hard liquor every day, he states that he does like to drink vodka. His says that he can go through 1-1/2 L about every day and a half. He notes that for the past 3 weeks, he has been unable to get up out of bed on his own, and he feels generalized weakness. He states that he was on oxycodone for chronic pain as well, but he states he has not used this in about a month. His does corroborate the story. He also states he has not really had much to eat or drink in the past 3 weeks due to being in bed most days. Patient states he is enjoyed 1 period of sobriety in the past, however he cannot recount how long ago this is been. His states is been many many many years ago. He does note that he is been having some generalized black tarry stools for a while, and he states that his regular doctor is Dr. Peng Norman. He states he is nauseous, not having any blood in his vomit, no diarrhea, he is not having any chest pain or shortness of breath. He further denies any sort of history of alcohol withdrawal type seizure. - Related Data Allergies Allergy/AdvReac Type Severity Reaction Status Date / Time aspirin AdvReac Anxiety Verified 12/05/19 12:22 Home Meds: Home Meds Diltiazem [Tiazac] 360 mg PO DAILY 02/26/18 [History] ramipriL [Altace] 10 mg PO DAILY 02/26/18 [History] Tamsulosin [Flomax] 0.4 mg PO Q24H #15 cap.er 04/21/19 [Rx] glipiZIDE [Glucotrol] 10 mg PO BID #60 tablet 07/03/19 [Rx] Past Medical History Cardiovascular History: Reports: High Cholesterol, Hypertension Respiratory History: Reports: Pneumonia, Recurrent Gastrointestinal History: Reports: Chronic Constipation Genitourinary History: Reports: BPH Other Genitourinary History: pt self caths for bladder issues and prostate Musculoskeletal History: Reports: Neck Pain, Chronic, Osteoarthritis Other Musculoskeletal History: neck surgery Neurological History: Reports: Neuropathy, Peripheral Psychiatric History: Reports: Anxiety Endocrine/Metabolic History: Reports: Diabetes, Type II - Infectious Disease History Infectious Disease History: Reports: Chicken Pox, Measles, Mumps - Past Surgical History HEENT Surgical History: Reports: Adenoidectomy, Tonsillectomy Neurological Surgical History: Reports: C-Spine Social & Family History - Family History Family Medical History: Noncontributory - Tobacco Use Smoking Status *Q: Never Smoker - Caffeine Use Caffeine Use: Reports: None - Alcohol Use Date of Last Drink: 12/05/19 Time of Last Drink: 08:45 - Recreational Drug Use Recreational Drug Use: Yes Drug Use in Last 12 Months: Yes Recreational Drug Type: Reports: Oxycodone Recreational Drug Use Frequency: Daily Recreational Drug Last Use: 11/04 - Living Situation & Occupation Living situation: Reports: , with Spouse 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 Denies: Fever, Chills Respiratory: Denies: Shortness of Breath, Cough Cardiovascular: Denies: Chest Pain GI/Abdominal: Reports: Black Stool, Decreased Appetite, Nausea, Other (abdomen distension). Denies: Abdominal Pain, Constipation, Diarrhea, Hematemesis, Vomiting : Denies: Dysuria Neurological: Denies: Headache Psychiatric: Reports: Anxiety (very mild). Denies: Cravings, Depression, Suicidal Ideation ED EXAM, GENERAL - Physical Exam Exam: See Below Exam Limited By: No Limitations General Appearance: Alert, WD/WN, No Apparent Distress (pt has a very slight baseline tremor, presumably from alcohol detox) Eye Exam: Bilateral Eye: EOMI, Normal Inspection, PERRL Throat/Mouth: Normal Inspection, Normal Lips, Normal Gums, Normal Oropharynx, Normal Voice, No Airway Compromise Head: Atraumatic, Normocephalic Neck: Normal Inspection Respiratory/Chest: No Respiratory Distress, Lungs Clear, Normal Breath Sounds, No Accessory Muscle Use, Chest Non-Tender Cardiovascular: Normal Peripheral Pulses, Regular Rate, Rhythm, No Edema, No Murmur Peripheral Pulses: 3+: Radial (L), Radial (R) GI/Abdominal: Normal Bowel Sounds, Soft, No Mass, Distended (mild, generalized) , Tender (slight tenderness) Rectal (Males) Exam: Normal Exam, Normal Rectal Tone, Prostate Normal, Heme + Stool. No: Black Stool, Bloody Stool Extremities: Normal Inspection, Normal Capillary Refill Neurological: Alert, Oriented, Normal Cognition, No Motor/Sensory Deficits Psychiatric: Normal Affect, Normal Mood (mild baseline shakes, presumably d/t alcohol detox) Skin Exam: Warm, Dry, Intact, No Rash, Pallor (generalized) Course - Vital Signs Last Recorded V/S: Last Vital Signs Temp 97.8 F 12/05/19 10:24 Pulse 113 H 12/05/19 10:24 Resp 16 12/05/19 10:24 BP 118/78 12/05/19 11:00 Pulse Ox 100 12/05/19 10:24 - Orders/Labs/Meds Orders: Active Orders 24 hr Category Date Time Status Hemoccult [Fecal Occult Blood Collection] [RC] Care 12/05/19 13:51 Active ASDIRECTED CULTURE URINE [RM] Routine Lab 12/05/19 12:50 Ordered Sodium Chloride 0.9% [Saline Flush] Med 12/05/19 13:45 Active 10 ml FLUSH ONETIME PRN Medication Orders Sodium Chloride (Saline Flush) 10 ml FLUSH ONETIME PRN PRN Reason: IV FLUSH Last Admin: 12/05/19 13:49 Dose: 10 ml Labs: Laboratory Tests 12/05/19 12/05/19 12/05/19 Range/Units 10:30 10:30 10:34 WBC 8.86 (4.23-9.07) K/mm3 RBC 2.43 L (4.63-6.08) M/mm3 Hgb 8.4 L D (13.7-17.5) gm/dl Hct 24.4 L (40.1-51.0) % MCV 100.4 H D (79.0-92.2) fl MCH 34.6 H (25.7-32.2) pg MCHC 34.4 (32.2-35.5) g/dl RDW Std Deviation 46.9 H (35.1-43.9) fL Plt Count 158 L (163-337) K/mm3 MPV 10.2 (9.4-12.3) fl Neutrophils % (Manual) 86 H (40-60) % Band Neutrophils % 0 (0-10) % Lymphocytes % (Manual) 8 L (20-40) % Atypical Lymphs % 0 % Monocytes % (Manual) 5 (2-10) % Eosinophils % (Manual) 1 (0.8-7.0) % Basophils % (Manual) 0 L (0.2-1.2) Platelet Estimate Adequate Anisocytosis 1+ slight Macrocytosis Moderate RBC Morph Comment Not Reportable PT 11.0 (9.7-12.0) SECONDS INR 1.01 APTT 27 (22-31) SECONDS Sodium 130 L (136-145) mEq/L Potassium 3.8 (3.5-5.1) mEq/L Chloride 94 L (98-107) mEq/L Carbon Dioxide 27 (21-32) mEq/L Anion Gap 12.8 (5-15) BUN 24 H (7-18) mg/dL Creatinine 0.8 (0.7-1.3) mg/dL Est Cr Clr Drug Dosing 117.02 mL/min Estimated GFR (MDRD) > 60 (>60) mL/min BUN/Creatinine Ratio 30.0 H (14-18) Glucose 217 H (74-106) mg/dL Calcium 8.7 (8.5-10.1) mg/dL Total Bilirubin 1.3 H (0.2-1.0) mg/dL AST 24 (15-37) U/L ALT 28 (16-63) U/L Alkaline Phosphatase 68 (46-116) U/L Total Protein 5.9 L (6.4-8.2) g/dl Albumin 2.8 L (3.4-5.0) g/dl Globulin 3.1 gm/dL Albumin/Globulin Ratio 0.9 L (1-2) Urine Color (Yellow) Urine Appearance (Clear) Urine pH (5.0-8.0) Ur Specific [place] (1.005-1.030) Urine Protein (Negative) Urine Glucose (UA) (Negative) Urine Ketones (Negative) Urine Occult Blood (Negative) Urine Nitrite (Negative) Urine Bilirubin (Negative) Urine Urobilinogen (0.2-1.0) Ur Leukocyte Esterase (Negative) Urine RBC (0-5) /hpf Urine WBC (0-5) /hpf Ur Squamous Epith Cells (0-5) /hpf Amorphous Sediment (NOT SEEN) /hpf Urine Bacteria (FEW) /hpf Urine Mucus (FEW) /hpf Urine Opiates Screen (FOMQVY=112) Ur Buprenorphine Scrn (CUTOFF=10) Ur Oxycodone Screen (FCP3QU=233) Urine Methadone Screen (KAJ8VB=194) Ur Propoxyphene Screen (GYNEFA=193) Ur Barbiturates Screen (KRGAQI=757) Ur Tricyclics Screen (DITGMH=787) Ur Phencyclidine Scrn (CUTOFF=25) Ur Amphetamine Screen (KZARWG=513) U Methamphetamines Scrn (FJAMAW=447) U Benzodiazepines Scrn (JJJBVC=887) U Cocaine Metab Screen (XIZFZZ=507) U Marijuana (THC) Screen (CUTOFF=50) Ethyl Alcohol 0.00 (0.00) gm% 12/05/19 12/05/19 Range/Units 11:00 11:00 WBC (4.23-9.07) K/mm3 RBC (4.63-6.08) M/mm3 Hgb (13.7-17.5) gm/dl Hct (40.1-51.0) % MCV (79.0-92.2) fl MCH (25.7-32.2) pg MCHC (32.2-35.5) g/dl RDW Std Deviation (35.1-43.9) fL Plt Count (163-337) K/mm3 MPV (9.4-12.3) fl Neutrophils % (Manual) (40-60) % Band Neutrophils % (0-10) % Lymphocytes % (Manual) (20-40) % Atypical Lymphs % % Monocytes % (Manual) (2-10) % Eosinophils % (Manual) (0.8-7.0) % Basophils % (Manual) (0.2-1.2) Platelet Estimate Anisocytosis Macrocytosis RBC Morph Comment PT (9.7-12.0) SECONDS INR APTT (22-31) SECONDS Sodium (136-145) mEq/L Potassium (3.5-5.1) mEq/L Chloride (98-107) mEq/L Carbon Dioxide (21-32) mEq/L Anion Gap (5-15) BUN (7-18) mg/dL Creatinine (0.7-1.3) mg/dL Est Cr Clr Drug Dosing mL/min Estimated GFR (MDRD) (>60) mL/min BUN/Creatinine Ratio (14-18) Glucose (74-106) mg/dL Calcium (8.5-10.1) mg/dL Total Bilirubin (0.2-1.0) mg/dL AST (15-37) U/L ALT (16-63) U/L Alkaline Phosphatase (46-116) U/L Total Protein (6.4-8.2) g/dl Albumin (3.4-5.0) g/dl Globulin gm/dL Albumin/Globulin Ratio (1-2) Urine Color Yellow (Yellow) Urine Appearance Cloudy H (Clear) Urine pH 8.5 H (5.0-8.0) Ur Specific [place] 1.020 (1.005-1.030) Urine Protein 1+ H (Negative) Urine Glucose (UA) Negative (Negative) Urine Ketones 1+ H (Negative) Urine Occult Blood Negative (Negative) Urine Nitrite Negative (Negative) Urine Bilirubin Negative (Negative) Urine Urobilinogen 1.0 (0.2-1.0) Ur Leukocyte Esterase Trace H (Negative) Urine RBC 0-5 (0-5) /hpf Urine WBC 5-10 H (0-5) /hpf Ur Squamous Epith Cells Not seen (0-5) /hpf Amorphous Sediment Many H (NOT SEEN) /hpf Urine Bacteria Few (FEW) /hpf Urine Mucus Not seen (FEW) /hpf Urine Opiates Screen Negative (HGPJHZ=722) Ur Buprenorphine Scrn Negative (CUTOFF=10) Ur Oxycodone Screen Negative (OWL0AV=753) Urine Methadone Screen Negative (XQY4JF=648) Ur Propoxyphene Screen Negative (IWQVHK=498) Ur Barbiturates Screen Negative (UUFJIN=870) Ur Tricyclics Screen Negative (HCSRSB=117) Ur Phencyclidine Scrn Negative (CUTOFF=25) Ur Amphetamine Screen Negative (ZBTZSK=186) U Methamphetamines Scrn Negative (YZBMME=429) U Benzodiazepines Scrn Negative (DXHPJZ=626) U Cocaine Metab Screen Negative (YAGYIO=599) U Marijuana (THC) Screen Negative (CUTOFF=50) Ethyl Alcohol (0.00) gm% Meds: Medications Generic Name Dose Route Start Last Admin Trade Name Freq PRN Reason Stop Dose Admin Sodium Chloride 10 ml 12/05/19 13:45 12/05/19 13:49 Saline Flush FLUSH 10 ml ONETIME PRN Administration IV FLUSH Discontinued Medications Generic Name Dose Route Start Last Admin Trade Name Freq PRN Reason Stop Dose Admin Al Hydroxide/Mg Hydroxide 30 0 ml 12/05/19 12:29 12/05/19 12:36 ml/ Lidocaine HCl 15 ml PO 12/05/19 12:30 45 ml ONETIME ONE Administration Lactated Ringer's 1,000 mls @ 999 mls/hr 12/05/19 10:30 12/05/19 10:37 Ringers, Lactated IV 12/05/19 11:30 999 mls/hr .BOLUS ONE Administration Iopamidol 50 ml 12/05/19 13:45 12/05/19 13:49 Isovue-300 (61%) IVPUSH 12/05/19 13:46 50 ml ONETIME ONE Administration Iopamidol 100 ml 12/05/19 13:45 12/05/19 13:49 Isovue-300 (61%) IVPUSH 12/05/19 13:46 100 ml ONETIME ONE Administration Lorazepam 1 mg 12/05/19 12:21 12/05/19 12:30 Ativan IVPUSH 12/05/19 12:22 1 mg ONETIME ONE Administration Ondansetron HCl 4 mg 12/05/19 10:30 12/05/19 10:36 Zofran IVPUSH 12/05/19 10:31 4 mg ONETIME STA Administration Pantoprazole Sodium 40 mg 12/05/19 13:02 12/05/19 13:31 Protonix Iv IVPUSH 12/05/19 13:03 40 mg ONETIME ONE Administration Pantoprazole Sodium 40 mg 12/05/19 13:50 12/05/19 14:02 Protonix Iv IVPUSH 12/05/19 13:51 40 mg ONETIME ONE Administration - Re-Assessments/Exams Free Text/Narrative Re-Assessment/Exam: 12/05/19 13:25 Patient presents to the ED for evaluation of alcohol detox. Labs were obtained at time of triage, and this demonstrated a low hemoglobin of 8.4, a low sodium of 130, normal liver enzymes, the bili was elevated at 1.3, albumin is low at 2.8, BUN is also elevated at 24. Due to the patient's history I do believe that he is suffering from a bleeding ulcer of sorts, he has not had any hematemesis reported, but only black stools As I do believe the patient would benefit from medically assisted alcohol detox, I did call Dr. Austin for possible admission, and he requested a PT/INR be attached to the labs, and have surgery consulted on the case. So I did call Dr. Haddad our surgeon on-call, and she requested a CT with IV contrast for further evaluation, if his Hemoccult is positive, then she said she could likely scope him however if the Hemoccult is negative, she believes that the derangement in the bilirubin and albumin are due to the patient's liver dysfunction due to chronic alcoholism. And that she would not need to scope him at this time. 12/05/19 13:50 Hemoccult was positive, Dr. Haddad was made notified, she states she will be in to see the patient for possible scope. CT is still pending at this time. I did call Dr. Austin and make him aware of the situation, he accepts the patient for ICU admission as well. Requested another 40 mg of Protonix to be given on top of the 40 he had already been given. 12/05/19 15:04 CT mentioned some air in the bladder, and is wondering about recent instrumentation. It was made known to me that the patient does self cath. Otherwise there is some fatty infiltration of the liver, but no other acute processes noted. Departure - Departure Time of Disposition: 13:51 Disposition: Admitted As Inpatient 67 Condition: Fair Clinical Impression: Alcohol withdrawal Qualifiers: Complication of substance-induced condition: uncomplicated Qualified Code(s): F10.230 - Alcohol dependence with withdrawal, uncomplicated GI bleed Qualifiers: GI bleed type/associated pathology: unspecified gastrointestinal hemorrhage type Qualified Code(s): K92.2 - Gastrointestinal hemorrhage, unspecified - Discharge Information *PRESCRIPTION DRUG MONITORING PROGRAM REVIEWED*: No *COPY OF PRESCRIPTION DRUG MONITORING REPORT IN PATIENT [place]: No Sepsis Event Note - Evaluation Sepsis Screening Result: No Definite Risk - Focused Exam Vital Signs: Vital Signs Temp Pulse Resp BP Pulse Ox 12/05/19 11:00 118/78 12/05/19 10:24 97.8 F 113 H 16 100 Date Exam was Performed: 12/05/19 Time Exam was Performed: 15:04 - My Orders Last 24 Hours: My Active Orders 12/05/19 12:50 CULTURE URINE [RM] Routine 12/05/19 13:45 Sodium Chloride 0.9% [Saline Flush] 10 ml FLUSH ONETIME PRN 12/05/19 13:51 Hemoccult [Fecal Occult Blood Collection] [RC] ASDIRECTED - Assessment/Plan Last 24 Hours: My Active Orders 12/05/19 12:50 CULTURE URINE [RM] Routine 12/05/19 13:45 Sodium Chloride 0.9% [Saline Flush] 10 ml FLUSH ONETIME PRN 12/05/19 13:51 Hemoccult [Fecal Occult Blood Collection] [RC] ASDIRECTED
[2019-12-05] MEDS ORDERED: Iopamidol 612 MG/ML 100 ML Bottle IVPUSH ONE (13:45)
[2019-12-05] MEDS ORDERED: Sodium Chloride 0.9% 10 ML Syringe FLUSH PRN (13:45)
[2019-12-05] MEDS ORDERED: Iopamidol 612 MG/ML 50 ML SDV IVPUSH ONE (13:45)
--- NOTE | 2019-12-05 14:57 | CT ---
CT abdomen and pelvis Technique: Multiple axial sections were obtained from above the dome of the diaphragm inferiorly through the pubic symphysis. Intravenous contrast was utilized. No oral contrast has been given. Comparison: No prior CT abdomen or pelvis exam is available. Findings: Small hiatal hernia is seen with wall thickening within the distal esophagus. Findings most likely represent change from reflux esophagitis. Visualized lung bases show nothing acute. Fatty infiltration is seen throughout the liver. Spleen appears within normal limits. Adrenal glands show no nodule. Pancreas is within normal limits. Kidneys show symmetric contrast enhancement without hydronephrosis or mass. Aorta shows no aneurysm. No retroperitoneal adenopathy is seen. Gallbladder contains no calcified gallstones. No mesenteric abnormalities are seen. Increased stool is noted within the rectum compatible with mild fecal impaction. Appendix not visualized with certainty. No free fluid or inflammatory change is seen. Bone window settings were reviewed show mild scattered degenerative change throughout the spine. Delayed images show contrast within the distal ureters and within the bladder. There is a urachal remnant off the superior bladder which contains some air presumably from recent bladder instrumentation. Impression: 1. Fatty infiltration within the liver. 2. Urachal remanent off the superior bladder. This urachal remanent contains some air presumably from recent bladder instrumentation. Please correlate. 3. Increased stool within the rectum compatible with fecal impaction. 4. Small hiatal hernia with wall thickening within the distal esophagus presumably from reflux esophagitis. 5. No additional abnormality is appreciated on CT study of the abdomen and pelvis. Diagnostic code #3 This report was dictated in [place] Standard Time
[2019-12-05] MEDS ORDERED: Lactated Ringers 1,000 ML IV SCH (16:15)
[2019-12-05] MEDS ORDERED: Folic Acid 50 MG/10 ML MDV IV SCH (16:30)
--- NOTE | 2019-12-05 16:30 | PCM.HP.2 ---
H&P History of Present Illness - General Date of Service: 12/05/19 Admit Problem/Dx: Admission Diagnosis/Problem Admission Diagnosis/Problem Alcohol withdrawal syndrome - History of Present Illness Initial Comments - Free Text/Narative: Terrance is a 59-year-old male with a history of type II diabetes, hypertension, neuropathy, neurogenic bladder with prostatic hypertrophy and self catheterizes his bladder, chronic neck pain who presented to the emergency room via EMS with a chief complaint of weakness, presyncope, loose stools. He is a poor historian , and his is with him trying to clarify his history. Apparently over the last few weeks he has had increasing difficulty getting out of bed or walking downstairs. He gets dizzy and weak. He drinks 1 to 1-1/2 L of vodka a day for several years. He started drinking heavily in 2004 after his mother's . Patient has been seen in our emergency department dozens of times and when I asked him why he states it was for narcotics. Patient's last opioid use was a month ago. Approximately 1 week ago he became stool incontinent and had vomiting and poor oral intake. He has had loose incontinent stools since . After not being able to get up his called EMS. His last shot of vodka was approximately 8:00 this morning. Patient states that when he withdraws from alcohol he generally has the shakes, but has not had seizures in the past. Apparently recently he has been having some hallucinations. He does complain of numbness and tingling in his extremities. He does complain of black stools. In the emergency room a rectal exam was performed and it did show positive for occult blood. Patient states that he had a severe bladder infection year ago and he has self catheterized since. He is unsure if he has an obstructive versus neurogenic bladder. In the emergency room patient was found to have a hemoglobin of 8.[address] scan was ordered which found increased stool within the rectum compatible with fecal impaction, hiatal hernia, fatty liver, and urachal remnant of the superior bladder. Initial emergency department labs: WBC 8.86, hemoglobin 8.4, platelets 158, PT 11, INR 1.01, PTT 27, sodium 130, potassium 3.8, chloride 94, carbon dioxide 27 , anion gap 13, BUN 24, creatinine 0.8, BUN to creatinine ratio 30, glucose 217 , total bilirubin 1.3, AST 24, ALT 28, alkaline phosphatase 68, albumin 2.8 - Related Data Allergies/Adverse Reactions: Allergies Allergy/AdvReac Type Severity Reaction Status Date / Time aspirin AdvReac Anxiety Verified 12/05/19 16:31 Home Medications: Home Meds Diltiazem [Tiazac] 360 mg PO DAILY 02/26/18 [History] ramipriL [Altace] 10 mg PO DAILY 02/26/18 [History] Tamsulosin [Flomax] 0.4 mg PO Q24H #15 cap.er 04/21/19 [Rx] glipiZIDE [Glucotrol] 10 mg PO BID #60 tablet 07/03/19 [Rx] Past Medical History Cardiovascular History: Reports: High Cholesterol, Hypertension Respiratory History: Reports: Pneumonia, Recurrent Gastrointestinal History: Reports: Chronic Constipation Genitourinary History: Reports: BPH Other Genitourinary History: pt self caths for bladder issues and prostate Musculoskeletal History: Reports: Neck Pain, Chronic, Osteoarthritis Other Musculoskeletal History: neck surgery Neurological History: Reports: Neuropathy, Peripheral Psychiatric History: Reports: Anxiety Endocrine/Metabolic History: Reports: Diabetes, Type II - Infectious Disease History Infectious Disease History: Reports: Chicken Pox, Measles, Mumps - Past Surgical History HEENT Surgical History: Reports: Adenoidectomy, Tonsillectomy Neurological Surgical History: Reports: C-Spine Social & Family History - Family History Family Medical History: Noncontributory - Tobacco Use Smoking Status *Q: Never Smoker - Caffeine Use Caffeine Use: Reports: None - Alcohol Use Date of Last Drink: 12/05/19 Time of Last Drink: 08:45 - Recreational Drug Use Recreational Drug Use: Yes Drug Use in Last 12 Months: Yes Recreational Drug Type: Reports: Oxycodone Recreational Drug Use Frequency: Daily Recreational Drug Last Use: 11/04 - Living Situation & Occupation Living situation: Reports: , with Spouse 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 Exam - Exam Exam: See Below - Vital Signs Vital Signs: Last Vital Signs Temp 98.6 F 12/05/19 15:50 Pulse 113 H 12/05/19 10:24 Resp 18 12/05/19 15:50 BP 125/91 H 12/05/19 15:50 Pulse Ox 100 12/05/19 15:50 Weight: 230 lb - Exam Quality Assessment: No: Supplemental Oxygen General: Alert, Oriented, Cooperative HEENT: Conjunctiva Clear, Hearing Intact, Pupils Equal. No: Mucosa Moist & [place] (dry) Neck: Supple, Trachea Midline, 2 Lungs: Clear to Auscultation, Normal Respiratory Effort Cardiovascular: Regular Rate, Regular Rhythm, Systolic Murmur GI/Abdominal Exam: Normal Bowel Sounds, Soft, Non-Tender, No Organomegaly, No Distention, No Abnormal Bruit, No Mass Rectal (Males) Exam: Deferred (Down in ED. Reportedly guaiac positive.) Back Exam: Normal Inspection Extremities: Normal Inspection, Normal Range of Motion, Non-Tender, No Pedal Edema, Normal Capillary Refill Peripheral Pulses: 2+: Posterior Tibial (L), Posterior Tibial (R), Dorsalis Pedis (L), Dorsalis Pedis (R) Skin: Warm, Dry, Intact Neurological: Cranial Nerves Intact Neuro Extensive - Mental Status: Alert, Oriented x3, Normal Cognition, Memory Intact. No: Normal Mood/Affect (Depressed) Neuro Extensive - Motor, Sensory, Reflexes: CN II-XII Intact Psychiatric: Alert, Depressed - Patient Data Lab Results Last 24 hrs: Laboratory Results - last 24 hr 12/05/19 12/05/19 12/05/19 Range/Units 10:30 10:30 10:34 WBC 8.86 (4.23-9.07) K/mm3 RBC 2.43 L (4.63-6.08) M/mm3 Hgb 8.4 L D (13.7-17.5) gm/dl Hct 24.4 L (40.1-51.0) % MCV 100.4 H D (79.0-92.2) fl MCH 34.6 H (25.7-32.2) pg MCHC 34.4 (32.2-35.5) g/dl RDW Std Deviation 46.9 H (35.1-43.9) fL Plt Count 158 L (163-337) K/mm3 MPV 10.2 (9.4-12.3) fl Neutrophils % (Manual) 86 H (40-60) % Band Neutrophils % 0 (0-10) % Lymphocytes % (Manual) 8 L (20-40) % Atypical Lymphs % 0 % Monocytes % (Manual) 5 (2-10) % Eosinophils % (Manual) 1 (0.8-7.0) % Basophils % (Manual) 0 L (0.2-1.2) Platelet Estimate Adequate Anisocytosis 1+ slight Macrocytosis Moderate RBC Morph Comment Not Reportable PT 11.0 (9.7-12.0) SECONDS INR 1.01 APTT 27 (22-31) SECONDS Sodium 130 L (136-145) mEq/L Potassium 3.8 (3.5-5.1) mEq/L Chloride 94 L (98-107) mEq/L Carbon Dioxide 27 (21-32) mEq/L Anion Gap 12.8 (5-15) BUN 24 H (7-18) mg/dL Creatinine 0.8 (0.7-1.3) mg/dL Est Cr Clr Drug Dosing 117.02 mL/min Estimated GFR (MDRD) > 60 (>60) mL/min BUN/Creatinine Ratio 30.0 H (14-18) Glucose 217 H (74-106) mg/dL Calcium 8.7 (8.5-10.1) mg/dL Total Bilirubin 1.3 H (0.2-1.0) mg/dL AST 24 (15-37) U/L ALT 28 (16-63) U/L Alkaline Phosphatase 68 (46-116) U/L Total Protein 5.9 L (6.4-8.2) g/dl Albumin 2.8 L (3.4-5.0) g/dl Globulin 3.1 gm/dL Albumin/Globulin Ratio 0.9 L (1-2) Urine Color (Yellow) Urine Appearance (Clear) Urine pH (5.0-8.0) Ur Specific [place] (1.005-1.030) Urine Protein (Negative) Urine Glucose (UA) (Negative) Urine Ketones (Negative) Urine Occult Blood (Negative) Urine Nitrite (Negative) Urine Bilirubin (Negative) Urine Urobilinogen (0.2-1.0) Ur Leukocyte Esterase (Negative) Urine RBC (0-5) /hpf Urine WBC (0-5) /hpf Ur Squamous Epith Cells (0-5) /hpf Amorphous Sediment (NOT SEEN) /hpf Urine Bacteria (FEW) /hpf Urine Mucus (FEW) /hpf Urine Opiates Screen (IQYRCM=589) Ur Buprenorphine Scrn (CUTOFF=10) Ur Oxycodone Screen (EDH5GZ=514) Urine Methadone Screen (BCT3VL=699) Ur Propoxyphene Screen (ANMZMB=970) Ur Barbiturates Screen (QYKXLI=666) Ur Tricyclics Screen (AJZVDJ=911) Ur Phencyclidine Scrn (CUTOFF=25) Ur Amphetamine Screen (AMHBND=290) U Methamphetamines Scrn (KXCKNQ=439) U Benzodiazepines Scrn (YHCQOT=612) U Cocaine Metab Screen (RLZTBI=553) U Marijuana (THC) Screen (CUTOFF=50) Ethyl Alcohol 0.00 (0.00) gm% Blood Type Gel Antibody Screen 12/05/19 12/05/19 12/05/19 Range/Units 10:37 11:00 11:00 WBC (4.23-9.07) K/mm3 RBC (4.63-6.08) M/mm3 Hgb (13.7-17.5) gm/dl Hct (40.1-51.0) % MCV (79.0-92.2) fl MCH (25.7-32.2) pg MCHC (32.2-35.5) g/dl RDW Std Deviation (35.1-43.9) fL Plt Count (163-337) K/mm3 MPV (9.4-12.3) fl Neutrophils % (Manual) (40-60) % Band Neutrophils % (0-10) % Lymphocytes % (Manual) (20-40) % Atypical Lymphs % % Monocytes % (Manual) (2-10) % Eosinophils % (Manual) (0.8-7.0) % Basophils % (Manual) (0.2-1.2) Platelet Estimate Anisocytosis Macrocytosis RBC Morph Comment PT (9.7-12.0) SECONDS INR APTT (22-31) SECONDS Sodium (136-145) mEq/L Potassium (3.5-5.1) mEq/L Chloride (98-107) mEq/L Carbon Dioxide (21-32) mEq/L Anion Gap (5-15) BUN (7-18) mg/dL Creatinine (0.7-1.3) mg/dL Est Cr Clr Drug Dosing mL/min Estimated GFR (MDRD) (>60) mL/min BUN/Creatinine Ratio (14-18) Glucose (74-106) mg/dL Calcium (8.5-10.1) mg/dL Total Bilirubin (0.2-1.0) mg/dL AST (15-37) U/L ALT (16-63) U/L Alkaline Phosphatase (46-116) U/L Total Protein (6.4-8.2) g/dl Albumin (3.4-5.0) g/dl Globulin gm/dL Albumin/Globulin Ratio (1-2) Urine Color Yellow (Yellow) Urine Appearance Cloudy H (Clear) Urine pH 8.5 H (5.0-8.0) Ur Specific [place] 1.020 (1.005-1.030) Urine Protein 1+ H (Negative) Urine Glucose (UA) Negative (Negative) Urine Ketones 1+ H (Negative) Urine Occult Blood Negative (Negative) Urine Nitrite Negative (Negative) Urine Bilirubin Negative (Negative) Urine Urobilinogen 1.0 (0.2-1.0) Ur Leukocyte Esterase Trace H (Negative) Urine RBC 0-5 (0-5) /hpf Urine WBC 5-10 H (0-5) /hpf Ur Squamous Epith Cells Not seen (0-5) /hpf Amorphous Sediment Many H (NOT SEEN) /hpf Urine Bacteria Few (FEW) /hpf Urine Mucus Not seen (FEW) /hpf Urine Opiates Screen Negative (TTFQGY=949) Ur Buprenorphine Scrn Negative (CUTOFF=10) Ur Oxycodone Screen Negative (XBA3EJ=673) Urine Methadone Screen Negative (MMF9UK=028) Ur Propoxyphene Screen Negative (CVDVAM=465) Ur Barbiturates Screen Negative (UGDCFA=778) Ur Tricyclics Screen Negative (IBPDSS=879) Ur Phencyclidine Scrn Negative (CUTOFF=25) Ur Amphetamine Screen Negative (VUNNQV=718) U Methamphetamines Scrn Negative (GQNXVU=028) U Benzodiazepines Scrn Negative (YNQUVC=525) U Cocaine Metab Screen Negative (KWGTCR=122) U Marijuana (THC) Screen Negative (CUTOFF=50) Ethyl Alcohol (0.00) gm% Blood Type A NEGATIVE Gel Antibody Screen Negative Result Diagrams: 12/05/19 16:33 12/05/19 10:30 Sepsis Event Note - Evaluation Sepsis Screening Result: No Definite Risk - Focused Exam Vital Signs: Vital Signs Temp Pulse Resp BP BP Pulse Ox 12/05/19 15:50 98.6 F 18 125/91 H 100 12/05/19 11:00 118/78 12/05/19 10:24 97.8 F 113 H 16 100 Date Exam was Performed: 12/05/19 Time Exam was Performed: 17:26 Problem List Initiated/Reviewed/Updated: Yes Orders Last 24hrs: Active Orders 24 hr Category Date Time Status Patient Status [ADT] Routine ADT 12/05/19 15:06 Active Antiembolic Devices [RC] PER UNIT ROUTINE Care 12/05/19 16:17 Ordered Blood Glucose Check, Bedside [RC] QIDACANDBED Care 12/05/19 16:23 Ordered CIWAA Assessment [RC] Q1H Care 12/05/19 16:21 Ordered Hemoccult [Fecal Occult Blood Collection] [RC] Care 12/05/19 13:51 Active ASDIRECTED Oxygen Therapy [RC] PRN Care 12/05/19 16:15 Ordered Up With Assistance [RC] ASDIRECTED Care 12/05/19 16:15 Ordered VTE/DVT Education [RC] PER UNIT ROUTINE Care 12/05/19 16:15 Ordered Vital Signs [RC] Q4H Care 12/05/19 16:15 Ordered Consult to Case Management/Mirror Maker [CONS] Cons 12/05/19 16:15 Ordered Routine Consult to Shipfitter Helper [CONS] Routine Cons 12/05/19 16:15 Ordered Consult to Spiritual Care [CONS] Routine Cons 12/05/19 16:15 Ordered OT Evaluation and Treatment [CONS] Routine Cons 12/05/19 16:15 Ordered PT Evaluation and Treatment [CONS] Routine Cons 12/05/19 16:15 Ordered Nothing per Oral Now Diet [DIET] Diet 12/05/19 Dinner Ordered CBC WITH AUTO DIFF [HEME] AM Lab 12/06/19 05:11 Ordered COMPREHENSIVE METABOLIC PN,CMP [CHEM] AM Lab 12/06/19 05:11 Ordered CULTURE URINE [RM] Routine Lab 12/05/19 12:50 Ordered HEMOGLOBIN/HEMATOCRIT,HH [HEME] Stat Lab 12/05/19 15:56 Ordered MAGNESIUM [CHEM] AM Lab 12/06/19 05:11 Ordered PATIENT RETYPE [BBK] Routine Lab 12/05/19 15:40 Ordered PHOSPHORUS [CHEM] AM Lab 12/06/19 05:11 Ordered Folic Acid Med 12/05/19 16:30 Ordered 1 mg IV DAILY Insulin Lispro [HumaLOG] Med 12/05/19 17:00 Ordered See Protocol SUBCUT QIDACANDBED LORazepam [Ativan] Med 12/05/19 16:21 Ordered See Protocol IVPUSH Q1H PRN Lactated Ringers @ 125 MLS/HR(1000ml) Med 12/05/19 16:15 Ordered Lactated Ringers [Ringers, Lactated] 1,000 ml IV ASDIRECTED Sodium Chloride 0.9% [Saline Flush] Med 12/05/19 13:45 Active 10 ml FLUSH ONETIME PRN Thiamine [Vitamin B-1] Med 12/05/19 16:30 Ordered 100 mg IVPUSH Q8H Sequential Compression Device [OM.PC] Per Unit Routine Oth 12/05/19 16:15 Ordered Resuscitation Status Routine Resus Stat 12/05/19 16:15 Ordered Medication Orders Folic Acid (Folic Acid) 1 mg IV DAILY CORTEZ Lactated Ringer's (Ringers, Lactated) 1,000 mls @ 125 mls/hr IV ASDIRECTED CORTEZ Insulin Human Lispro (Humalog) 0 unit SUBCUT QIDACANDBED CORTEZ; Protocol Lorazepam (Ativan) 0 mg IVPUSH Q1H PRN; Protocol PRN Reason: Withdrawal Symptoms Sodium Chloride (Saline Flush) 10 ml FLUSH ONETIME PRN PRN Reason: IV FLUSH Last Admin: 12/05/19 13:49 Dose: 10 ml Thiamine HCl (Vitamin B-1) 100 mg IVPUSH Q8H [facility] Assessment/Plan Comment:: Assessment * Lower extremity weakness likely due to alcoholism * 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 * Last shot of vodka at 0800 hrs. * No history of alcohol induced seizures * Gastrointestinal bleeding * Positive guaiac stool * Significant drop in hemoglobin since October from 14.3-8.4 * Emergency room department consulted surgery * Type and screen in the emergency room * Multifactorial anemia * Hemoglobin 8.4 * Guaiac positive stools * Macrocytosis * Fecal impaction with overflow diarrhea * Large amount of stool in rectum found on CT * History of opioid abuse * Last opioid 1 month ago * Chronic neck pain * Avoid opiates secondary to history of opioid abuse * Avoid NSAIDs secondary to GI bleed * Type 2 diabetes * Unknown hemoglobin A1c * Home med: Glipizide * Hypertension * Home meds: Diltiazem and ramipril * Urinary retention * Unknown type * Self catheterizes Plan * Admit to ICU * N.p.o. * Consult surgery: For GI bleed and recommendations on treatment of fecal impaction in light of the gastrointestinal bleeding. * Follow H&H every 6 hours * LR 125 mL an hour * Protonix 40 mg IV twice daily * Thiamine 100 mg IV every 8 hours, folic acid 1 mg daily * CIWAA assessments every hour * Ativan protocol * CBC, CMP, and magnesium in the morning * TSH, hemoglobin A1c, ferritin, iron panel, vitamin B12 * PT, OT, spiritual care, discharge planning, drug abuse social worker consult * Sliding scale insulin * Barrios catheter secondary to urinary retention * VTE prophylaxis with SCDs. Chemoprophylaxis contraindicated secondary to GI bleed. * CODE STATUS: Full code * Length of stay difficult to determine at this time. - Mortality Measure Prognosis:: Good
[2019-12-05] MEDS ORDERED: Thiamine 200 MG/2 ML MDV IVPUSH SCH (17:00)
[2019-12-05] MEDS: Insulin Lispro 100 Units/ML 3 ML Vial SUBCUT SCH ×2 (17:01→21:04)
[2019-12-05] MEDS: LORazepam 2 MG/ML SDV IVPUSH PRN ×4 (17:24→23:07)
--- NOTE | 2019-12-05 19:56 | PCM.CONS ---
H&P History of Present Illness - General Date of Service: 12/05/19 Admit Problem/Dx: Admission Diagnosis/Problem Admission Diagnosis/Problem Alcohol withdrawal syndrome Source of Information: Patient, Family, Provider History Limitations: Reports: Altered Mental Status - History of Present Illness Initial Comments - Free Text/Narative: The patient is a 59-year-old male who presents to the emergency department and was diagnosed with findings of upper GI bleed. He reports having black stools and diarrhea the last approximate 5 days. Reported noting blood in his stools yesterday. Per his , he has had a similar episode about 3 weeks ago. He reports left lower quadrant abdominal tenderness for the last few months. He has had decreased appetite and associated nausea in the last few weeks. Besides the current episode and one 3 weeks ago, he has no other history of melena. He denies any NSAID use. He ranks one cup of coffee per week Per the patient's , he drinks 1 L of vodka every 1/2-2 days. He has never gone a significant period of time without drinking. He has been drinking heavily the last 15 years. Patient is a poor historian and starts to expound on hallucinations during interview - Related Data Allergies/Adverse Reactions: Allergies Allergy/AdvReac Type Severity Reaction Status Date / Time aspirin AdvReac Anxiety Verified 12/05/19 16:31 Home Medications: Home Meds Diltiazem [Tiazac] 360 mg PO DAILY 02/26/18 [History] ramipriL [Altace] 10 mg PO DAILY 02/26/18 [History] Tamsulosin [Flomax] 0.4 mg PO Q24H #15 cap.er 04/21/19 [Rx] glipiZIDE [Glucotrol] 10 mg PO BID #60 tablet 07/03/19 [Rx] Past Medical History Cardiovascular History: Reports: High Cholesterol, Hypertension Respiratory History: Reports: Pneumonia, Recurrent Gastrointestinal History: Reports: Chronic Constipation Genitourinary History: Reports: BPH Other Genitourinary History: pt self caths for bladder issues and prostate Musculoskeletal History: Reports: Neck Pain, Chronic, Osteoarthritis Other Musculoskeletal History: neck surgery Neurological History: Reports: Neuropathy, Peripheral Psychiatric History: Reports: Anxiety Endocrine/Metabolic History: Reports: Diabetes, Type II - Infectious Disease History Infectious Disease History: Reports: Chicken Pox, Measles, Mumps - Past Surgical History HEENT Surgical History: Reports: Adenoidectomy, Tonsillectomy Neurological Surgical History: Reports: C-Spine Social & Family History - Family History Family Medical History: Unobtainable (Altered mental status) - Tobacco Use Smoking Status *Q: Never Smoker Years of Tobacco use: 40 Packs/Tins Daily: 0.2 Used Tobacco, but Quit: No Second Hand Smoke Exposure: No - Caffeine Use Caffeine Use: Reports: None - Alcohol Use Days Per Week of Alcohol Use: 7 Number of Drinks Per Day: 2 Total Drinks Per Week: 14 Date of Last Drink: 12/05/19 Time of Last Drink: 08:45 - Recreational Drug Use Recreational Drug Use: Yes Drug Use in Last 12 Months: Yes Recreational Drug Type: Reports: Oxycodone Recreational Drug Use Frequency: Daily Recreational Drug Last Use: 11/04 - Living Situation & Occupation Living situation: Reports: , with Spouse 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) H&P Review of Systems - Review of Systems: Review Of Systems: Unable To Obtain Reason Not Obtained: Altered mental status Gastrointestinal: Reports: Abdominal Pain, Anorexia Exam - Exam Exam: See Below - Vital Signs Vital Signs: Last Vital Signs Temp 37.0 C 12/05/19 15:50 Pulse 104 H 12/05/19 15:42 Resp 22 H 12/05/19 16:00 BP 124/94 H 12/05/19 16:00 Pulse Ox 79 L 12/05/19 17:00 Weight: 104.326 kg - Exam Quality Assessment: Supplemental Oxygen General: Cooperative, Lethargic HEENT: EOMI Neck: Supple Lungs: Normal Respiratory Effort Cardiovascular: Regular Rhythm, Tachycardia GI/Abdominal Exam: Soft, Tender (And right lower quadrant and periumbilical area ) Extremities: No Pedal Edema Skin: Warm, Dry, Intact Neurological: Other (Slurred speech and tremor noted) Psychiatric: Hallucinations - Patient Data Lab Results Last 24 hrs: Laboratory Results - last 24 hr 12/05/19 12/05/19 12/05/19 Range/Units 10:30 10:30 10:34 WBC 8.86 (4.23-9.07) K/mm3 RBC 2.43 L (4.63-6.08) M/mm3 Hgb 8.4 L D (13.7-17.5) gm/dl Hct 24.4 L (40.1-51.0) % MCV 100.4 H D (79.0-92.2) fl MCH 34.6 H (25.7-32.2) pg MCHC 34.4 (32.2-35.5) g/dl RDW Std Deviation 46.9 H (35.1-43.9) fL Plt Count 158 L (163-337) K/mm3 MPV 10.2 (9.4-12.3) fl Neutrophils % (Manual) 86 H (40-60) % Band Neutrophils % 0 (0-10) % Lymphocytes % (Manual) 8 L (20-40) % Atypical Lymphs % 0 % Monocytes % (Manual) 5 (2-10) % Eosinophils % (Manual) 1 (0.8-7.0) % Basophils % (Manual) 0 L (0.2-1.2) Platelet Estimate Adequate Anisocytosis 1+ slight Macrocytosis Moderate RBC Morph Comment Not Reportable PT 11.0 (9.7-12.0) SECONDS INR 1.01 APTT 27 (22-31) SECONDS Sodium 130 L (136-145) mEq/L Potassium 3.8 (3.5-5.1) mEq/L Chloride 94 L (98-107) mEq/L Carbon Dioxide 27 (21-32) mEq/L Anion Gap 12.8 (5-15) BUN 24 H (7-18) mg/dL Creatinine 0.8 (0.7-1.3) mg/dL Est Cr Clr Drug Dosing 117.02 mL/min Estimated GFR (MDRD) > 60 (>60) mL/min BUN/Creatinine Ratio 30.0 H (14-18) Glucose 217 H (74-106) mg/dL POC Glucose (70-105) mg/dL Calcium 8.7 (8.5-10.1) mg/dL Total Bilirubin 1.3 H (0.2-1.0) mg/dL AST 24 (15-37) U/L ALT 28 (16-63) U/L Alkaline Phosphatase 68 (46-116) U/L Total Protein 5.9 L (6.4-8.2) g/dl Albumin 2.8 L (3.4-5.0) g/dl Globulin 3.1 gm/dL Albumin/Globulin Ratio 0.9 L (1-2) Urine Color (Yellow) Urine Appearance (Clear) Urine pH (5.0-8.0) Ur Specific Rice (1.005-1.030) Urine Protein (Negative) Urine Glucose (UA) (Negative) Urine Ketones (Negative) Urine Occult Blood (Negative) Urine Nitrite (Negative) Urine Bilirubin (Negative) Urine Urobilinogen (0.2-1.0) Ur Leukocyte Esterase (Negative) Urine RBC (0-5) /hpf Urine WBC (0-5) /hpf Ur Squamous Epith Cells (0-5) /hpf Amorphous Sediment (NOT SEEN) /hpf Urine Bacteria (FEW) /hpf Urine Mucus (FEW) /hpf Urine Opiates Screen (RAVCYA=379) Ur Buprenorphine Scrn (CUTOFF=10) Ur Oxycodone Screen (ZSY9TT=721) Urine Methadone Screen (RBN9ZN=377) Ur Propoxyphene Screen (HBJPWA=690) Ur Barbiturates Screen (YJFHGJ=243) Ur Tricyclics Screen (UCFYJC=316) Ur Phencyclidine Scrn (CUTOFF=25) Ur Amphetamine Screen (DNCYKO=322) U Methamphetamines Scrn (BYIDMD=021) U Benzodiazepines Scrn (YSFGDK=416) U Cocaine Metab Screen (ISSKBM=340) U Marijuana (THC) Screen (CUTOFF=50) Ethyl Alcohol 0.00 (0.00) gm% Blood Type Gel Antibody Screen 12/05/19 12/05/19 12/05/19 Range/Units 10:37 11:00 11:00 WBC (4.23-9.07) K/mm3 RBC (4.63-6.08) M/mm3 Hgb (13.7-17.5) gm/dl Hct (40.1-51.0) % MCV (79.0-92.2) fl MCH (25.7-32.2) pg MCHC (32.2-35.5) g/dl RDW Std Deviation (35.1-43.9) fL Plt Count (163-337) K/mm3 MPV (9.4-12.3) fl Neutrophils % (Manual) (40-60) % Band Neutrophils % (0-10) % Lymphocytes % (Manual) (20-40) % Atypical Lymphs % % Monocytes % (Manual) (2-10) % Eosinophils % (Manual) (0.8-7.0) % Basophils % (Manual) (0.2-1.2) Platelet Estimate Anisocytosis Macrocytosis RBC Morph Comment PT (9.7-12.0) SECONDS INR APTT (22-31) SECONDS Sodium (136-145) mEq/L Potassium (3.5-5.1) mEq/L Chloride (98-107) mEq/L Carbon Dioxide (21-32) mEq/L Anion Gap (5-15) BUN (7-18) mg/dL Creatinine (0.7-1.3) mg/dL Est Cr Clr Drug Dosing mL/min Estimated GFR (MDRD) (>60) mL/min BUN/Creatinine Ratio (14-18) Glucose (74-106) mg/dL POC Glucose (70-105) mg/dL Calcium (8.5-10.1) mg/dL Total Bilirubin (0.2-1.0) mg/dL AST (15-37) U/L ALT (16-63) U/L Alkaline Phosphatase (46-116) U/L Total Protein (6.4-8.2) g/dl Albumin (3.4-5.0) g/dl Globulin gm/dL Albumin/Globulin Ratio (1-2) Urine Color Yellow (Yellow) Urine Appearance Cloudy H (Clear) Urine pH 8.5 H (5.0-8.0) Ur Specific Rice 1.020 (1.005-1.030) Urine Protein 1+ H (Negative) Urine Glucose (UA) Negative (Negative) Urine Ketones 1+ H (Negative) Urine Occult Blood Negative (Negative) Urine Nitrite Negative (Negative) Urine Bilirubin Negative (Negative) Urine Urobilinogen 1.0 (0.2-1.0) Ur Leukocyte Esterase Trace H (Negative) Urine RBC 0-5 (0-5) /hpf Urine WBC 5-10 H (0-5) /hpf Ur Squamous Epith Cells Not seen (0-5) /hpf Amorphous Sediment Many H (NOT SEEN) /hpf Urine Bacteria Few (FEW) /hpf Urine Mucus Not seen (FEW) /hpf Urine Opiates Screen Negative (IAWZHQ=916) Ur Buprenorphine Scrn Negative (CUTOFF=10) Ur Oxycodone Screen Negative (BWR6DB=107) Urine Methadone Screen Negative (HNL2VA=590) Ur Propoxyphene Screen Negative (UKYUOR=633) Ur Barbiturates Screen Negative (SPRABI=853) Ur Tricyclics Screen Negative (PAAULR=496) Ur Phencyclidine Scrn Negative (CUTOFF=25) Ur Amphetamine Screen Negative (AXWSJO=256) U Methamphetamines Scrn Negative (ESZCZE=342) U Benzodiazepines Scrn Negative (EGYNCT=937) U Cocaine Metab Screen Negative (FKZVYR=002) U Marijuana (THC) Screen Negative (CUTOFF=50) Ethyl Alcohol (0.00) gm% Blood Type A NEGATIVE Gel Antibody Screen Negative 12/05/19 12/05/19 Range/Units 16:33 17:00 WBC (4.23-9.07) K/mm3 RBC (4.63-6.08) M/mm3 Hgb 7.9 L (13.7-17.5) gm/dl Hct 23.7 L (40.1-51.0) % MCV (79.0-92.2) fl MCH (25.7-32.2) pg MCHC (32.2-35.5) g/dl RDW Std Deviation (35.1-43.9) fL Plt Count (163-337) K/mm3 MPV (9.4-12.3) fl Neutrophils % (Manual) (40-60) % Band Neutrophils % (0-10) % Lymphocytes % (Manual) (20-40) % Atypical Lymphs % % Monocytes % (Manual) (2-10) % Eosinophils % (Manual) (0.8-7.0) % Basophils % (Manual) (0.2-1.2) Platelet Estimate Anisocytosis Macrocytosis RBC Morph Comment PT (9.7-12.0) SECONDS INR APTT (22-31) SECONDS Sodium (136-145) mEq/L Potassium (3.5-5.1) mEq/L Chloride (98-107) mEq/L Carbon Dioxide (21-32) mEq/L Anion Gap (5-15) BUN (7-18) mg/dL Creatinine (0.7-1.3) mg/dL Est Cr Clr Drug Dosing mL/min Estimated GFR (MDRD) (>60) mL/min BUN/Creatinine Ratio (14-18) Glucose (74-106) mg/dL POC Glucose 165 H (70-105) mg/dL Calcium (8.5-10.1) mg/dL Total Bilirubin (0.2-1.0) mg/dL AST (15-37) U/L ALT (16-63) U/L Alkaline Phosphatase (46-116) U/L Total Protein (6.4-8.2) g/dl Albumin (3.4-5.0) g/dl Globulin gm/dL Albumin/Globulin Ratio (1-2) Urine Color (Yellow) Urine Appearance (Clear) Urine pH (5.0-8.0) Ur Specific Rice (1.005-1.030) Urine Protein (Negative) Urine Glucose (UA) (Negative) Urine Ketones (Negative) Urine Occult Blood (Negative) Urine Nitrite (Negative) Urine Bilirubin (Negative) Urine Urobilinogen (0.2-1.0) Ur Leukocyte Esterase (Negative) Urine RBC (0-5) /hpf Urine WBC (0-5) /hpf Ur Squamous Epith Cells (0-5) /hpf Amorphous Sediment (NOT SEEN) /hpf Urine Bacteria (FEW) /hpf Urine Mucus (FEW) /hpf Urine Opiates Screen (HYCWWT=480) Ur Buprenorphine Scrn (CUTOFF=10) Ur Oxycodone Screen (SJC2QC=342) Urine Methadone Screen (HLI4YE=943) Ur Propoxyphene Screen (XBIEOC=904) Ur Barbiturates Screen (JIHCGC=671) Ur Tricyclics Screen (GQWFLL=595) Ur Phencyclidine Scrn (CUTOFF=25) Ur Amphetamine Screen (RMUPEZ=803) U Methamphetamines Scrn (LXXBOR=476) U Benzodiazepines Scrn (GZQFGA=072) U Cocaine Metab Screen (TMJGZV=561) U Marijuana (THC) Screen (CUTOFF=50) Ethyl Alcohol (0.00) gm% Blood Type Gel Antibody Screen Result Diagrams: 12/05/19 16:33 12/05/19 10:30 Sepsis Event Note - Evaluation Sepsis Screening Result: No Definite Risk - Focused Exam Vital Signs: Vital Signs Temp Pulse Pulse Resp BP BP Pulse Ox 12/05/19 17:00 79 L 12/05/19 16:01 100 12/05/19 16:00 22 H 124/94 H 97 12/05/19 15:50 37.0 C 18 125/91 H 100 12/05/19 15:42 104 H 100 12/05/19 11:00 118/78 12/05/19 10:24 36.6 C 113 H 16 100 Pulse Ox 12/05/19 17:00 12/05/19 16:01 12/05/19 16:00 98 12/05/19 15:50 12/05/19 15:42 12/05/19 11:00 12/05/19 10:24 Date Exam was Performed: 12/05/19 Time Exam was Performed: 19:57 Consult PN Assessment/Plan Procedures: Procedures AIRWAY INHALATION TREATMENT (05/19/18) ASSAY OF BLOOD OSMOLALITY (06/12/19) ASSAY OF LIPASE (10/21/19) ASSAY OF MAGNESIUM (06/19/19) ASSAY OF NATRIURETIC PEPTIDE (05/19/18) ASSAY OF TROPONIN QUANT (05/19/18) BL SMEAR W/DIFF WBC COUNT (06/12/19) C-REACTIVE PROTEIN (06/19/19) COMPLETE CBC AUTOMATED (06/12/19) COMPLETE CBC W/AUTO DIFF WBC (10/21/19) COMPREHEN METABOLIC PANEL (10/21/19) CT SOFT TISSUE NECK W/DYE (02/26/18) DRUG SCREEN QUANTALCOHOLS (10/21/19) DRUG TEST PRSMV INSTRMNT (10/21/19) ELECTROCARDIOGRAM TRACING (06/12/19) EMERGENCY DEPT VISIT (10/24/19) EMERGENCY DEPT VISIT (10/21/19) EMERGENCY DEPT VISIT (10/20/19) EMERGENCY DEPT VISIT (07/03/19) EMERGENCY DEPT VISIT (06/19/19) EMERGENCY DEPT VISIT (06/12/19) EMERGENCY DEPT VISIT (05/23/19) EMERGENCY DEPT VISIT (04/28/19) EMERGENCY DEPT VISIT (04/25/19) EMERGENCY DEPT VISIT (05/19/18) EMERGENCY DEPT VISIT (05/08/16) EMERGENCY DEPT VISIT (03/23/15) GLUCOSE BLOOD TEST (06/12/19) HYDRATE IV INFUSION ADD-ON (06/19/19) HYDRATION IV INFUSION INIT (06/12/19) INSERT TEMP BLADDER CATH (04/21/19) MICROBE SUSCEPTIBLE OANH (10/21/19) ROUTINE VENIPUNCTURE (10/21/19) TEST FOR ACETONE/KETONES (06/12/19) THER/PROPH/DIAG INJ IV PUSH (10/21/19) THER/PROPH/DIAG INJ SC/IM (10/23/19) TX/PRO/DX INJ NEW DRUG ADDON (06/19/19) URINALYSIS AUTO W/SCOPE (10/21/19) URINE BACTERIA CULTURE (10/21/19) URINE CULTURE/COLONY COUNT (10/21/19) US URINE CAPACITY MEASURE (05/20/19) X-RAY EXAM ABDOMEN 1 VIEW (05/23/19) X-RAY EXAM ABDOMEN 2 VIEWS (05/07/19) X-RAY EXAM CHEST 2 VIEWS (05/19/18) (1) Alcohol withdrawal SNOMED Code(s): 268637376 Code(s): F10.239 - ALCOHOL DEPENDENCE WITH WITHDRAWAL, UNSPECIFIED Current Visit: Yes Qualifiers: Complication of substance-induced condition: uncomplicated Qualified Code(s ): F10.230 - Alcohol dependence with withdrawal, uncomplicated (2) GI bleed SNOMED Code(s): 89924178 Code(s): K92.2 - GASTROINTESTINAL HEMORRHAGE, UNSPECIFIED Current Visit: Yes Qualifiers: GI bleed type/associated pathology: unspecified gastrointestinal hemorrhage type Qualified Code(s): K92.2 - Gastrointestinal hemorrhage, unspecified (3) Alcohol abuse SNOMED Code(s): 32335591 Code(s): F10.10 - ALCOHOL ABUSE, UNCOMPLICATED Current Visit: No Problem List Initiated/Reviewed/Updated: Yes Plan: 59-year-old male admitted to the ICU with need for alcohol withdrawal. Confounding symptoms of upper GI bleed, possible lower GI bleed - Continue nothing by mouth with IV Protonix - Transfuse up to 2 units - Will continue to monitor her physical exam for melena or hematochezia - Trend hemoglobin every 4-6 hours - Alcohol detox per protocol and primary Will continue to follow need for emergent scope. The patient is not an ideal operative candidate due to his active and ongoing alcohol withdrawal. Would be beneficial for the patient to detox prior to attempting any procedures. Pinky Gooden MD General Surgery
[2019-12-05] MEDS ORDERED: chlordiazePOXIDE 25 MG Cap PO ONE (20:50)
[2019-12-05] MEDS ORDERED: Pantoprazole 40 MG Vial IVPUSH SCH (21:00)
--- NOTE | 2019-12-05 22:42 | PCM.DCSUM1 ---
Discharge Summary - Hospital Course HPI Initial Comments: Terrance is a 59-year-old male with a history of type II diabetes, hypertension, neuropathy, neurogenic bladder with prostatic hypertrophy and self catheterizes his bladder, chronic neck pain who presented to the emergency room via EMS with a chief complaint of weakness, presyncope, loose stools. He is a poor historian , and his is with him trying to clarify his history. Apparently over the last few weeks he has had increasing difficulty getting out of bed or walking downstairs. He gets dizzy and weak. He drinks 1 to 1-1/2 L of vodka a day for several years. He started drinking heavily in 2004 after his mother's . Patient has been seen in our emergency department dozens of times and when I asked him why he states it was for narcotics. Patient's last opioid use was a month ago. Approximately 1 week ago he became stool incontinent and had vomiting and poor oral intake. He has had loose incontinent stools since . After not being able to get up his called EMS. His last shot of vodka was approximately 8:00 this morning. Patient states that when he withdraws from alcohol he generally has the shakes, but has not had seizures in the past. Apparently recently he has been having some hallucinations. He does complain of numbness and tingling in his extremities. He does complain of black stools. In the emergency room a rectal exam was performed and it did show positive for occult blood. Patient states that he had a severe bladder infection year ago and he has self catheterized since. He is unsure if he has an obstructive versus neurogenic bladder. In the emergency room patient was found to have a hemoglobin of 8.[address] scan was ordered which found increased stool within the rectum compatible with fecal impaction, hiatal hernia, fatty liver, and urachal remnant of the superior bladder. Initial emergency department labs: WBC 8.86, hemoglobin 8.4, platelets 158, PT 11, INR 1.01, PTT 27, sodium 130, potassium 3.8, chloride 94, carbon dioxide 27 , anion gap 13, BUN 24, creatinine 0.8, BUN to creatinine ratio 30, glucose 217 , total bilirubin 1.3, AST 24, ALT 28, alkaline phosphatase 68, albumin 2.8 Diagnosis: Stroke: No - Discharge Data Discharge Date: 12/05/19 Discharge Disposition: DC/Tfer to Acute Hospital 02 Condition: Stable - Referral to Home Health Primary Care Physician: Peng Norman Jr, MD - Patient Summary/Data Consults: Consultations 12/05/19 16:15 Consult to Case Management/Hand Bootmaker [CONS] Routine Consult to Cable Ferry Operator [CONS] Routine Consult to Spiritual Care [CONS] Routine OT Evaluation and Treatment [CONS] Routine PT Evaluation and Treatment [CONS] Routine Hospital Course: Patient had increasing confusion, tremor, agitation, hallucinations, and blood loss. Hemoglobin dropped from 8.4-7.0 since 1030, over a 10-hour period. Dr. Haddad was contacted and she was concerned that if he needs a surgical procedure this institution would not be appropriate because of his comorbid conditions. Patient was given 4 mg of Ativan and 50 mg of Librium over an hour and this did help his withdrawal symptoms. Continued to have tremors, but his CIWAA's were less than 8 and his RASS was 0 to -1. [facility] in [place] was contacted and Dr. Kim accepted the patient in transfer. - Patient Instructions Diet: NPO - Discharge Plan *PRESCRIPTION DRUG MONITORING PROGRAM REVIEWED*: No *COPY OF PRESCRIPTION DRUG MONITORING REPORT IN PATIENT [place]: No Home Medications: Home Meds Diltiazem [Tiazac] 360 mg PO DAILY 02/26/18 [History] ramipriL [Altace] 10 mg PO DAILY 02/26/18 [History] Tamsulosin [Flomax] 0.4 mg PO Q24H #15 cap.er 04/21/19 [Rx] glipiZIDE [Glucotrol] 10 mg PO BID #60 tablet 07/03/19 [Rx] Referrals: Peng Norman Jr, MD [Primary Care Provider] - - Discharge Summary/Plan Comment DC Time >30 min.: Yes Discharge Summary/Plan Comment: Transferred to [facility]. Accepting physician, Dr. Kim. Patient will be given 1 unit packed red blood cells in route. - General Info Date of Service: 12/05/19 Admission Dx/Problem (Free Text: Admission Diagnosis/Problem Admission Diagnosis/Problem Alcohol withdrawal syndrome Subjective Update: Currently resting comfortably. - Patient Data Vitals - Most Recent: Last Vital Signs Temp 99 F 12/05/19 20:00 Pulse 104 H 12/05/19 15:42 Resp 20 12/05/19 20:00 BP 136/77 12/05/19 20:00 Pulse Ox 98 12/05/19 20:00 Weight - Most Recent: 230 lb I&O - Last 24 hours: Intake & Output 12/05/19 12/05/19 12/05/19 06:59 14:59 22:59 Output Total 770 Balance -770 Lab Results - Last 24 hrs: Laboratory Results - last 24 hr 12/05/19 12/05/19 12/05/19 Range/Units 10:30 10:30 10:34 WBC 8.86 (4.23-9.07) K/mm3 RBC 2.43 L (4.63-6.08) M/mm3 Hgb 8.4 L D (13.7-17.5) gm/dl Hct 24.4 L (40.1-51.0) % MCV 100.4 H D (79.0-92.2) fl MCH 34.6 H (25.7-32.2) pg MCHC 34.4 (32.2-35.5) g/dl RDW Std Deviation 46.9 H (35.1-43.9) fL Plt Count 158 L (163-337) K/mm3 MPV 10.2 (9.4-12.3) fl Neutrophils % (Manual) 86 H (40-60) % Band Neutrophils % 0 (0-10) % Lymphocytes % (Manual) 8 L (20-40) % Atypical Lymphs % 0 % Monocytes % (Manual) 5 (2-10) % Eosinophils % (Manual) 1 (0.8-7.0) % Basophils % (Manual) 0 L (0.2-1.2) Platelet Estimate Adequate Anisocytosis 1+ slight Macrocytosis Moderate RBC Morph Comment Not Reportable PT 11.0 (9.7-12.0) SECONDS INR 1.01 APTT 27 (22-31) SECONDS Sodium 130 L (136-145) mEq/L Potassium 3.8 (3.5-5.1) mEq/L Chloride 94 L (98-107) mEq/L Carbon Dioxide 27 (21-32) mEq/L Anion Gap 12.8 (5-15) BUN 24 H (7-18) mg/dL Creatinine 0.8 (0.7-1.3) mg/dL Est Cr Clr Drug Dosing 117.02 mL/min Estimated GFR (MDRD) > 60 (>60) mL/min BUN/Creatinine Ratio 30.0 H (14-18) Glucose 217 H (74-106) mg/dL POC Glucose (70-105) mg/dL Calcium 8.7 (8.5-10.1) mg/dL Iron (65-175) ug/dL TIBC (100-400) ug/dL % Saturation (20-55) % Transferrin (202-364) mg/dL Ferritin (26-388) ng/ml Total Bilirubin 1.3 H (0.2-1.0) mg/dL AST 24 (15-37) U/L ALT 28 (16-63) U/L Alkaline Phosphatase 68 (46-116) U/L Total Protein 5.9 L (6.4-8.2) g/dl Albumin 2.8 L (3.4-5.0) g/dl Globulin 3.1 gm/dL Albumin/Globulin Ratio 0.9 L (1-2) Vitamin B12 (193-986) pg/ml Urine Color (Yellow) Urine Appearance (Clear) Urine pH (5.0-8.0) Ur Specific [place] (1.005-1.030) Urine Protein (Negative) Urine Glucose (UA) (Negative) Urine Ketones (Negative) Urine Occult Blood (Negative) Urine Nitrite (Negative) Urine Bilirubin (Negative) Urine Urobilinogen (0.2-1.0) Ur Leukocyte Esterase (Negative) Urine RBC (0-5) /hpf Urine WBC (0-5) /hpf Ur Squamous Epith Cells (0-5) /hpf Amorphous Sediment (NOT SEEN) /hpf Urine Bacteria (FEW) /hpf Urine Mucus (FEW) /hpf Urine Opiates Screen (CWJWQB=703) Ur Buprenorphine Scrn (CUTOFF=10) Ur Oxycodone Screen (MBO8EG=499) Urine Methadone Screen (QWB2HA=409) Ur Propoxyphene Screen (ADLRDX=657) Ur Barbiturates Screen (RNBIPO=375) Ur Tricyclics Screen (HHTYRV=963) Ur Phencyclidine Scrn (CUTOFF=25) Ur Amphetamine Screen (VINSHL=930) U Methamphetamines Scrn (GPYWAB=925) U Benzodiazepines Scrn (XOPWET=786) U Cocaine Metab Screen (YFVSPU=267) U Marijuana (THC) Screen (CUTOFF=50) Ethyl Alcohol 0.00 (0.00) gm% Blood Type Gel Antibody Screen Crossmatch 12/05/19 12/05/19 12/05/19 Range/Units 10:37 11:00 11:00 WBC (4.23-9.07) K/mm3 RBC (4.63-6.08) M/mm3 Hgb (13.7-17.5) gm/dl Hct (40.1-51.0) % MCV (79.0-92.2) fl MCH (25.7-32.2) pg MCHC (32.2-35.5) g/dl RDW Std Deviation (35.1-43.9) fL Plt Count (163-337) K/mm3 MPV (9.4-12.3) fl Neutrophils % (Manual) (40-60) % Band Neutrophils % (0-10) % Lymphocytes % (Manual) (20-40) % Atypical Lymphs % % Monocytes % (Manual) (2-10) % Eosinophils % (Manual) (0.8-7.0) % Basophils % (Manual) (0.2-1.2) Platelet Estimate Anisocytosis Macrocytosis RBC Morph Comment PT (9.7-12.0) SECONDS INR APTT (22-31) SECONDS Sodium (136-145) mEq/L Potassium (3.5-5.1) mEq/L Chloride (98-107) mEq/L Carbon Dioxide (21-32) mEq/L Anion Gap (5-15) BUN (7-18) mg/dL Creatinine (0.7-1.3) mg/dL Est Cr Clr Drug Dosing mL/min Estimated GFR (MDRD) (>60) mL/min BUN/Creatinine Ratio (14-18) Glucose (74-106) mg/dL POC Glucose (70-105) mg/dL Calcium (8.5-10.1) mg/dL Iron (65-175) ug/dL TIBC (100-400) ug/dL % Saturation (20-55) % Transferrin (202-364) mg/dL Ferritin (26-388) ng/ml Total Bilirubin (0.2-1.0) mg/dL AST (15-37) U/L ALT (16-63) U/L Alkaline Phosphatase (46-116) U/L Total Protein (6.4-8.2) g/dl Albumin (3.4-5.0) g/dl Globulin gm/dL Albumin/Globulin Ratio (1-2) Vitamin B12 (193-986) pg/ml Urine Color Yellow (Yellow) Urine Appearance Cloudy H (Clear) Urine pH 8.5 H (5.0-8.0) Ur Specific [place] 1.020 (1.005-1.030) Urine Protein 1+ H (Negative) Urine Glucose (UA) Negative (Negative) Urine Ketones 1+ H (Negative) Urine Occult Blood Negative (Negative) Urine Nitrite Negative (Negative) Urine Bilirubin Negative (Negative) Urine Urobilinogen 1.0 (0.2-1.0) Ur Leukocyte Esterase Trace H (Negative) Urine RBC 0-5 (0-5) /hpf Urine WBC 5-10 H (0-5) /hpf Ur Squamous Epith Cells Not seen (0-5) /hpf Amorphous Sediment Many H (NOT SEEN) /hpf Urine Bacteria Few (FEW) /hpf Urine Mucus Not seen (FEW) /hpf Urine Opiates Screen Negative (LBMWRZ=440) Ur Buprenorphine Scrn Negative (CUTOFF=10) Ur Oxycodone Screen Negative (AZR6HX=789) Urine Methadone Screen Negative (ULH8DT=430) Ur Propoxyphene Screen Negative (WORJBQ=203) Ur Barbiturates Screen Negative (BKDQJA=656) Ur Tricyclics Screen Negative (DMGWGZ=819) Ur Phencyclidine Scrn Negative (CUTOFF=25) Ur Amphetamine Screen Negative (WJBIKT=613) U Methamphetamines Scrn Negative (SJQPRC=498) U Benzodiazepines Scrn Negative (MRXTHO=978) U Cocaine Metab Screen Negative (KHZREN=879) U Marijuana (THC) Screen Negative (CUTOFF=50) Ethyl Alcohol (0.00) gm% Blood Type A NEGATIVE Gel Antibody Screen Negative Crossmatch 12/05/19 12/05/19 12/05/19 Range/Units 16:33 17:00 21:04 WBC (4.23-9.07) K/mm3 RBC (4.63-6.08) M/mm3 Hgb 7.9 L (13.7-17.5) gm/dl Hct 23.7 L (40.1-51.0) % MCV (79.0-92.2) fl MCH (25.7-32.2) pg MCHC (32.2-35.5) g/dl RDW Std Deviation (35.1-43.9) fL Plt Count (163-337) K/mm3 MPV (9.4-12.3) fl Neutrophils % (Manual) (40-60) % Band Neutrophils % (0-10) % Lymphocytes % (Manual) (20-40) % Atypical Lymphs % % Monocytes % (Manual) (2-10) % Eosinophils % (Manual) (0.8-7.0) % Basophils % (Manual) (0.2-1.2) Platelet Estimate Anisocytosis Macrocytosis RBC Morph Comment PT (9.7-12.0) SECONDS INR APTT (22-31) SECONDS Sodium (136-145) mEq/L Potassium (3.5-5.1) mEq/L Chloride (98-107) mEq/L Carbon Dioxide (21-32) mEq/L Anion Gap (5-15) BUN (7-18) mg/dL Creatinine (0.7-1.3) mg/dL Est Cr Clr Drug Dosing mL/min Estimated GFR (MDRD) (>60) mL/min BUN/Creatinine Ratio (14-18) Glucose (74-106) mg/dL POC Glucose 165 H 127 H (70-105) mg/dL Calcium (8.5-10.1) mg/dL Iron (65-175) ug/dL TIBC (100-400) ug/dL % Saturation (20-55) % Transferrin (202-364) mg/dL Ferritin (26-388) ng/ml Total Bilirubin (0.2-1.0) mg/dL AST (15-37) U/L ALT (16-63) U/L Alkaline Phosphatase (46-116) U/L Total Protein (6.4-8.2) g/dl Albumin (3.4-5.0) g/dl Globulin gm/dL Albumin/Globulin Ratio (1-2) Vitamin B12 (193-986) pg/ml Urine Color (Yellow) Urine Appearance (Clear) Urine pH (5.0-8.0) Ur Specific [place] (1.005-1.030) Urine Protein (Negative) Urine Glucose (UA) (Negative) Urine Ketones (Negative) Urine Occult Blood (Negative) Urine Nitrite (Negative) Urine Bilirubin (Negative) Urine Urobilinogen (0.2-1.0) Ur Leukocyte Esterase (Negative) Urine RBC (0-5) /hpf Urine WBC (0-5) /hpf Ur Squamous Epith Cells (0-5) /hpf Amorphous Sediment (NOT SEEN) /hpf Urine Bacteria (FEW) /hpf Urine Mucus (FEW) /hpf Urine Opiates Screen (HFVODV=883) Ur Buprenorphine Scrn (CUTOFF=10) Ur Oxycodone Screen (AYS1TI=868) Urine Methadone Screen (JZS3LI=172) Ur Propoxyphene Screen (ZFRUZJ=070) Ur Barbiturates Screen (MBYTPX=398) Ur Tricyclics Screen (UFBZYK=138) Ur Phencyclidine Scrn (CUTOFF=25) Ur Amphetamine Screen (FUHPIN=891) U Methamphetamines Scrn (GIVFZI=085) U Benzodiazepines Scrn (QAIASD=778) U Cocaine Metab Screen (XRQOJP=549) U Marijuana (THC) Screen (CUTOFF=50) Ethyl Alcohol (0.00) gm% Blood Type Gel Antibody Screen Crossmatch 12/05/19 12/05/19 12/05/19 Range/Units 21:05 21:05 21:05 WBC (4.23-9.07) K/mm3 RBC (4.63-6.08) M/mm3 Hgb 7.0 L* (13.7-17.5) gm/dl Hct 21.0 L (40.1-51.0) % MCV (79.0-92.2) fl MCH (25.7-32.2) pg MCHC (32.2-35.5) g/dl RDW Std Deviation (35.1-43.9) fL Plt Count (163-337) K/mm3 MPV (9.4-12.3) fl Neutrophils % (Manual) (40-60) % Band Neutrophils % (0-10) % Lymphocytes % (Manual) (20-40) % Atypical Lymphs % % Monocytes % (Manual) (2-10) % Eosinophils % (Manual) (0.8-7.0) % Basophils % (Manual) (0.2-1.2) Platelet Estimate Anisocytosis Macrocytosis RBC Morph Comment PT (9.7-12.0) SECONDS INR APTT (22-31) SECONDS Sodium (136-145) mEq/L Potassium (3.5-5.1) mEq/L Chloride (98-107) mEq/L Carbon Dioxide (21-32) mEq/L Anion Gap (5-15) BUN (7-18) mg/dL Creatinine (0.7-1.3) mg/dL Est Cr Clr Drug Dosing mL/min Estimated GFR (MDRD) (>60) mL/min BUN/Creatinine Ratio (14-18) Glucose (74-106) mg/dL POC Glucose (70-105) mg/dL Calcium (8.5-10.1) mg/dL Iron 178 H (65-175) ug/dL TIBC 164 (100-400) ug/dL % Saturation 109 H (20-55) % Transferrin 131 L (202-364) mg/dL Ferritin 2171 H (26-388) ng/ml Total Bilirubin (0.2-1.0) mg/dL AST (15-37) U/L ALT (16-63) U/L Alkaline Phosphatase (46-116) U/L Total Protein (6.4-8.2) g/dl Albumin (3.4-5.0) g/dl Globulin gm/dL Albumin/Globulin Ratio (1-2) Vitamin B12 392 (193-986) pg/ml Urine Color (Yellow) Urine Appearance (Clear) Urine pH (5.0-8.0) Ur Specific [place] (1.005-1.030) Urine Protein (Negative) Urine Glucose (UA) (Negative) Urine Ketones (Negative) Urine Occult Blood (Negative) Urine Nitrite (Negative) Urine Bilirubin (Negative) Urine Urobilinogen (0.2-1.0) Ur Leukocyte Esterase (Negative) Urine RBC (0-5) /hpf Urine WBC (0-5) /hpf Ur Squamous Epith Cells (0-5) /hpf Amorphous Sediment (NOT SEEN) /hpf Urine Bacteria (FEW) /hpf Urine Mucus (FEW) /hpf Urine Opiates Screen (JLILAQ=537) Ur Buprenorphine Scrn (CUTOFF=10) Ur Oxycodone Screen (TKV5XE=271) Urine Methadone Screen (EZL0OZ=144) Ur Propoxyphene Screen (PTXSLL=619) Ur Barbiturates Screen (PGNWQV=781) Ur Tricyclics Screen (AGVJGU=543) Ur Phencyclidine Scrn (CUTOFF=25) Ur Amphetamine Screen (ZQUOMR=277) U Methamphetamines Scrn (CJRHUE=403) U Benzodiazepines Scrn (CJZTRD=962) U Cocaine Metab Screen (EFNMXH=596) U Marijuana (THC) Screen (CUTOFF=50) Ethyl Alcohol (0.00) gm% Blood Type Gel Antibody Screen Crossmatch See Detail Med Orders - Current: Current Medications Folic Acid (Folic Acid) 1 mg IV DAILY [facility] Last Admin: 12/05/19 16:40 Dose: 1 mg Lactated Ringer's (Ringers, Lactated) 1,000 mls @ 125 mls/hr IV ASDIRECTED [facility] Last Admin: 12/05/19 16:26 Dose: 125 mls/hr Insulin Human Lispro (Humalog) 0 unit SUBCUT QIDACANDBED [facility]; Protocol Last Admin: 12/05/19 21:04 Dose: Not Given Lorazepam (Ativan) 1 - 3 mg IVPUSH Q1H PRN; Protocol PRN Reason: Withdrawal Symptoms Last Admin: 12/05/19 22:01 Dose: 2 mg Pantoprazole Sodium (Protonix Iv) 40 mg IVPUSH Q12H [facility] Last Admin: 12/05/19 20:28 Dose: 40 mg Sodium Chloride (Saline Flush) 10 ml FLUSH ONETIME PRN PRN Reason: IV FLUSH Last Admin: 12/05/19 13:49 Dose: 10 ml Thiamine HCl (Vitamin B-1) 100 mg IVPUSH Q8H [facility] Last Admin: 12/05/19 16:42 Dose: 100 mg Discontinued Medications Chlordiazepoxide HCl (Librium) 50 mg PO ONETIME ONE Stop: 12/05/19 20:51 Last Admin: 12/05/19 20:59 Dose: 50 mg Al Hydroxide/Mg Hydroxide 30 (ml/ Lidocaine HCl 15 ml) 0 ml PO ONETIME ONE Stop: 12/05/19 12:30 Last Admin: 12/05/19 12:36 Dose: 45 ml Lactated Ringer's (Ringers, Lactated) 1,000 mls @ 999 mls/hr IV .BOLUS ONE Stop: 12/05/19 11:30 Last Admin: 12/05/19 10:37 Dose: 999 mls/hr Iopamidol (Isovue-300 (61%)) 50 ml IVPUSH ONETIME ONE Stop: 12/05/19 13:46 Last Admin: 12/05/19 13:49 Dose: 50 ml Iopamidol (Isovue-300 (61%)) 100 ml IVPUSH ONETIME ONE Stop: 12/05/19 13:46 Last Admin: 12/05/19 13:49 Dose: 100 ml Lorazepam (Ativan) 1 mg IVPUSH ONETIME ONE Stop: 12/05/19 12:22 Last Admin: 12/05/19 12:30 Dose: 1 mg Ondansetron HCl (Zofran) 4 mg IVPUSH ONETIME STA Stop: 12/05/19 10:31 Last Admin: 12/05/19 10:36 Dose: 4 mg Pantoprazole Sodium (Protonix Iv) 40 mg IVPUSH ONETIME ONE Stop: 12/05/19 13:03 Last Admin: 12/05/19 13:31 Dose: 40 mg Pantoprazole Sodium (Protonix Iv) 40 mg IVPUSH ONETIME ONE Stop: 12/05/19 13:51 Last Admin: 12/05/19 14:02 Dose: 40 mg - Exam General: Reports: Sedated Neck: Reports: Supple Lungs: Reports: Clear to Auscultation, Normal Respiratory Effort Cardiovascular: Reports: Regular Rate, Regular Rhythm GI/Abdominal Exam: Normal Bowel Sounds, Soft Extremities: Normal Inspection, Non-Tender, No Pedal Edema
[2019-12-05] MEDS ORDERED: Sodium Chloride 0.9% 250 ML IV SCH (22:45)
[2019-12-05] MEDS ORDERED: Sodium Chloride 0.9% 250 ML ONE (22:48)
[2019-12-05 22:55] VITALS: PULSE 102
[2019-12-05 23:39] VITALS: BP 97/66
== END 2019-12-05 23:20 | DRG 897 ==
LOC: JD.ED 10:15 → JD.ICU 15:06
PROVIDERS: ADMIT Family Medicine; ATTEND Family Medicine
PROC: 30233N1 Transfusion of Nonautologous Red Blood Cells into Peripheral Vein, Percutaneous Approach (ICD-10-PCS; principal; 2019-12-05)
DX: F10.230 Alcohol dependence with withdrawal, uncomplicated (principal); K92.2 Gastrointestinal hemorrhage, unspecified; G31.2 Degeneration of nervous system due to alcohol; E11.40 Type 2 diabetes mellitus with diabetic neuropathy, unspecified; I10 Essential (primary) hypertension; M54.2 Cervicalgia; G89.29 Other chronic pain; E78.00 Pure hypercholesterolemia, unspecified; M19.90 Unspecified osteoarthritis, unspecified site; F41.9 Anxiety disorder, unspecified; D64.9 Anemia, unspecified; K56.41 Fecal impaction; N40.1 Benign prostatic hyperplasia with lower urinary tract symptoms; R33.8 Other retention of urine; Z99.81 Dependence on supplemental oxygen; Z88.6 Allergy status to analgesic agent; Z79.84 Long term (current) use of oral hypoglycemic drugs; Z79.899 Other long term (current) drug therapy; Z90.89 Acquired absence of other organs; Z98.890 Other specified postprocedural states
CPT/HCPCS: 36415; 36430; 51702; 74177; 74177-26; 80053; 80306; 81001; 82607; 82728; 82962; 83540; 84466; 85007; 85014; 85018; 85027; 85610; 85730; 86850; 86900; 86901; 86922; 87086; 87088; 87186; 96361; 96374; 96375; 96376; 99236; 99285-25; A9270-GY; C9113; G0480; J1815-GY; J2060; J2405; J3411; J7050; J7120; P9016; Q9967

== ENCOUNTER 2020-01-01 12:19 | Emergency (ER) | payer OTHER ==
[2020-01-01 12:29] VITALS: BP 119/83; PULSE 89
[2020-01-01] MEDS ORDERED: Sodium Chloride 0.9% 10 ML Syringe FLUSH PRN (13:05)
[2020-01-01] MEDS ORDERED: Sodium Chloride 0.9% 1,000 ML IV ONE (13:06)
--- NOTE | 2020-01-01 13:13 | EDM.PDOC ---
ED HPI GENERAL MEDICAL PROBLEM - General Chief Complaint: Neurological Problem Stated Complaint: WEAK/DIZZY Time Seen by Provider: 01/01/20 12:53 Source of Information: Reports: Patient, Family (), RN Notes Reviewed History Limitations: Reports: No Limitations - History of Present Illness INITIAL COMMENTS - FREE TEXT/NARRATIVE: Patient is a 59-year-old male who presents to the ED for the evaluation of having generalized weakness and becoming dizzy. Patient states that he was in his normal state of health, until this morning when he was in the kitchen, when he began making some soup and progressively got more lightheaded and dizzy, he states he was able to make it to his walker, and sit down. He did not fall or have any loss of consciousness. Patient states that he is still eating and drinking at home, but just feels generally weak. His blood pressure at home was checked and it was 100/72 at that time. Blood pressure at time of triage is 119/83. Patient does not have a fever, he is not complaining of pain anywhere, no chest pain no cough, no shortness of breath, no nausea/vomiting/ diarrhea. Patient states that her dizziness does seem to worsen from laying to sitting positions, he says when he goes from sitting to standing it does make it worse. He does not characterize it as a world spinning type dizziness around him, more of just a lightheadedness and generalized dizziness. Patient is a recovering alcoholic, and is 26 days sober from alcohol. He is not complaining of any dark tarry stools at this time, but his states that he did have an issue with bleeding ulcers for his sober.. Generalized Pain Score (Numeric/FACES): 8 - Related Data Allergies Allergy/AdvReac Type Severity Reaction Status Date / Time aspirin AdvReac Anxiety Verified 12/05/19 16:31 Home Meds: Home Meds Diltiazem [Tiazac] 360 mg PO DAILY 02/26/18 [History] ramipriL [Altace] 10 mg PO DAILY 02/26/18 [History] Tamsulosin [Flomax] 0.4 mg PO Q24H #15 cap.er 04/21/19 [Rx] Acetaminophen [Tylenol] 500 mg PO Q4H 01/01/20 [History] Ferrous Sulfate 325 mg PO DAILY 01/01/20 [History] Folic Acid 1 mg PO DAILY 01/01/20 [History] Insulin Aspart [NovoLOG] 0 unit INJECT ASDIRECTED 01/01/20 [History] Insulin Glarg,Human.Rec.Analog [Lantus] 20 units INJECT Q12H 01/01/20 [History] Melatonin 5 mg PO ASDIRECTED 01/01/20 [History] Multivitamin,Therapeutic [Oncovite] 1 tab PO DAILY 01/01/20 [History] Pantoprazole Sodium [Protonix] 10 mg PO DAILY 01/01/20 [History] Thiamine [Vitamin B-1] 100 mg PO DAILY 01/01/20 [History] cephALEXin [Cephalexin] 500 mg PO BID #13 capsule 01/01/20 [Rx] Past Medical History Cardiovascular History: Reports: High Cholesterol, Hypertension Respiratory History: Reports: Pneumonia, Recurrent Gastrointestinal History: Reports: Chronic Constipation Genitourinary History: Reports: BPH Other Genitourinary History: pt self caths for bladder issues and prostate Musculoskeletal History: Reports: Neck Pain, Chronic, Osteoarthritis Other Musculoskeletal History: neck surgery Neurological History: Reports: Neuropathy, Peripheral Psychiatric History: Reports: Anxiety Endocrine/Metabolic History: Reports: Diabetes, Type II - Infectious Disease History Infectious Disease History: Reports: Chicken Pox, Measles, Mumps - Past Surgical History HEENT Surgical History: Reports: Adenoidectomy, Tonsillectomy Neurological Surgical History: Reports: C-Spine Social & Family History - Family History Family Medical History: Unobtainable - Tobacco Use Smoking Status *Q: Current Every Day Smoker Years of Tobacco use: 41 Packs/Tins Daily: 0.3 - Caffeine Use Caffeine Use: Reports: Coffee - Alcohol Use Alcohol Use History: Yes Alcohol Use in Last Twelve Months: Yes Alcohol Use Frequency: Not Used in Over 1 Month (Patient is 26 days sober, last drink in the first week of December 2019.) - Recreational Drug Use Recreational Drug Use: No - Living Situation & Occupation Living situation: Reports: , with Spouse 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 Denies: Chest Pain, Palpitations GI/Abdominal: Denies: Abdominal Pain, Constipation, Diarrhea, Nausea, Vomiting : Denies: Dysuria, Frequency, Urgency Skin: Reports: Pruritis (generalized) Neurological: Reports: Dizziness, Pre-Existing Deficit (peripheral neuropathy). Denies: Confusion, Headache ED EXAM, GENERAL - Physical Exam Exam: See Below Exam Limited By: No Limitations General Appearance: Alert, WD/WN, No Apparent Distress Eye Exam: Bilateral Eye: EOMI, Normal Inspection, PERRL Ears: Normal External Exam Nose: Normal Inspection Throat/Mouth: Normal Inspection, Normal Lips, Normal Gums, Normal Oropharynx, Normal Voice, No Airway Compromise Head: Atraumatic, Normocephalic Neck: Normal Inspection Respiratory/Chest: No Respiratory Distress, Lungs Clear, Normal Breath Sounds, No Accessory Muscle Use, Chest Non-Tender Cardiovascular: Normal Peripheral Pulses, Regular Rate, Rhythm, No Murmur Peripheral Pulses: 3+: Radial (L), Radial (R) GI/Abdominal: Normal Bowel Sounds, Soft, Non-Tender, No Distention, No Mass Extremities: Normal Inspection, Normal Capillary Refill, Pedal Edema (1+ pitting edema to bilateral extremities) Neurological: Alert, Oriented, Normal Cognition, No Motor/Sensory Deficits Psychiatric: Normal Affect, Normal Mood Skin Exam: Warm, Dry, Intact, No Rash, Pallor (generalized, mild sallowness to skin globally) Course - Vital Signs Last Recorded V/S: Last Vital Signs Temp 96.5 F L 01/01/20 12:27 Pulse 89 01/01/20 12:27 Resp 20 01/01/20 12:27 BP 119/83 01/01/20 12:27 Pulse Ox 100 01/01/20 12:27 Orthostatic Blood Pressure [ 104/65 Standing] Orthostatic Blood Pressure [ 126/81 Sitting] Orthostatic Blood Pressure [ 136/85 Supine] - Orders/Labs/Meds Orders: Active Orders 24 hr Category Date Time Status Orthostatic Vital Signs [RC] ASDIRECTED Care 01/01/20 13:05 Active Peripheral IV Care [RC] . DIRECTED Care 01/01/20 13:06 Active CULTURE URINE [RM] Routine Lab 01/01/20 13:45 Received Magnesium Sulfate/Water [Magnesium Sulfate in Water Med 01/01/20 15:02 Ordered Premix] 2 gm Premix Bag 1 bag IV ONETIME Sodium Chloride 0.9% [Saline Flush] Med 01/01/20 13:05 Active 10 ml FLUSH ASDIRECTED PRN Peripheral IV Insertion Adult [OM.PC] Stat Oth 01/01/20 13:05 Ordered Medication Orders Magnesium Sulfate 2 gm/ Premix 50 mls @ 25 mls/hr IV ONETIME ONE Stop: 01/01/20 17:01 Sodium Chloride (Saline Flush) 10 ml FLUSH ASDIRECTED PRN PRN Reason: Keep Vein Open Last Admin: 01/01/20 13:46 Dose: 10 ml Labs: Laboratory Tests 01/01/20 01/01/20 01/01/20 Range/Units 13:45 13:45 13:45 WBC 3.35 L (4.23-9.07) K/mm3 RBC 3.92 L (4.63-6.08) M/mm3 Hgb 12.2 L D (13.7-17.5) gm/dl Hct 39.3 L (40.1-51.0) % MCV 100.3 H (79.0-92.2) fl MCH 31.1 (25.7-32.2) pg MCHC 31.0 L (32.2-35.5) g/dl RDW Std Deviation 54.0 H (35.1-43.9) fL Plt Count 216 (163-337) K/mm3 MPV 9.9 (9.4-12.3) fl Neut % (Auto) 57.3 (34.0-67.9) % Lymph % (Auto) 26.9 (21.8-53.1) % [place] % (Auto) 11.6 (5.3-12.2) % Eos % (Auto) 3.6 (0.8-7.0) Baso % (Auto) 0.3 (0.1-1.2) % Neut # (Auto) 1.92 (1.78-5.38) K/mm3 Lymph # (Auto) 0.90 L (1.32-3.57) K/mm3 [place] # (Auto) 0.39 (0.30-0.82) K/mm3 Eos # (Auto) 0.12 (0.04-0.54) K/mm3 Baso # (Auto) 0.01 (0.01-0.08) K/mm3 Sodium 139 (136-145) mEq/L Potassium 4.2 (3.5-5.1) mEq/L Chloride 103 (98-107) mEq/L Carbon Dioxide 29 (21-32) mEq/L Anion Gap 11.2 (5-15) BUN 9 (7-18) mg/dL Creatinine 0.7 (0.7-1.3) mg/dL Est Cr Clr Drug Dosing 133.74 mL/min Estimated GFR (MDRD) > 60 (>60) mL/min BUN/Creatinine Ratio 12.9 L (14-18) Glucose 115 H (74-106) mg/dL Calcium 9.0 (8.5-10.1) mg/dL Magnesium 1.7 L (1.8-2.4) mg/dl Total Bilirubin 0.4 (0.2-1.0) mg/dL AST 35 (15-37) U/L ALT 43 (16-63) U/L Alkaline Phosphatase 73 (46-116) U/L NT-Pro-B Natriuret Pep 710 H (0-125) pg/mL Total Protein 6.5 (6.4-8.2) g/dl Albumin 3.4 (3.4-5.0) g/dl Globulin 3.1 gm/dL Albumin/Globulin Ratio 1.1 (1-2) Urine Color (Yellow) Urine Appearance (Clear) Urine pH (5.0-8.0) Ur Specific [place] (1.005-1.030) Urine Protein (Negative) Urine Glucose (UA) (Negative) Urine Ketones (Negative) Urine Occult Blood (Negative) Urine Nitrite (Negative) Urine Bilirubin (Negative) Urine Urobilinogen (0.2-1.0) Ur Leukocyte Esterase (Negative) Urine RBC (0-5) /hpf Urine WBC (0-5) /hpf Ur Squamous Epith Cells (0-5) /hpf Urine Bacteria (FEW) /hpf Urine Mucus (FEW) /hpf 01/01/20 Range/Units 13:45 WBC (4.23-9.07) K/mm3 RBC (4.63-6.08) M/mm3 Hgb (13.7-17.5) gm/dl Hct (40.1-51.0) % MCV (79.0-92.2) fl MCH (25.7-32.2) pg MCHC (32.2-35.5) g/dl RDW Std Deviation (35.1-43.9) fL Plt Count (163-337) K/mm3 MPV (9.4-12.3) fl Neut % (Auto) (34.0-67.9) % Lymph % (Auto) (21.8-53.1) % [place] % (Auto) (5.3-12.2) % Eos % (Auto) (0.8-7.0) Baso % (Auto) (0.1-1.2) % Neut # (Auto) (1.78-5.38) K/mm3 Lymph # (Auto) (1.32-3.57) K/mm3 [place] # (Auto) (0.30-0.82) K/mm3 Eos # (Auto) (0.04-0.54) K/mm3 Baso # (Auto) (0.01-0.08) K/mm3 Sodium (136-145) mEq/L Potassium (3.5-5.1) mEq/L Chloride (98-107) mEq/L Carbon Dioxide (21-32) mEq/L Anion Gap (5-15) BUN (7-18) mg/dL Creatinine (0.7-1.3) mg/dL Est Cr Clr Drug Dosing mL/min Estimated GFR (MDRD) (>60) mL/min BUN/Creatinine Ratio (14-18) Glucose (74-106) mg/dL Calcium (8.5-10.1) mg/dL Magnesium (1.8-2.4) mg/dl Total Bilirubin (0.2-1.0) mg/dL AST (15-37) U/L ALT (16-63) U/L Alkaline Phosphatase (46-116) U/L NT-Pro-B Natriuret Pep (0-125) pg/mL Total Protein (6.4-8.2) g/dl Albumin (3.4-5.0) g/dl Globulin gm/dL Albumin/Globulin Ratio (1-2) Urine Color Yellow (Yellow) Urine Appearance Clear (Clear) Urine pH 7.0 (5.0-8.0) Ur Specific [place] 1.015 (1.005-1.030) Urine Protein Negative (Negative) Urine Glucose (UA) Negative (Negative) Urine Ketones Negative (Negative) Urine Occult Blood Negative (Negative) Urine Nitrite Negative (Negative) Urine Bilirubin Negative (Negative) Urine Urobilinogen 0.2 (0.2-1.0) Ur Leukocyte Esterase 1+ H (Negative) Urine RBC Not seen (0-5) /hpf Urine WBC 10-20 H (0-5) /hpf Ur Squamous Epith Cells 5-10 H (0-5) /hpf Urine Bacteria Many H (FEW) /hpf Urine Mucus Not seen (FEW) /hpf Meds: Medications Generic Name Dose Route Start Last Admin Trade Name Freq PRN Reason Stop Dose Admin Magnesium Sulfate 2 gm/ Premix 50 mls @ 25 mls/hr 01/01/20 15:02 IV 01/01/20 17:01 ONETIME ONE Sodium Chloride 10 ml 01/01/20 13:05 01/01/20 13:46 Saline Flush FLUSH 10 ml ASDIRECTED PRN Administration Keep Vein Open Discontinued Medications Generic Name Dose Route Start Last Admin Trade Name Freq PRN Reason Stop Dose Admin Cephalexin 500 mg 01/01/20 15:09 Keflex PO 01/01/20 15:10 ONETIME ONE Sodium Chloride 1,000 mls @ 999 mls/hr 01/01/20 13:06 01/01/20 13:46 Normal Saline IV 01/01/20 14:06 999 mls/hr ONETIME ONE Administration - Re-Assessments/Exams Free Text/Narrative Re-Assessment/Exam: 01/01/20 13:14 Patient presents to the ED for evaluation of generalized weakness and dizziness. I will do orthostatic vital signs, get a urinalysis, CBC, CMP, magnesium, BNP, give him some IV fluids for beginning management today. 01/01/20 15:14 Patient's CBC demonstrates a mildly low white blood cell count, hemoglobin is mildly low but at 12.2, so not worrisomely low. Metabolic panel demonstrates no worrisome derangements. His magnesium is mildly low at 1.7. BNP is elevated at 710. Patient's urine does show 1+ leukocyte esterase, 10-20 white blood cells, 5-10 epis cells and many bacteria. At this time I did send the urine for culture but he states that he is having a little bit of dysuria, so I will treated as a urine infection at this time. He will be started on Keflex in the ED, and given 2g of magnesium for his slightly low level. Departure - Departure Time of Disposition: 15:16 Disposition: Home, Self-Care 01 Condition: Fair Clinical Impression: Hypomagnesemia with normocalciuria UTI (urinary tract infection) Qualifiers: Urinary tract infection type: acute cystitis Hematuria presence: without hematuria Qualified Code(s): N30.00 - Acute cystitis without hematuria - Discharge Information *PRESCRIPTION DRUG MONITORING PROGRAM REVIEWED*: No *COPY OF PRESCRIPTION DRUG MONITORING REPORT IN PATIENT [place]: No Prescriptions: cephALEXin [Cephalexin] 500 mg PO BID #13 capsule Instructions: Urinary Tract Infection, Adult, [id number] Referrals: Peng Norman Jr, MD [Primary Care Provider] - Forms: ED Department Discharge Additional Instructions: You were evaluated in the ER today regarding your generalized weakness and dizziness. You did have some laboratory evaluation, and this demonstrated no obvious metabolic abnormalities. Your magnesium level was mildly low and you did receive 2 g of IV magnesium for correction of this. Your urinalysis demonstrated a mild UTI in nature, you will be treated with cephalexin 500 mg twice daily for the next 7 days. Urine was sent for culture and you will be called and made notified if you need to stop taking the medication or need a change in antibiotics. Recommend you follow-up with your regular doctor sometime this week for recheck of your symptoms and make sure everything is getting better as expected. As always try to keep yourself well-hydrated throughout the day, and eat nutritious meals. You may obtain magnesium oxide, 400 mg tablets, and take on a daily basis for further magnesium supplementation. These are available [id number] at any retail space like [employer] or pharmacies. You did have some lower leg edema identified on today's exam as well. Please keep your legs wrapped while walking or moving around, try to elevate your legs as much as possible when you are resting to help decrease the edema. Please return to the ED at any time if your symptoms change or worsen. Sepsis Event Note - Evaluation Sepsis Screening Result: No Definite Risk - Focused Exam Vital Signs: Vital Signs Temp Pulse Resp BP Pulse Ox 01/01/20 12:27 96.5 F L 89 20 119/83 100 Date Exam was Performed: 01/01/20 Time Exam was Performed: 15:13 - My Orders Last 24 Hours: My Active Orders 01/01/20 13:05 Orthostatic Vital Signs [RC] ASDIRECTED Sodium Chloride 0.9% [Saline Flush] 10 ml FLUSH ASDIRECTED PRN Peripheral IV Insertion Adult [OM.PC] Stat 01/01/20 13:06 Peripheral IV Care [RC] . DIRECTED 01/01/20 13:45 CULTURE URINE [RM] Routine 01/01/20 15:02 Magnesium Sulfate/Water [Magnesium Sulfate in Water Premix] 2 gm Premix Bag 1 bag IV ONETIME - Assessment/Plan Last 24 Hours: My Active Orders 01/01/20 13:05 Orthostatic Vital Signs [RC] ASDIRECTED Sodium Chloride 0.9% [Saline Flush] 10 ml FLUSH ASDIRECTED PRN Peripheral IV Insertion Adult [OM.PC] Stat 01/01/20 13:06 Peripheral IV Care [RC] . DIRECTED 01/01/20 13:45 CULTURE URINE [RM] Routine 01/01/20 15:02 Magnesium Sulfate/Water [Magnesium Sulfate in Water Premix] 2 gm Premix Bag 1 bag IV ONETIME
[2020-01-01] MEDS ORDERED: Magnesium Sulfate/Water 2 GM in Premix Bag 1 BAG IV ONE (15:02)
[2020-01-01] MEDS ORDERED: Cephalexin 500 MG Cap PO ONE (15:09)
== END 2020-01-01 17:17 | disposition home or self-care (01) ==
LOC: JD.ED 12:19
DX: E83.42 Hypomagnesemia (principal); N30.00 Acute cystitis without hematuria; I10 Essential (primary) hypertension; E11.42 Type 2 diabetes mellitus with diabetic polyneuropathy; E78.00 Pure hypercholesterolemia, unspecified; F41.9 Anxiety disorder, unspecified; F17.210 Nicotine dependence, cigarettes, uncomplicated; Z88.8 Allergy status to other drugs, medicaments and biological substances; Z79.899 Other long term (current) drug therapy; Z79.4 Long term (current) use of insulin
CPT/HCPCS: 36415; 80053; 81001; 83735; 83880; 85025; 87086; 87088; 87186; 96361; 96365; 96366; 99284; A9270; J3475; J7030; 99283

== ENCOUNTER 2020-08-05 19:45 | Emergency (ER) | payer OTHER | END 2020-08-05 20:57 | LOC: JD.ED 19:45 ==

== ENCOUNTER 2023-07-20 05:44 | Inpatient (IN) | payer MEDICARE, MEDICAID ==
[2023-07-20] MEDS ORDERED: Sodium Chloride 0.9% 10 ML Syringe FLUSH PRN ×2 (06:14→07:20)
[2023-07-20] MEDS ORDERED: Albuterol/Ipratropium 3.0-0.5 MG/3 ML Neb Soln NEB ONE (06:16)
[2023-07-20 06:25] LABS: BASOPHILS PERCENT AUTO 0.2 % (0.0-1.0); EOSINOPHILS ABSOLUTE AUTO 0.1 K/mm3 (0.0-0.4); HEMATOCRIT 31.3 % (42.0-52.0); HEMOGLOBIN 10.9 gm/dl (14.0-18.0); IMMATURE GRAN ABSOLUTE AUTO 0.06 K/mm3 (0.00-0.05); IMMATURE GRAN PERCENT AUTO 0.6 % (0.0-0.4); LYMPHOCYTES ABSOLUTE AUTO 0.9 K/mm3 (1.0-4.8); LYMPHOCYTES PERCENT AUTO 9.3 % (24.0-44.0); MEAN CORPUSCULAR HEMOGLOBIN 30.4 pg (28.0-32.0); MEAN CORPUSCULAR HGB CONC 34.8 g/dl (32.0-36.0); MEAN CORPUSCULAR VOLUME 87.4 fl (83.0-99.0); MEAN PLATELET VOLUME 10.9 fl (9.4-12.4); MONOCYTES PERCENT AUTO 9.9 % (0.0-8.0); NEUTROPHILS ABSOLUTE AUTO 7.8 K/mm3 (1.8-7.7); PLATELET COUNT,PLT 190 K/mm3 (150-400); RED BLOOD CELL COUNT 3.58 M/mm3 (4.52-5.90); WHITE BLOOD CELL COUNT,WBC 9.87 K/mm3 (3.9-11.3)
[2023-07-20] MEDS ORDERED: cefTRIAXone 2 GM in Sodium Chloride 0.9% 100 ML IV ONE (06:51)
[2023-07-20 06:54] LABS: A/G RATIO 0.7 (1-2); ANION GAP 15.6 (5-15); BILIRUBIN TOTAL 0.5 mg/dL (0.2-1.0); BUN/CREATININE RATIO 21.7 (14-18); CALCIUM 7.9 mg/dL (8.5-10.1); CREATININE 1.8 mg/dL (0.7-1.3); EST CRCL DRUG DOSING (CG) 48.7 mL/min; POTASSIUM,K 4.6 mEq/L (3.5-5.1); PROTEIN TOTAL,TP 7.2 g/dl (6.4-8.2)
[2023-07-20 07:16] LABS: LACTIC ACID 0.7 mmol/L (0.4-2.0)
[2023-07-20] MEDS ORDERED: Iopamidol 755 Mg/ML 100 ML Bottle IVPUSH ONE (07:20)
[2023-07-20 07:22] LABS: C-REACTIVE PROTEIN 18.8 mg/dL (<1.0)
[2023-07-20] MEDS ORDERED: Furosemide 40 MG/4 ML VIAL IVPUSH ONE (07:23)
[2023-07-20] MEDS ORDERED: Sodium Chloride 0.9% 45 ML IV SCH (07:30)
[2023-07-20 07:58] LABS: CORONAVIRUS COVID-19 NAA NEGATIVE (NEGATIVE); INFLUENZA A NAA NEGATIVE (NEGATIVE); RESPIRATORY SYNCYTIAL VIR NAA NEGATIVE (NEGATIVE)
[2023-07-20] MEDS ORDERED: Azithromycin 500 MG in Sodium Chloride 0.9% 250 ML IV ONE (08:45)
[2023-07-20 10:20] LABS: TROPONIN I HIGH SENSITIVITY 143 pg/mL (<=76)
[2023-07-20 10:22] LABS: APPEARANCE,URINE CLEAR (Clear); BILIRUBIN,URINE NEGATIVE (Negative); COLOR,URINE YELLOW (Yellow); GLUCOSE,URINE NEGATIVE (Negative); KETONES,URINE NEGATIVE (Negative); LEUKOCYTE ESTERASE,URINE NEGATIVE (Negative); NITRITE,URINE NEGATIVE (Negative); OCCULT BLOOD,URINE TRACE-LYSED (Negative); PROTEIN,URINE 2+ (Negative); UROBILINOGEN,URINE 0.2 (0.2-1.0)
[2023-07-20 11:11] LABS: BACTERIA,URINE FEW /hpf (FEW); EPITHELIAL CELLS,URINE 0-5 /hpf (0-5); MUCUS,URINE NOT SEEN /hpf (FEW); RBC,URINE NOT SEEN /hpf (0-5); WBC,URINE 0-5 /hpf (0-5)
[2023-07-20] MEDS ORDERED: Ondansetron 4 MG/2 ML SDV IV PRN (11:20)
[2023-07-20] MEDS: Insulin Lispro 100 Unit/ML 3 ML KwikPen SUBCUT SCH ×3 (11:51→20:55)
[2023-07-20] MEDS: Heparin Sodium 5,000 Units/ML Vial SUBCUT SCH ×2 (12:46→20:53)
[2023-07-20] MEDS: Tamsulosin 0.4 MG Cap.ER PO SCH (12:46)
[2023-07-20] MEDS ORDERED: Piperacillin/Tazobactam 4.5 GM in Sodium Chloride 0.9% 100 ML IV ONE (14:00)
[2023-07-20] MEDS: Cyclobenzaprine 10 MG Tab PO SCH ×2 (14:28→20:53)
[2023-07-20] MEDS: Acetaminophen 325 MG Tab PO PRN (14:31)
[2023-07-20] MEDS: Piperacillin/Tazobactam 4.5 GM in Sodium Chloride 0.9% 100 ML IV SCH ×2 (20:54→22:18)
[2023-07-20] MEDS: Pregabalin 25 MG Cap PO SCH (20:54)
[2023-07-20] MEDS: Insulin Glargine,Human Rec. Analog 100 Units/ML 3 ML Pen SUBCUT SCH (20:56)
[2023-07-20] MEDS ORDERED: Insulin Glargine,Human Rec. Analog 100 Units/ML 3 ML Pen SUBCUT SCH (21:00)
[2023-07-21] MEDS: Heparin Sodium 5,000 Units/ML Vial SUBCUT SCH ×3 (04:33→20:21)
[2023-07-21] MEDS: Piperacillin/Tazobactam 4.5 GM in Sodium Chloride 0.9% 100 ML IV SCH ×3 (05:14→20:59)
[2023-07-21 05:22] LABS: HEMATOCRIT 29.4 % (42.0-52.0); MEAN CORPUSCULAR HEMOGLOBIN 29.3 pg (28.0-32.0); MEAN CORPUSCULAR VOLUME 86.2 fl (83.0-99.0); MEAN PLATELET VOLUME 11.1 fl (9.4-12.4); PLATELET COUNT,PLT 185 K/mm3 (150-400); RED BLOOD CELL COUNT 3.41 M/mm3 (4.52-5.90); WHITE BLOOD CELL COUNT,WBC 10.52 K/mm3 (3.9-11.3)
[2023-07-21] MEDS: Acetaminophen 325 MG Tab PO PRN ×2 (05:37→19:36)
[2023-07-21 05:40] LABS: A/G RATIO 0.7 (1-2); ALBUMIN 2.7 g/dl (3.4-5.0); ANION GAP 14.5 (5-15); BILIRUBIN TOTAL 0.5 mg/dL (0.2-1.0); BUN/CREATININE RATIO 22.5 (14-18); CALCIUM 7.8 mg/dL (8.5-10.1); EST CRCL DRUG DOSING (CG) 43.83 mL/min; POTASSIUM,K 4.5 mEq/L (3.5-5.1); PROTEIN TOTAL,TP 6.5 g/dl (6.4-8.2)
[2023-07-21 05:55] LABS: C-REACTIVE PROTEIN 15.4 mg/dL (<1.0)
[2023-07-21] MEDS ORDERED: Sodium Chloride 0.9% 1,000 ML IV SCH (06:00)
[2023-07-21] MEDS: Insulin Lispro 100 Unit/ML 3 ML KwikPen SUBCUT SCH ×4 (07:38→20:50)
[2023-07-21] MEDS: Insulin Glargine,Human Rec. Analog 100 Units/ML 3 ML Pen SUBCUT SCH ×2 (08:01→20:49)
[2023-07-21] MEDS: Cyclobenzaprine 10 MG Tab PO SCH ×3 (08:02→20:20)
[2023-07-21] MEDS: Citalopram 20 MG Tab PO SCH (08:02)
[2023-07-21] MEDS: Pregabalin 25 MG Cap PO SCH ×2 (08:03→20:20)
[2023-07-21] MEDS: Albuterol/Ipratropium 3.0-0.5 MG/3 ML Neb Soln NEB SCH ×3 (08:36→20:17)
[2023-07-21] MEDS: Tamsulosin 0.4 MG Cap.ER PO SCH (11:43)
[2023-07-21] MEDS: Dextromethorphan HBr 30 MG/5 ML Susp ML PO PRN ×2 (13:41→21:41)
[2023-07-21 14:34] LABS: ANION GAP 15.5 (5-15); BUN/CREATININE RATIO 23.2 (14-18); CALCIUM 7.6 mg/dL (8.5-10.1); CREATININE 2.2 mg/dL (0.7-1.3); EST CRCL DRUG DOSING (CG) 39.85 mL/min; POTASSIUM,K 4.5 mEq/L (3.5-5.1)
[2023-07-21] MEDS ORDERED: Furosemide 40 MG/4 ML VIAL IVPUSH ONE (15:09)
[2023-07-21] MEDS ORDERED: Benzocaine/Cetylpyridinium/Menthol Lozenge MUCMEM PRN (15:54)
[2023-07-21] MEDS: traZODone 50 MG Tab PO SCH (23:40)
[2023-07-22] MEDS: Benzonatate 100 MG Cap PO PRN ×2 (04:36→20:50)
[2023-07-22] MEDS: Heparin Sodium 5,000 Units/ML Vial SUBCUT SCH ×3 (04:37→20:51)
[2023-07-22] MEDS: Piperacillin/Tazobactam 4.5 GM in Sodium Chloride 0.9% 100 ML IV SCH ×3 (05:21→21:32)
[2023-07-22 05:51] LABS: HEMATOCRIT 28.6 % (42.0-52.0); MEAN CORPUSCULAR VOLUME 85.9 fl (83.0-99.0); MEAN PLATELET VOLUME 11.3 fl (9.4-12.4); PLATELET COUNT,PLT 213 K/mm3 (150-400); RED BLOOD CELL COUNT 3.33 M/mm3 (4.52-5.90); WHITE BLOOD CELL COUNT,WBC 10.06 K/mm3 (3.9-11.3)
[2023-07-22 06:03] LABS: A/G RATIO 0.7 (1-2); ALBUMIN 2.7 g/dl (3.4-5.0); ANION GAP 17.3 (5-15); BILIRUBIN TOTAL 0.5 mg/dL (0.2-1.0); BUN/CREATININE RATIO 21.6 (14-18); CALCIUM 7.7 mg/dL (8.5-10.1); CREATININE 2.5 mg/dL (0.7-1.3); EST CRCL DRUG DOSING (CG) 35.07 mL/min; POTASSIUM,K 4.3 mEq/L (3.5-5.1); PROTEIN TOTAL,TP 6.5 g/dl (6.4-8.2)
[2023-07-22] MEDS: Albuterol/Ipratropium 3.0-0.5 MG/3 ML Neb Soln NEB SCH ×3 (06:06→20:57)
[2023-07-22 06:09] LABS: C-REACTIVE PROTEIN 16.8 mg/dL (<1.0)
[2023-07-22] MEDS: Acetaminophen 325 MG Tab PO PRN ×3 (06:18→20:50)
[2023-07-22] MEDS: Insulin Lispro 100 Unit/ML 3 ML KwikPen SUBCUT SCH ×4 (07:36→21:50)
[2023-07-22] MEDS: Bumetanide 1 MG Tab PO SCH (08:26)
[2023-07-22] MEDS: Citalopram 20 MG Tab PO SCH (08:27)
[2023-07-22] MEDS: Cyclobenzaprine 10 MG Tab PO SCH ×3 (08:27→20:50)
[2023-07-22] MEDS: Insulin Glargine,Human Rec. Analog 100 Units/ML 3 ML Pen SUBCUT SCH ×2 (08:28→21:33)
[2023-07-22] MEDS: Pregabalin 25 MG Cap PO SCH ×2 (08:28→20:51)
[2023-07-22] MEDS: Tamsulosin 0.4 MG Cap.ER PO SCH (11:12)
[2023-07-22 14:38] LABS: ANION GAP 16.5 (5-15); CALCIUM 7.8 mg/dL (8.5-10.1); CREATININE 2.6 mg/dL (0.7-1.3); EST CRCL DRUG DOSING (CG) 33.72 mL/min; POTASSIUM,K 4.5 mEq/L (3.5-5.1)
[2023-07-22] MEDS ORDERED: Bumetanide 1 MG Tab PO ONE (15:04)
[2023-07-22] MEDS: traZODone 50 MG Tab PO SCH (20:51)
[2023-07-22] MEDS: Simethicone 80 MG Tab.Chew PO PRN (22:03)
[2023-07-23] MEDS: Acetaminophen 325 MG Tab PO PRN ×3 (02:59→20:42)
[2023-07-23] MEDS: Benzonatate 100 MG Cap PO PRN ×2 (05:21→20:42)
[2023-07-23] MEDS: Heparin Sodium 5,000 Units/ML Vial SUBCUT SCH ×3 (05:21→20:39)
[2023-07-23] MEDS: Piperacillin/Tazobactam 4.5 GM in Sodium Chloride 0.9% 100 ML IV SCH ×3 (05:23→21:23)
[2023-07-23] MEDS: Albuterol/Ipratropium 3.0-0.5 MG/3 ML Neb Soln NEB SCH ×3 (05:34→20:23)
[2023-07-23 05:55] LABS: HEMATOCRIT 28.7 % (42.0-52.0); HEMOGLOBIN 10.1 gm/dl (14.0-18.0); MEAN CORPUSCULAR HEMOGLOBIN 30.1 pg (28.0-32.0); MEAN CORPUSCULAR HGB CONC 35.2 g/dl (32.0-36.0); MEAN CORPUSCULAR VOLUME 85.7 fl (83.0-99.0); PLATELET COUNT,PLT 231 K/mm3 (150-400); RED BLOOD CELL COUNT 3.35 M/mm3 (4.52-5.90); WHITE BLOOD CELL COUNT,WBC 9.51 K/mm3 (3.9-11.3)
[2023-07-23 06:02] LABS: A/G RATIO 0.7 (1-2); ALBUMIN 2.7 g/dl (3.4-5.0); ANION GAP 17.1 (5-15); BILIRUBIN TOTAL 0.5 mg/dL (0.2-1.0); CALCIUM 7.8 mg/dL (8.5-10.1); CREATININE 2.4 mg/dL (0.7-1.3); EST CRCL DRUG DOSING (CG) 36.53 mL/min; POTASSIUM,K 4.1 mEq/L (3.5-5.1); PROTEIN TOTAL,TP 6.4 g/dl (6.4-8.2)
[2023-07-23 06:18] LABS: C-REACTIVE PROTEIN 12.6 mg/dL (<1.0)
[2023-07-23] MEDS ORDERED: Codeine/Promethazine 10-6.25 MG/5 ML Syrup 5 ML UD Cup PO PRN (08:35)
[2023-07-23] MEDS: Bumetanide 1 MG Tab PO SCH (08:46)
[2023-07-23] MEDS: Cyclobenzaprine 10 MG Tab PO SCH ×3 (08:46→20:39)
[2023-07-23] MEDS: Pregabalin 25 MG Cap PO SCH ×2 (08:47→20:40)
[2023-07-23] MEDS: Citalopram 20 MG Tab PO SCH (08:47)
[2023-07-23] MEDS: Insulin Glargine,Human Rec. Analog 100 Units/ML 3 ML Pen SUBCUT SCH ×2 (08:48→21:22)
[2023-07-23] MEDS: Insulin Lispro 100 Unit/ML 3 ML KwikPen SUBCUT SCH ×4 (08:49→21:22)
[2023-07-23] MEDS: amLODIPine 5 MG Tab PO SCH (09:02)
[2023-07-23] MEDS: Simethicone 80 MG Tab.Chew PO PRN (10:57)
[2023-07-23] MEDS: Tamsulosin 0.4 MG Cap.ER PO SCH (13:56)
[2023-07-23] MEDS ORDERED: Bumetanide 1 MG Tab PO ONE (14:00)
[2023-07-23] MEDS: traZODone 50 MG Tab PO SCH (20:39)
[2023-07-24] MEDS: Heparin Sodium 5,000 Units/ML Vial SUBCUT SCH ×3 (03:08→20:33)
[2023-07-24 05:32] LABS: HEMATOCRIT 28.9 % (42.0-52.0); HEMOGLOBIN 10.1 gm/dl (14.0-18.0); MEAN CORPUSCULAR HEMOGLOBIN 29.7 pg (28.0-32.0); MEAN CORPUSCULAR HGB CONC 34.9 g/dl (32.0-36.0); MEAN PLATELET VOLUME 10.5 fl (9.4-12.4); PLATELET COUNT,PLT 268 K/mm3 (150-400); WHITE BLOOD CELL COUNT,WBC 9.47 K/mm3 (3.9-11.3)
[2023-07-24 05:36] LABS: A/G RATIO 0.7 (1-2); ALBUMIN 2.7 g/dl (3.4-5.0); ANION GAP 12.8 (5-15); BILIRUBIN TOTAL 0.4 mg/dL (0.2-1.0); BUN/CREATININE RATIO 21.7 (14-18); CALCIUM 8.2 mg/dL (8.5-10.1); CREATININE 1.8 mg/dL (0.7-1.3); EST CRCL DRUG DOSING (CG) 48.7 mL/min; POTASSIUM,K 3.8 mEq/L (3.5-5.1); PROTEIN TOTAL,TP 6.6 g/dl (6.4-8.2)
[2023-07-24] MEDS: Piperacillin/Tazobactam 4.5 GM in Sodium Chloride 0.9% 100 ML IV SCH ×3 (05:55→21:04)
[2023-07-24] MEDS: Albuterol/Ipratropium 3.0-0.5 MG/3 ML Neb Soln NEB SCH ×3 (06:05→20:43)
[2023-07-24] MEDS: Insulin Lispro 100 Unit/ML 3 ML KwikPen SUBCUT SCH ×4 (06:55→20:33)
[2023-07-24] MEDS: Insulin Glargine,Human Rec. Analog 100 Units/ML 3 ML Pen SUBCUT SCH ×2 (08:30→20:33)
[2023-07-24] MEDS: amLODIPine 5 MG Tab PO SCH (08:31)
[2023-07-24] MEDS: Potassium Chloride 20 MEQ Tab.ER PO SCH (08:31)
[2023-07-24] MEDS: Citalopram 20 MG Tab PO SCH (08:31)
[2023-07-24] MEDS: Bumetanide 1 MG Tab PO SCH (08:31)
[2023-07-24] MEDS: Pregabalin 25 MG Cap PO SCH ×2 (08:31→20:34)
[2023-07-24] MEDS: Cyclobenzaprine 10 MG Tab PO SCH ×3 (08:32→20:34)
[2023-07-24] MEDS: Tamsulosin 0.4 MG Cap.ER PO SCH (12:06)
[2023-07-24] MEDS ORDERED: Bumetanide 1 MG Tab PO ONE (14:00)
[2023-07-24] MEDS: traZODone 50 MG Tab PO SCH (20:34)
[2023-07-24] MEDS: Benzonatate 100 MG Cap PO PRN (20:34)
[2023-07-24] MEDS: Acetaminophen 325 MG Tab PO PRN (20:34)
[2023-07-25] MEDS: Heparin Sodium 5,000 Units/ML Vial SUBCUT SCH ×2 (03:35→12:04)
[2023-07-25 05:40] LABS: ANION GAP 13.3 (5-15); CALCIUM 8.4 mg/dL (8.5-10.1); CREATININE 1.5 mg/dL (0.7-1.3); EST CRCL DRUG DOSING (CG) 58.45 mL/min; POTASSIUM,K 4.3 mEq/L (3.5-5.1)
[2023-07-25] MEDS: Albuterol/Ipratropium 3.0-0.5 MG/3 ML Neb Soln NEB SCH (05:58)
[2023-07-25] MEDS: Piperacillin/Tazobactam 4.5 GM in Sodium Chloride 0.9% 100 ML IV SCH (06:09)
[2023-07-25] MEDS: Insulin Lispro 100 Unit/ML 3 ML KwikPen SUBCUT SCH ×2 (07:46→11:59)
[2023-07-25] MEDS: Insulin Glargine,Human Rec. Analog 100 Units/ML 3 ML Pen SUBCUT SCH (08:26)
[2023-07-25] MEDS: amLODIPine 5 MG Tab PO SCH (08:27)
[2023-07-25] MEDS: Pregabalin 25 MG Cap PO SCH (08:27)
[2023-07-25] MEDS: Cyclobenzaprine 10 MG Tab PO SCH (08:27)
[2023-07-25] MEDS: Potassium Chloride 20 MEQ Tab.ER PO SCH (08:27)
[2023-07-25] MEDS: Citalopram 20 MG Tab PO SCH (08:27)
[2023-07-25] MEDS: Bumetanide 1 MG Tab PO SCH (08:28)
[2023-07-25] MEDS: Tamsulosin 0.4 MG Cap.ER PO SCH (12:01)
[2023-07-25 12:12] VITALS: BP 158/83; PULSE 80
== END 2023-07-25 12:29 | disposition home or self-care (01) | DRG 193 ==
LOC: JD.ED 05:44 → JD.MS 10:31
PROVIDERS: ADMIT Emergency Medicine; ATTEND Internal Medicine
DX: J18.9 Pneumonia, unspecified organism (principal); R09.02 Hypoxemia; I50.33 Acute on chronic diastolic (congestive) heart failure; J96.01 Acute respiratory failure with hypoxia; I13.0 Hypertensive heart and chronic kidney disease with heart failure and stage 1 through stage 4 chronic kidney disease, or unspecified chronic kidney disease; E11.52 Type 2 diabetes mellitus with diabetic peripheral angiopathy with gangrene; N17.9 Acute kidney failure, unspecified; E87.1 Hypo-osmolality and hyponatremia; I96 Gangrene, not elsewhere classified; J15.9 Unspecified bacterial pneumonia; I11.0 Hypertensive heart disease with heart failure; E11.22 Type 2 diabetes mellitus with diabetic chronic kidney disease; K59.09 Other constipation; Z20.822 Contact with and (suspected) exposure to COVID-19; F41.9 Anxiety disorder, unspecified; E11.42 Type 2 diabetes mellitus with diabetic polyneuropathy; M19.90 Unspecified osteoarthritis, unspecified site; I10 Essential (primary) hypertension; G47.33 Obstructive sleep apnea (adult) (pediatric); I25.10 Atherosclerotic heart disease of native coronary artery without angina pectoris; E04.1 Nontoxic single thyroid nodule; R77.8 Other specified abnormalities of plasma proteins; E11.621 Type 2 diabetes mellitus with foot ulcer; L97.523 Non-pressure chronic ulcer of other part of left foot with necrosis of muscle; N18.31 Chronic kidney disease, stage 3a; E78.00 Pure hypercholesterolemia, unspecified; Z88.8 Allergy status to other drugs, medicaments and biological substances; E66.01 Morbid (severe) obesity due to excess calories; Z87.01 Personal history of pneumonia (recurrent); Z98.890 Other specified postprocedural states; Z90.89 Acquired absence of other organs; Z68.39 Body mass index [BMI] 39.0-39.9, adult; N40.0 Benign prostatic hyperplasia without lower urinary tract symptoms; Z79.4 Long term (current) use of insulin; Z79.899 Other long term (current) drug therapy
CPT/HCPCS: 0241U; 36415; 51701; 51798; 71045; 71045-26; 71275; 71275-26; 76775; 76775-26; 80048; 80053; 81001; 82947; 83605; 83880; 83930; 83935; 84153; 84300; 84484; 85025; 85027; 85379; 86140; 86738; 87040; 87070; 87075; 87077; 87186; 87205; 93005; 93010; 94640; 94761; 97162-GP; 99285; A9270-GY; J0456; J0696; J1644; J1815; J1815-GY; J1940; J2543; J3490; J7030; J7050; J7620-GY; Q9967

== ENCOUNTER 2024-01-22 17:56 | Emergency (ER) | payer MEDICARE, MEDICAID ==
[2024-01-22] MEDS: predniSONE 20 MG Tab PO ONE (19:11)
[2024-01-22 19:57] VITALS: BP 164/80; PULSE 77
== END 2024-01-22 19:25 | disposition home or self-care (01) ==
LOC: JD.ED 17:56
DX: G51.0 Bell's palsy (principal); E11.40 Type 2 diabetes mellitus with diabetic neuropathy, unspecified; I50.9 Heart failure, unspecified; Z79.4 Long term (current) use of insulin; Z79.899 Other long term (current) drug therapy; Z88.6 Allergy status to analgesic agent
CPT/HCPCS: 82947; 93005; 99284; J7512

== ENCOUNTER 2024-04-05 10:46 | Emergency (ER) | payer MEDICARE, MEDICAID ==
[2024-04-05 10:56] VITALS: BP 162/93; PULSE 83
== END 2024-04-05 12:43 | disposition home or self-care (01) ==
LOC: JD.ED 10:46
DX: S91.114A Laceration without foreign body of right lesser toe(s) without damage to nail, initial encounter (principal); E11.42 Type 2 diabetes mellitus with diabetic polyneuropathy; Z79.899 Other long term (current) drug therapy; Z79.4 Long term (current) use of insulin; W26.8XXA Contact with other sharp object(s), not elsewhere classified, initial encounter
CPT/HCPCS: 12001; 99282

== ENCOUNTER 2024-06-19 12:27 | Emergency (ER) | payer MEDICARE, MEDICAID ==
[2024-06-19 13:31] LABS: BASOPHILS PERCENT AUTO 0.4 % (0.0-1.0); EOSINOPHILS ABSOLUTE AUTO 0.2 K/mm3 (0.0-0.4); EOSINOPHILS PERCENT AUTO 3.9 % (0.0-6.0); HEMATOCRIT 40.5 % (42.0-52.0); HEMOGLOBIN 13.9 gm/dl (14.0-18.0); IMMATURE GRAN ABSOLUTE AUTO 0.02 K/mm3 (0.00-0.05); IMMATURE GRAN PERCENT AUTO 0.4 % (0.0-0.4); LYMPHOCYTES ABSOLUTE AUTO 0.7 K/mm3 (1.0-4.8); LYMPHOCYTES PERCENT AUTO 14.5 % (24.0-44.0); MEAN CORPUSCULAR HEMOGLOBIN 30.8 pg (28.0-32.0); MEAN CORPUSCULAR HGB CONC 34.3 g/dl (32.0-36.0); MEAN CORPUSCULAR VOLUME 89.6 fl (83.0-99.0); MONOCYTES ABSOLUTE AUTO 0.5 K/mm3 (0.0-0.8); MONOCYTES PERCENT AUTO 8.8 % (0.0-8.0); NEUTROPHILS ABSOLUTE AUTO 3.7 K/mm3 (1.8-7.7); PLATELET COUNT,PLT 176 K/mm3 (150-400); RED BLOOD CELL COUNT 4.52 M/mm3 (4.52-5.90)
[2024-06-19 13:55] LABS: A/G RATIO 1.2 (1-2); ALBUMIN 3.2 g/dl (3.4-5.0); ANION GAP 9.4 (5-15); BILIRUBIN TOTAL 0.4 mg/dL (0.2-1.0); CALCIUM 8.5 mg/dL (8.5-10.1); CREATININE 1.4 mg/dL (0.7-1.3); EST CRCL DRUG DOSING (CG) 61.83 mL/min; POTASSIUM,K 4.4 mEq/L (3.5-5.1); PROTEIN TOTAL,TP 5.8 g/dl (6.4-8.2)
[2024-06-19 14:00] LABS: LACTIC ACID 0.9 mmol/L (0.4-2.0)
[2024-06-19] MEDS: Amoxicillin/Clavulanate K 875-125 MG Tab PO ONE (14:35)
[2024-06-19 14:55] VITALS: BP 140/81; PULSE 78
== END 2024-06-19 14:45 | disposition home or self-care (01) ==
LOC: JD.ED 12:27
DX: J01.90 Acute sinusitis, unspecified (principal); I50.9 Heart failure, unspecified; E11.40 Type 2 diabetes mellitus with diabetic neuropathy, unspecified; F17.210 Nicotine dependence, cigarettes, uncomplicated; Z88.6 Allergy status to analgesic agent; Z88.8 Allergy status to other drugs, medicaments and biological substances; Z79.899 Other long term (current) drug therapy; Z79.4 Long term (current) use of insulin
CPT/HCPCS: 36415; 71045; 80053; 83605; 85025; 99284; A9270; U0002